=== PATIENT | female | born 1985 | race Caucasian/White ===

== ENCOUNTER 2017-02-12 13:08 | Emergency (ER) | payer MEDICAID ==
[2017-02-12 13:27] VITALS: BP 119/22
[2017-02-12] MEDS ORDERED: Ketorolac 30 MG/ML SDV IM ONE (14:05)
[2017-02-12] MEDS ORDERED: Cyclobenzaprine 10 MG Tab PO PRN (14:07)
[2017-02-12] MEDS ORDERED: Cyclobenzaprine 10 MG Tab PO ONE (14:09)
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
== END 2017-02-12 14:40 | disposition home or self-care (01) ==
LOC: KA.ED 13:08
DX: S60.221A Contusion of right hand, initial encounter (principal); M79.1 Myalgia; F41.9 Anxiety disorder, unspecified; F32.9 Major depressive disorder, single episode, unspecified; F17.210 Nicotine dependence, cigarettes, uncomplicated; Z88.5 Allergy status to narcotic agent; Z88.8 Allergy status to other drugs, medicaments and biological substances; Z79.899 Other long term (current) drug therapy; Z90.49 Acquired absence of other specified parts of digestive tract; Z90.710 Acquired absence of both cervix and uterus; Y04.0XXA Assault by unarmed brawl or fight, initial encounter
CPT/HCPCS: 73130; 96372; 99283; A9270; J1885

== ENCOUNTER 2017-05-29 12:14 | Emergency (ER) | payer MEDICAID ==
[2017-05-29] MEDS: Cephalexin 250 MG Cap PO SCH ×2 (13:00→13:34)
--- NOTE | 2017-05-29 13:16 | EDM.PDOC ---
ED HPI GENERAL MEDICAL PROBLEM - General Chief Complaint: Genitourinary Problem Stated Complaint: Dysuria Time Seen by Provider: 05/29/17 12:45 Source of Information: Reports: Patient History Limitations: Reports: No Limitations - History of Present Illness INITIAL COMMENTS - FREE TEXT/NARRATIVE: 31 YO WF presents to ER with 2 day history of dysuria with frequency and urgency. Pt reports she noticed cloudy urine this am prompting ER evaluation. Pt reports she had been taking OTC azo for her symptoms but they became worse. Pt denies any back pain, denies fever/chills and denies vomiting. Pt reports feeling generally weak and tired. Onset Date: 05/27/17 Duration: Day(s): (2) Quality: Reports: Burning Severity: Mild Associated Symptoms: Reports: No Other Symptoms, Malaise. Denies: Fever/Chills , Loss of Appetite, Nausea/Vomiting Treatments OXYACETYLENE BURNER: Reports: NSAIDS - Related Data Allergies Allergy/AdvReac Type Severity Reaction Status Date / Time celecoxib [From Celebrex] Allergy Unknown Hives Verified 05/29/17 12:46 tramadol Allergy Hives Verified 05/29/17 12:46 Home Meds: Home Meds ALPRAZolam [Xanax] 0.5 mg PO BID 03/23/15 [History] Ibuprofen 800 mg PO Q4HR PRN 04/30/16 [History] Gabapentin [Gabapentin] 1 cap PO TID 10/24/16 [History] tiZANidine HCl [Tizanidine HCl] 4 mg PO TID PRN 10/24/16 [History] Cephalexin [Keflex] 500 mg PO Q6HR #28 cap 05/29/17 [Rx] Fluconazole [Diflucan] 150 mg PO ONETIME #1 tablet 05/29/17 [Rx] Venlafaxine [Venlafaxine HCl ER] 150 mg PO DAILY 05/29/17 [History] Past Medical History - Past Health History Medical/Surgical History: Denies Medical/Surgical History HEENT History: Reports: None Gastrointestinal History: Reports: None 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 feels look like ringworm - Infectious Disease History Infectious Disease History: Reports: Hepatitis C, MRSA - Past Surgical History GI Surgical History: Reports: Appendectomy, Cholecystectomy Female Surgical History: Reports: Hysterectomy Neurological Surgical History: Reports: Lumbar Spine Social & Family History - Family History Family Medical History: Noncontributory - Tobacco Use Smoking Status *Q: Current Every Day Smoker Years of Tobacco use: 17 Packs/Tins Daily: 0.7 Used Tobacco, but Quit: No Second Hand Smoke Exposure: No - Caffeine Use Caffeine Use: Reports: Energy Drinks - Alcohol Use Days Per Week of Alcohol Use: 0 Number of Drinks Per Day: 1 Total Drinks Per Week: 0 - Recreational Drug Use Recreational Drug Use: No Drug Use in Last 12 Months: Yes Recreational Drug Type: Reports: Marijuana/Hashish Recreational Drug Use Frequency: Not Used In Over 6 Months - Living Situation & Occupation Living situation: Reports: Single ED ROS GENERAL - Review of Systems Review Of Systems: See Below Constitutional: Reports: No Symptoms HEENT: Reports: No Symptoms Respiratory: Reports: No Symptoms Cardiovascular: Reports: No Symptoms Endocrine: Reports: No Symptoms GI/Abdominal: Reports: No Symptoms : Reports: Dysuria, Frequency, Urgency Musculoskeletal: Reports: No Symptoms Skin: Reports: No Symptoms Neurological: Reports: No Symptoms Psychiatric: Reports: No Symptoms Hematologic/Lymphatic: Reports: No Symptoms Immunologic: Reports: No Symptoms ED EXAM, RENAL/ - Physical Exam Exam: See Below Exam Limited By: No Limitations General Appearance: Alert, WD/WN, No Apparent Distress Head: Atraumatic, Normocephalic Neck: Normal Inspection, Supple, Non-Tender, Full Range of Motion Respiratory/Chest: No Respiratory Distress, Lungs Clear, Normal Breath Sounds, No Accessory Muscle Use, Chest Non-Tender Cardiovascular: Normal Peripheral Pulses, Regular Rate, Rhythm, No Edema, No Gallop, No JVD, No Murmur, No Rub GI/Abdominal: Normal Bowel Sounds, Soft, Non-Tender, No Organomegaly, No Distention, No Abnormal Bruit, No Mass Back Exam: Normal Inspection, Full Range of Motion, NT Extremities: Normal Inspection, Normal Range of Motion, Non-Tender, Normal Capillary Refill, No Pedal Edema Neurological: Alert, Oriented, CN II-XII Intact, Normal Cognition, Normal Gait, Normal Reflexes, No Motor/Sensory Deficits Psychiatric: Normal Affect, Normal Mood Skin Exam: Warm, Dry, Intact, Normal Color, No Rash Lymphatic: No Adenopathy Course - Vital Signs Last Recorded V/S: Last Vital Signs Temp 37.0 C 05/29/17 12:43 Pulse 98 05/29/17 12:43 Resp 18 05/29/17 12:43 BP 126/74 05/29/17 12:43 Pulse Ox 97 05/29/17 12:43 - Orders/Labs/Meds Orders: Active Orders 24 hr Category Date Time Status CULTURE URINE [RM] Stat Lab 05/29/17 13:17 Uncollected Cephalexin [Keflex] Med 05/29/17 13:30 Active 500 mg PO Q6HR Medication Orders Cephalexin (Keflex) 500 mg PO Q6HR [facility] Stop: 05/30/17 05:01 Labs: Laboratory Tests 05/29/17 Range/Units 12:30 Specimen Type Urincc Urine Color Yellow (YELLOW) Urine Appearance Cloudy H (CLEAR) Urine pH 6.0 (5.0-9.0) Ur Specific [place] 1.025 (1.005-1.030) Urine Protein 100 H (NEGATIVE) mg/dL Urine Glucose (UA) Negative (NEGATIVE) mg/dL Urine Ketones Negative (NEGATIVE) mg/dL Urine Occult Blood Moderate H (NEGATIVE) Urine Nitrite Positive H (NEGATIVE) Urine Bilirubin Negative (NEGATIVE) Urine Urobilinogen 0.2 (0.2-1.0) E.U./dL Ur Leukocyte Esterase Large H (NEGATIVE) Urine RBC 20-30 H /HPF Urine WBC 50-75 H /HPF Ur Epithelial Cells Few /LPF Urine Bacteria Moderate H (NONE TO FEW) /HPF Urine Mucus Rare H (NEGATIVE) /LPF Meds: Medications Generic Name Dose Route Start Last Admin Trade Name Freq PRN Reason Stop Dose Admin Cephalexin 500 mg 05/29/17 13:30 Keflex PO 05/30/17 05:01 Q6HR [facility] Departure - Departure Time of Disposition: 13:15 Disposition: Home, Self-Care 01 Condition: Good Clinical Impression: UTI, Urinary tract infectious disease - Discharge Information Prescriptions: Cephalexin [Keflex] 500 mg PO Q6HR #28 cap Fluconazole [Diflucan] 150 mg PO ONETIME #1 tablet Instructions: Urinary Tract Infection, Adult, [id number] Referrals: Nola Bardales MD [Primary Care Provider] - Forms: ED Department Discharge - My Orders Last 24 Hours: My Active Orders 05/29/17 13:17 CULTURE URINE [RM] Stat 05/29/17 13:30 Cephalexin [Keflex] 500 mg PO Q6HR - Assessment/Plan Last 24 Hours: My Active Orders 05/29/17 13:17 CULTURE URINE [RM] Stat 05/29/17 13:30 Cephalexin [Keflex] 500 mg PO Q6HR Assessment:: 1. urinary tract infection Plan: 1. discharge home 2. keflex 500mg PO Q6 x 7 days 3. continue Azo PRN 4. follow up with clinic in 2 days if symptoms continue and culture results 5. return to ER for worsening symptoms
[2017-05-29 13:28] VITALS: BP 126/74
== END 2017-05-29 13:40 | disposition home or self-care (01) ==
LOC: KA.ED 12:14
DX: N39.0 Urinary tract infection, site not specified (principal); F17.210 Nicotine dependence, cigarettes, uncomplicated; F41.9 Anxiety disorder, unspecified; F32.9 Major depressive disorder, single episode, unspecified; Z90.49 Acquired absence of other specified parts of digestive tract; Z90.89 Acquired absence of other organs; Z88.8 Allergy status to other drugs, medicaments and biological substances; Z90.710 Acquired absence of both cervix and uterus; Z79.899 Other long term (current) drug therapy
CPT/HCPCS: 81001; 87086; 87088; 99283; A9270; 87186

== ENCOUNTER 2017-06-12 20:20 | Emergency (ER) | payer MEDICAID ==
[2017-06-12] MEDS ORDERED: Cephalexin 250 MG Cap PO ONE (21:18)
[2017-06-12] MEDS ORDERED: diphenhydrAMINE 25 MG Cap PO ONE (21:22)
[2017-06-12] MEDS ORDERED: diphenhydrAMINE 25 MG Cap ONE (21:22)
--- NOTE | 2017-06-12 21:28 | EDM.PDOC ---
ED HPI GENERAL MEDICAL PROBLEM - General Stated Complaint: ARM REDNESS Time Seen by Provider: 06/12/17 21:09 Source of Information: Reports: Patient History Limitations: Reports: No Limitations - History of Present Illness INITIAL COMMENTS - FREE TEXT/NARRATIVE: Patient presents with painful red patch on right deltoid that started yesterday and has worsened today. She says two days ago she was given two vaccinations at this site: one flu shot and the other she doesn't know what it was. This morning she had a fever up to 103 temp. She is taking Ibuprofen and Tylenol for pain and fever control now. She says it hurts to raise her right arm and the red area is very tender. - Related Data Allergies Allergy/AdvReac Type Severity Reaction Status Date / Time celecoxib [From Celebrex] Allergy Unknown Hives Verified 05/29/17 12:46 tramadol Allergy Hives Verified 05/29/17 12:46 Home Meds: Home Meds ALPRAZolam [Xanax] 0.5 mg PO BID 03/23/15 [History] Ibuprofen 800 mg PO Q4HR PRN 04/30/16 [History] Gabapentin [Gabapentin] 1 cap PO TID 10/24/16 [History] tiZANidine HCl [Tizanidine HCl] 4 mg PO TID PRN 10/24/16 [History] Cephalexin [Keflex] 500 mg PO Q6HR #28 cap 05/29/17 [Rx] Fluconazole [Diflucan] 150 mg PO ONETIME #1 tablet 05/29/17 [Rx] Venlafaxine [Venlafaxine HCl ER] 150 mg PO DAILY 05/29/17 [History] Past Medical History - Past Health History Medical/Surgical History: Denies Medical/Surgical History HEENT History: Reports: None Gastrointestinal History: Reports: None 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 feels look like ringworm - Infectious Disease History Infectious Disease History: Reports: Hepatitis C, MRSA - Past Surgical History GI Surgical History: Reports: Appendectomy, Cholecystectomy Female Surgical History: Reports: Hysterectomy Neurological Surgical History: Reports: Lumbar Spine Social & Family History - Family History Family Medical History: Noncontributory - Tobacco Use Smoking Status *Q: Current Every Day Smoker Years of Tobacco use: 17 Packs/Tins Daily: 0.7 Used Tobacco, but Quit: No Second Hand Smoke Exposure: No - Caffeine Use Caffeine Use: Reports: Energy Drinks - Alcohol Use Days Per Week of Alcohol Use: 0 Number of Drinks Per Day: 1 Total Drinks Per Week: 0 - Recreational Drug Use Recreational Drug Use: No Drug Use in Last 12 Months: Yes Recreational Drug Type: Reports: Marijuana/Hashish Recreational Drug Use Frequency: Not Used In Over 6 Months - Living Situation & Occupation Living situation: Reports: Single ED ROS GENERAL - Review of Systems Review Of Systems: See Below Constitutional: Reports: Fever HEENT: Reports: No Symptoms Respiratory: Denies: Shortness of Breath Cardiovascular: Denies: Chest Pain, Syncope GI/Abdominal: Denies: Abdominal Pain, Vomiting : Denies: Dysuria (she just recently finished a 3-week course of treatment for a UTI) Musculoskeletal: Reports: No Symptoms Skin: Denies: Cyanosis, Jaundice, Mottled, Pallor, Diaphoresis Neurological: Denies: Confusion, Dizziness, Syncope Psychiatric: Denies: Agitation, Anxiety, Confusion ED EXAM, SKIN/RASH Exam: See Below Exam Limited By: No Limitations General Appearance: Alert, WD/WN, No Apparent Distress Eye Exam: Bilateral Eye: EOMI, Normal Inspection, PERRL Ears: Normal External Exam, Hearing Grossly Normal Nose: Normal Inspection, No Blood Throat/Mouth: Normal Inspection, Normal Lips, Normal Voice, No Airway Compromise Head: Atraumatic, Normocephalic Neck: Normal Inspection, Full Range of Motion Respiratory/Chest: No Respiratory Distress Neurological: Alert, Oriented, Normal Cognition, No Motor/Sensory Deficits Psychiatric: Normal Affect, Normal Mood Skin: Warm, Dry, Intact, Other (There is an irregular, indurated area of erythema on right deltoid measuring approximately 8x10 cm in size and tender to palpation.) Characteristics: Patchy Associated features: Warmth, Tenderness, Induration, Inflammation. No: Swelling , Scaling, Crusting, Weeping, Rough Course - Orders/Labs/Meds Meds: Medications Discontinued Medications Generic Name Dose Route Start Last Admin Trade Name Freq PRN Reason Stop Dose Admin Cephalexin 500 mg 06/12/17 21:18 Keflex PO 06/12/17 21:19 ONETIME ONE Diphenhydramine HCl 25 mg 06/12/17 21:22 Benadryl PO 06/12/17 21:23 ONETIME ONE Doxycycline Hyclate 100 mg 06/12/17 21:18 Vibramycin PO 06/12/17 21:19 ONETIME ONE - Re-Assessments/Exams Free Text/Narrative Re-Assessment/Exam: 06/12/17 21:25 Discussed findings, expectations and treatment plan with patient. She does have a history of MRSA. So will treat accordingly. She is discharged in stable condition. Departure - Departure Time of Disposition: 21:23 Disposition: Home, Self-Care 01 Condition: Good Clinical Impression: Cellulitis of right upper arm - Discharge Information Referrals: Nola Bardales MD [Primary Care Provider] - Additional Instructions: 1. Drink 8 cups of water daily. 2. Take the two antibiotics as directed. 3. Take Benadryl 25 mg every 8 hours until the redness is improving then as needed. No driving for 8 hours after a dose of Benadryl. 4. Follow up with your PCP in a couple days if not improving or sooner if worsening.
[2017-06-13 10:43] VITALS: BP 127/73
== END 2017-06-12 21:35 | disposition home or self-care (01) ==
LOC: KA.ED 20:20
DX: L03.113 Cellulitis of right upper limb (principal); F17.210 Nicotine dependence, cigarettes, uncomplicated; Z90.49 Acquired absence of other specified parts of digestive tract; Z90.710 Acquired absence of both cervix and uterus; Z79.899 Other long term (current) drug therapy; Z88.1 Allergy status to other antibiotic agents; Z88.5 Allergy status to narcotic agent
CPT/HCPCS: 99283; A9270

== ENCOUNTER 2017-06-13 11:15 | Inpatient (IN) | payer MEDICAID, SELFPAY ==
[2017-06-13] MEDS ORDERED: Piperacillin/Tazobactam/Dext 50 ML IV SCH (12:30)
[2017-06-13] MEDS ORDERED: cefTRIAXone 1 GM in Sodium Chloride 0.9% 50 ML IV SCH (13:00)
[2017-06-13] MEDS: Sodium Chloride 0.9% 1,000 ML IV SCH ×2 (13:34→23:11)
[2017-06-13] MEDS: cefTRIAXone 1 GM Vial IVPUSH SCH (13:38)
[2017-06-13] MEDS: Ondansetron 4 MG/2 ML SDV IV PRN ×2 (13:48→19:43)
[2017-06-13] MEDS: Nicotine 21 MG/24 Hr Patch TRDERM SCH (13:50)
[2017-06-13] MEDS: Morphine 2 MG/ML Syringe IVPUSH PRN ×2 (13:51→20:02)
[2017-06-13] MEDS: Ketorolac 30 MG/ML SDV IVPUSH PRN ×2 (16:05→21:57)
[2017-06-13] MEDS: Sodium Chloride 0.9% 5 ML Syringe FLUSH PRN (16:12)
[2017-06-13] MEDS ORDERED: ALPRAZolam 0.25 MG Tab PO PRN (19:15)
[2017-06-13] MEDS: Clobetasol 0.05% Crm 30 GM Tube TOP SCH ×2 (19:45→21:55)
[2017-06-13] MEDS ORDERED: tiZANidine 4 MG Tab PO PRN (19:45)
[2017-06-13] MEDS ORDERED: busPIRone 10 MG Tab PO SCH (21:00)
[2017-06-13] MEDS ORDERED: busPIRone 5 MG Tab ONE (21:51)
[2017-06-13] MEDS: Gabapentin 300 MG Cap PO SCH (21:54)
[2017-06-13] MEDS: Acetaminophen 500 MG Tab PO PRN (21:55)
[2017-06-14] MEDS: Ketorolac 30 MG/ML SDV IVPUSH PRN ×2 (05:15→15:00)
[2017-06-14] MEDS: Morphine 2 MG/ML Syringe IVPUSH PRN ×3 (07:21→20:39)
[2017-06-14] MEDS: Sodium Chloride 0.9% 5 ML Syringe FLUSH PRN (07:23)
--- NOTE | 2017-06-14 08:51 | PCM.PN ---
- General Info Date of Service: 06/14/17 Subjective Update: Ms. Etienne reports overall feeling better today with near resolution of generalized malaise, generalized weakness, and chills. Continues to have considerable pain in R arm; states she has been having improvement with ketorolac and morphine. Admits to moderate global "squeezing" headaches last evening and this morning. Denies fevers, chills, anorexia, shortness of breath, or other skin concerns. Nursing reports some increase in erythema yesterday with new line drawn around area affected. - Patient Data Vitals - Most Recent: Last Vital Signs Temp 36.7 C 06/14/17 06:53 Pulse 99 06/14/17 06:53 Resp 16 06/14/17 06:53 BP 133/101 H 06/14/17 06:53 Pulse Ox 99 06/14/17 06:53 Weight - Most Recent: 115.122 kg I&O - Last 24 Hours: Intake & Output 06/13/17 06/14/17 06/14/17 22:59 06:59 14:59 Intake Total 1845 1448 Output Total 400 600 Balance 1445 848 Lab Results Last 24 Hours: Laboratory Results - last 24 hr 06/13/17 06/13/17 06/14/17 Range/Units 13:10 13:10 07:15 WBC 15.6 H (5.0-10.0) 10^3/uL RBC 4.09 (3.80-5.50) 10^6/uL Hgb 12.0 (12.0-16.0) g/dL Hct 37.2 (37.0-47.0) % MCV 90.8 (82.0-92.0) fL MCH 29.2 (27.0-31.0) pg MCHC 32.2 (32.0-36.0) g/dL RDW 13.2 (11.5-14.5) % Plt Count 277 (150-300) 10^3/uL MPV 7.8 (7.4-10.4) fL Neut % (Auto) 81.2 H (50.0-70.0) % Lymph % (Auto) 11.0 L (20.0-40.0) % Humphreys % (Auto) 5.4 (2.0-8.0) % Eos % (Auto) 2.0 (1.0-3.0) % Baso % (Auto) 0.4 (0.0-1.0) % Neut # (Auto) 12.7 H (2.5-7.0) 10^3/uL Lymph # (Auto) 1.7 (1.0-4.0) 10^3/uL Humphreys # (Auto) 0.8 (0.1-0.8) 10^3/uL Eos # (Auto) 0.3 (0.1-0.3) 10^3/uL Baso # (Auto) 0.1 (0.0-0.1) 10^3/uL Lactic Acid 0.9 (0.4-2.0) mmol/L C-Reactive Protein 73.2 H (0.0-0.9) mg/dL 06/14/17 Range/Units 07:15 WBC (5.0-10.0) 10^3/uL RBC (3.80-5.50) 10^6/uL Hgb (12.0-16.0) g/dL Hct (37.0-47.0) % MCV (82.0-92.0) fL MCH (27.0-31.0) pg MCHC (32.0-36.0) g/dL RDW (11.5-14.5) % Plt Count (150-300) 10^3/uL MPV (7.4-10.4) fL Neut % (Auto) (50.0-70.0) % Lymph % (Auto) (20.0-40.0) % Humphreys % (Auto) (2.0-8.0) % Eos % (Auto) (1.0-3.0) % Baso % (Auto) (0.0-1.0) % Neut # (Auto) (2.5-7.0) 10^3/uL Lymph # (Auto) (1.0-4.0) 10^3/uL Humphreys # (Auto) (0.1-0.8) 10^3/uL Eos # (Auto) (0.1-0.3) 10^3/uL Baso # (Auto) (0.0-0.1) 10^3/uL Lactic Acid (0.4-2.0) mmol/L C-Reactive Protein 35.4 H (0.0-0.9) mg/dL Med Orders - Current: Current Medications Acetaminophen (Tylenol Extra Strength) 1,000 mg PO Q6HR PRN PRN Reason: Pain Last Admin: 06/13/17 21:55 Dose: 1,000 mg Alprazolam (Xanax) 0.5 mg PO BID PRN PRN Reason: Anxiety Buspirone HCl (Buspar) 10 mg PO BID [facility] Ceftriaxone Sodium (Rocephin) 1 gm IVPUSH Q24H [facility] Last Admin: 06/13/17 13:38 Dose: 1 gm Clobetasol Propionate (Clobetasol 0.05%) 0 gm TOP BID [facility] Last Admin: 06/13/17 21:55 Dose: 1 applic Gabapentin (Neurontin) 300 mg PO BEDTIME [facility] Last Admin: 06/13/17 21:54 Dose: 300 mg Vancomycin HCl 1.25 gm/ Sodium (Chloride) 275 mls @ 137 mls/hr IV Q12H [facility] Last Admin: 06/14/17 00:29 Dose: 137 mls/hr Sodium Chloride (Normal Saline) 1,000 mls @ 125 mls/hr IV ASDIRECTED [facility] Last Admin: 06/13/17 23:11 Dose: 125 mls/hr Ketorolac Tromethamine (Toradol) 30 mg IVPUSH Q6H PRN PRN Reason: Pain Stop: 06/18/17 12:46 Last Admin: 06/14/17 05:15 Dose: 30 mg Morphine Sulfate (Morphine) 2 mg IVPUSH Q4H PRN PRN Reason: Pain (severe 7-10) Last Admin: 06/14/17 07:21 Dose: 2 mg Nicotine (Habitrol) 21 mg TRDERM DAILY [facility] Last Admin: 06/13/17 13:50 Dose: 21 mg Ondansetron HCl (Zofran) 4 mg IV Q4H PRN PRN Reason: Nausea/Vomiting Last Admin: 06/13/17 19:43 Dose: 4 mg Sodium Chloride (Syrex Flush) 5 ml FLUSH Q8HR PRN PRN Reason: Keep Vein Open Last Admin: 06/14/17 07:23 Dose: 5 ml Tizanidine HCl (Zanaflex) 4 mg PO TID PRN PRN Reason: SPASMS Vancomycin HCl (Pharmacy To Dose - Vancomycin) 1 dose .XX ASDIRECTED [facility] Venlafaxine HCl (Effexor Xr) 150 mg PO DAILY [facility] Discontinued Medications Buspirone HCl (Buspar) 10 mg PO BID [facility] Last Admin: 06/13/17 21:54 Dose: 10 mg Buspirone HCl (Buspar) Confirm Administered Dose 10 mg .ROUTE .STK-MED ONE Stop: 06/13/17 21:52 Last Admin: 06/13/17 22:28 Dose: Not Given Piperacillin/Tazobactam/Dextrose (Zosyn In Dextrose Iso-Osmotic 3.375 Gm) 50 mls @ 100 mls/hr IV Q6H [facility] Last Admin: 06/13/17 14:01 Dose: Not Given Vancomycin HCl 1.25 gm/ Sodium (Chloride) 275 mls @ 137 mls/hr IV Q12H [facility] - Exam Physical Findings Comments:: GENERAL: Well-appearing adult female lying in hospital bed in no acute distress. HEENT: Normocephalic, atraumatic. Conjunctiva clear. Mucous membranes moist. CV: Regular rate and rhythm, no murmurs, rubs, or gallops. 2+ radial pulses. PULMONARY: Normal effort, clear to auscultation bilaterally, no wheezes, rales, or rhonchi. ABDOMEN: Positive bowel sounds, soft, nontender, nondistended. EXTREMITIES: No pedal edema. MUSCULOSKELETAL: R elbow and wrist with full active ROM. NEUROLOGICAL: No obvious deficits. Sensation to light touch intact in RUE dermatomes. DERMATOLOGIC: Erythema of right lateral arm marked with outline of area affected. Minimal warmth. No drainage or blistering. PSYCHIATRIC: Alert, interactive, appropriate affect. - Problem List Review Problem List Initiated/Reviewed/Updated: Yes - My Orders Last 24 Hours: My Active Orders 06/13/17 12:46 Ketorolac [Toradol] 30 mg IVPUSH Q6H PRN 06/13/17 13:00 Sodium Chloride 0.9% [Normal Saline] 1,000 ml IV ASDIRECTED cefTRIAXone [Rocephin] 1 gm IVPUSH Q24H 06/13/17 14:11 Admission Status [Patient Status] [ADT] Routine 06/13/17 19:15 ALPRAZolam [Xanax] 0.5 mg PO BID PRN Acetaminophen [Tylenol Extra Strength] 1,000 mg PO Q6HR PRN 06/13/17 19:45 tiZANidine [Zanaflex] 4 mg PO TID PRN 06/13/17 21:00 Gabapentin [Neurontin] 300 mg PO BEDTIME 06/14/17 09:00 Venlafaxine [Effexor XR] 150 mg PO DAILY busPIRone [Buspar] 10 mg PO BID 06/15/17 05:11 BASIC METABOLIC PANEL,BMP [CHEM] AM CBC WITH AUTO DIFF [HEME] AM CRP [C-REACTIVE PROTEIN] [CHEM] AM - Assessment Assessment:: 31yoF admitted on 06/13/17 for RUE cellulitis at site of influenza and pnuemonia vaccines given on 06/10/17. # Cellulitis: Clinical improvement in systemic symptoms and lack of local progression in the last 12 hours. Also improvement in WBC, neutrophilia, and CRP. Blood cultures with no growth thus far. Continue vancomycin and ceftriaxone , with hope to transition to oral antibiotics as early as tomorrow if ongoing clinical improvement. Continue acetaminophen, ketorolac and breakthrough use of morphine for pain; discussed importance of using morphine sparingly, especially as this is likely contributing to headache, and that NSAIDs would be more helpful in management of the erythema. Recheck CBC and CRP tomorrow. # Anxiety: Stable. Continue home regimen of venlafaxine, buspirone, and alprazolam. # Chronic low back pain: Stable. Continue gabapentin and tizanidine. # Tobacco dependence: Continue nicotine patch. Hospitalization details: # FEN: Stop IVF. Electrolytes normal. Regular diet. # PPX: Low risk for DVT=Ambulate and SCDs while in bed. # Code status: Full. # Disposition: Continue on inpatient. Anticipate discharge to home in 1-2 days pending culture results and transition to oral antibiotics.
[2017-06-14] MEDS: Venlafaxine 150 MG Cap.ER PO SCH (09:36)
[2017-06-14] MEDS: busPIRone 5 MG Tab PO SCH ×2 (09:36→20:39)
[2017-06-14] MEDS ORDERED: Sodium Chloride 0.9% 100 ML IV SCH (11:00)
[2017-06-14] MEDS: Nicotine 21 MG/24 Hr Patch TRDERM SCH (11:43)
[2017-06-14] MEDS: Clobetasol 0.05% Crm 30 GM Tube TOP SCH ×2 (11:44→20:39)
[2017-06-14] MEDS: cefTRIAXone 1 GM Vial IVPUSH SCH (14:10)
[2017-06-14] MEDS: Gabapentin 300 MG Cap PO SCH (20:39)
[2017-06-15] MEDS: Morphine 2 MG/ML Syringe IVPUSH PRN (04:17)
[2017-06-15] MEDS: Acetaminophen 500 MG Tab PO PRN (05:42)
[2017-06-15] MEDS: Ketorolac 30 MG/ML SDV IVPUSH PRN (05:56)
[2017-06-15 06:02] VITALS: BP 112/76
[2017-06-15 08:16] LABS: CHLORIDE,CL 104 mmol/L (98-115); SODIUM,NA 141 mmol/L (136-145)
[2017-06-15] MEDS: Nicotine 21 MG/24 Hr Patch TRDERM SCH (09:53)
[2017-06-15] MEDS: Venlafaxine 150 MG Cap.ER PO SCH (09:53)
[2017-06-15] MEDS: busPIRone 5 MG Tab PO SCH (09:53)
[2017-06-15] MEDS: Clobetasol 0.05% Crm 30 GM Tube TOP SCH (09:55)
--- NOTE | 2017-06-15 12:32 | PCM.DCSUM1 ---
Discharge Summary - Hospital Course Free Text/Narrative:: 31yoF admitted on 06/13/17 for RUE cellulitis at site of influenza and pnuemonia vaccines given on 06/10/17. # RUE cellulitis: Initially started on IVF, vancomycin, and ceftriaxone in addition to acetaminophen, ketorolac and breakthrough use of morphine for pain. Clinical improvement in systemic symptoms and excellent clinical improvement in RUE erythema during stay. Also improvement in WBC, neutrophilia, and CRP. Blood cultures with no growth x2 days. Will transition to doxycycline 100mg BID x 7 days for coverage to include MRSA. Discussed pain managment to include cool compresses and antiinflammatories with ketorolac. She is concerned about sleep given the discomfort and requested narcotic pain medication for breakthrough use at night; agreed to prescribe 5 tablets of [place] 5/325mg to be used at nighttime for breakthrough pain. Follow-up next week in clinic. Chronic medical conditions: # Anxiety: Stable. Continued home venlafaxine, buspirone, and alprazolam. # Chronic low back pain: Stable. Continued home gabapentin and tizanidine. # Tobacco dependence: Provided nicotine patch. Precontemplative stage of change. Encouraged consideration of cutting back and cessation. - Discharge Data Discharge Date: 06/15/17 Discharge Disposition: Home, Self-Care 01 Condition: Good - Patient Instructions Diet: Regular Diet as Tolerated Activity: Apply Ice, As Tolerated Showering/Bathing: May Shower Wound/Incision Care: Keep Operative Site/Wound Site Clean and Dry Notify Provider of: Fever, Increased Pain, Swelling and Redness, Drainage, Nausea and/or Vomiting - Discharge Plan Prescriptions/Med Rec: Doxycycline [Vibramycin] 100 mg PO BID 7 Days #14 tablet Hydrocodone/Acetaminophen [[place] 5-325] 1 tab PO Q6H PRN 5 Days #5 tablet PRN Reason: Pain (Severe 7-10) Ketorolac [Toradol] 10 mg PO Q6H PRN #30 tablet PRN Reason: Pain Home Medications: Home Meds ALPRAZolam [Xanax] 0.5 mg PO BID PRN 03/23/15 [History] Ibuprofen 800 mg PO Q6H PRN 04/30/16 [History] Gabapentin 300 mg PO BEDTIME 10/24/16 [History] tiZANidine HCl [Tizanidine HCl] 4 mg PO TID PRN 10/24/16 [History] Venlafaxine [Venlafaxine HCl ER] 150 mg PO DAILY 05/29/17 [History] Acetaminophen [Tylenol Extra Strength] 1,000 mg PO Q6HR PRN 06/13/17 [History] Clobetasol Propionate [Temovate] 1 gm TP BID 06/13/17 [History] Fluconazole [Diflucan] 150 mg PO DAILY 06/13/17 [History] Meclizine [Antivert] 12.5 mg PO Q6H PRN 06/13/17 [History] busPIRone [Buspar] 10 mg PO BID 06/13/17 [History] Doxycycline [Vibramycin] 100 mg PO BID 7 Days #14 tablet 06/15/17 [Rx] Hydrocodone/Acetaminophen [[place] 5-325] 1 tab PO Q6H PRN 5 Days #5 tablet [Rx] Ketorolac [Toradol] 10 mg PO Q6H PRN #30 tablet 06/15/17 [Rx] - Discharge Summary/Plan Comment DC Time >30 min.: Yes - General Info Subjective Update: Ms. Etienne reports feeling well today with much improvement in her arm pain, redness, warmth, and swelling. She has had complete resolution of generalized malaise, generalized weakness, and chills. Denies fevers, chills, anorexia, shortness of breath, or other skin concerns. No nursing concerns. - Patient Data Vitals - Most Recent: Last Vital Signs Temp 36.9 C 06/15/17 05:59 Pulse 82 06/15/17 05:59 Resp 20 06/15/17 05:59 BP 112/76 06/15/17 05:59 Pulse Ox 98 06/15/17 05:59 Weight - Most Recent: 115.122 kg I&O - Last 24 hours: Intake & Output 06/14/17 06/15/17 06/15/17 22:59 06:59 14:59 Intake Total 570 730 Output Total 100 Balance 470 730 Lab Results - Last 24 hrs: Laboratory Results - last 24 hr 06/15/17 06/15/17 Range/Units 07:30 07:30 WBC 10.4 H (5.0-10.0) 10^3/uL RBC 4.02 (3.80-5.50) 10^6/uL Hgb 11.7 L (12.0-16.0) g/dL Hct 36.3 L (37.0-47.0) % MCV 90.5 (82.0-92.0) fL MCH 29.1 (27.0-31.0) pg MCHC 32.1 (32.0-36.0) g/dL RDW 13.1 (11.5-14.5) % Plt Count 290 (150-300) 10^3/uL MPV 7.7 (7.4-10.4) fL Neut % (Auto) 74.0 H (50.0-70.0) % Lymph % (Auto) 16.9 L (20.0-40.0) % [place] % (Auto) 5.9 (2.0-8.0) % Eos % (Auto) 2.4 (1.0-3.0) % Baso % (Auto) 0.8 (0.0-1.0) % Neut # (Auto) 7.7 H (2.5-7.0) 10^3/uL Lymph # (Auto) 1.8 (1.0-4.0) 10^3/uL [place] # (Auto) 0.6 (0.1-0.8) 10^3/uL Eos # (Auto) 0.2 (0.1-0.3) 10^3/uL Baso # (Auto) 0.1 (0.0-0.1) 10^3/uL Sodium 141 (136-145) mmol/L Potassium 4.3 (3.3-5.3) mmol/L Chloride 104 (98-115) mmol/L Carbon Dioxide 26.0 (21.0-32.0) mmol/L BUN 8 (6-25) mg/dL Creatinine 0.64 (0.51-1.17) mg/dL Est Cr Clr Drug Dosing 115.66 mL/min Estimated GFR (MDRD) > 60 mL/min Glucose 112 H (70-110) mg/dL Calcium 9.5 (8.7-10.3) mg/dL C-Reactive Protein 19.2 H (0.0-0.9) mg/dL JACKLYN Results - Last 24 hrs: Microbiology 06/13/17 13:30 Aerobic Blood Culture - Preliminary Blood - Venous - Lab Draw NO GROWTH AFTER 1 DAY Anaerobic Blood Culture - Preliminary NO GROWTH AFTER 1 DAY 06/13/17 13:10 Aerobic Blood Culture - Preliminary Blood - Venous NO GROWTH AFTER 1 DAY Anaerobic Blood Culture - Preliminary NO GROWTH AFTER 1 DAY Med Orders - Current: Current Medications Discontinued Medications Acetaminophen (Tylenol Extra Strength) 1,000 mg PO Q6HR PRN PRN Reason: Pain Last Admin: 06/15/17 05:42 Dose: 1,000 mg Alprazolam (Xanax) 0.5 mg PO BID PRN PRN Reason: Anxiety Last Admin: 06/14/17 20:42 Dose: 0.5 mg Buspirone HCl (Buspar) 10 mg PO BID [facility] Last Admin: 06/13/17 21:54 Dose: 10 mg Buspirone HCl (Buspar) Confirm Administered Dose 10 mg .ROUTE .STK-MED ONE Stop: 06/13/17 21:52 Last Admin: 06/13/17 22:28 Dose: Not Given Buspirone HCl (Buspar) 10 mg PO BID [facility] Last Admin: 06/15/17 09:53 Dose: 10 mg Ceftriaxone Sodium (Rocephin) 1 gm IVPUSH Q24H [facility] Last Admin: 06/14/17 14:10 Dose: 1 gm Clobetasol Propionate (Clobetasol 0.05%) 0 gm TOP BID [facility] Last Admin: 06/15/17 09:55 Dose: 1 applic Gabapentin (Neurontin) 300 mg PO BEDTIME [facility] Last Admin: 06/14/17 20:39 Dose: 300 mg Piperacillin/Tazobactam/Dextrose (Zosyn In Dextrose Iso-Osmotic 3.375 Gm) 50 mls @ 100 mls/hr IV Q6H [facility] Last Admin: 06/13/17 14:01 Dose: Not Given Vancomycin HCl 1.25 gm/ Sodium (Chloride) 275 mls @ 137 mls/hr IV Q12H [facility] Vancomycin HCl 1.25 gm/ Sodium (Chloride) 275 mls @ 137 mls/hr IV Q12H [facility] Last Admin: 06/14/17 00:29 Dose: 137 mls/hr Sodium Chloride (Normal Saline) 1,000 mls @ 125 mls/hr IV ASDIRECTED [facility] Last Admin: 06/13/17 23:11 Dose: 125 mls/hr Sodium Chloride (Normal Saline) 100 mls @ 20 mls/hr IV DAILY@1100 [facility] Last Admin: 06/14/17 11:45 Dose: 20 mls/hr Vancomycin HCl 1.25 gm/ Sodium (Chloride) 275 mls @ 137 mls/hr IV Q12H [facility] Last Admin: 06/14/17 22:38 Dose: 137 mls/hr Ketorolac Tromethamine (Toradol) 30 mg IVPUSH Q6H PRN PRN Reason: Pain Stop: 06/18/17 12:46 Last Admin: 06/15/17 05:56 Dose: 30 mg Morphine Sulfate (Morphine) 2 mg IVPUSH Q4H PRN PRN Reason: Pain (severe 7-10) Last Admin: 06/15/17 04:17 Dose: 2 mg Nicotine (Habitrol) 21 mg TRDERM DAILY [facility] Last Admin: 06/15/17 09:53 Dose: 21 mg Ondansetron HCl (Zofran) 4 mg IV Q4H PRN PRN Reason: Nausea/Vomiting Last Admin: 06/13/17 19:43 Dose: 4 mg Sodium Chloride (Syrex Flush) 5 ml FLUSH Q8HR PRN PRN Reason: Keep Vein Open Last Admin: 06/14/17 07:23 Dose: 5 ml Tizanidine HCl (Zanaflex) 4 mg PO TID PRN PRN Reason: SPASMS Vancomycin HCl (Pharmacy To Dose - Vancomycin) 1 dose .XX ASDIRECTED [facility] Venlafaxine HCl (Effexor Xr) 150 mg PO DAILY [facility] Last Admin: 06/15/17 09:53 Dose: 150 mg - Exam Physical Findings Comments:: GENERAL: Well-appearing adult female sitting on edge of hospital bed in no acute distress. HEENT: Normocephalic, atraumatic. Conjunctiva clear. Mucous membranes moist. CV: Regular rate and rhythm, no murmurs, rubs, or gallops. 2+ radial pulses. PULMONARY: Normal effort, clear to auscultation bilaterally, no wheezes, rales, or rhonchi. ABDOMEN: Positive bowel sounds, soft, nontender, nondistended. EXTREMITIES: No pedal edema. MUSCULOSKELETAL: R shoulder, elbow and wrist with full active ROM. NEUROLOGICAL: No obvious deficits. Sensation to light touch intact in RUE dermatomes. DERMATOLOGIC: Interval improvement in erythema of right lateral arm with area of redness well within prior zaragoza. No warmth, drainage or blistering. PSYCHIATRIC: Alert, interactive, appropriate affect. *Q Meaningful Use (DIS) - VTE *Q VTE Criteria *Q: - Stroke *Q Stroke Criteria *Q: - AMI *Q AMI Criteria *Q:
== END 2017-06-15 10:55 | disposition home or self-care (01) | DRG 603 ==
LOC: KA.MS 11:55 → OBSVTOIN 14:11
PROVIDERS: ADMIT Physician Assistant; ATTEND Family Medicine
DX: L03.113 Cellulitis of right upper limb (principal); T88.0XXA Infection following immunization, initial encounter; T78.49XA Other allergy, initial encounter; L30.9 Dermatitis, unspecified; X58.XXXA Exposure to other specified factors, initial encounter; R51 Headache; F41.8 Other specified anxiety disorders; M54.5 Low back pain; Z88.8 Allergy status to other drugs, medicaments and biological substances; G89.29 Other chronic pain; F17.200 Nicotine dependence, unspecified, uncomplicated; Z79.899 Other long term (current) drug therapy
CPT/HCPCS: 36415; 83605; 86140; 87040 ×2; A9270; J0696; J2270; J2405; J3370; J7030; J7050; 80048; 85025; J1885

== ENCOUNTER 2017-08-13 15:52 | Emergency (ER) | payer MEDICAID ==
--- NOTE | 2017-08-13 16:56 | EDM.PDOC ---
ED HPI GENERAL MEDICAL PROBLEM - General Chief Complaint: Abdominal Pain Stated Complaint: ABDOMINAL PAIN Time Seen by Provider: 08/13/17 16:10 Source of Information: Reports: Patient History Limitations: Reports: No Limitations - History of Present Illness INITIAL COMMENTS - FREE TEXT/NARRATIVE: 32-year-old female presents to emergency room with complaints of increasing epigastric pain over the last 48 hours. Patient states she's had some nausea. She denies vomiting. She had mild bouts of diarrhea 2 over the last 48 hours. Her symptoms have been tolerable. She was concerned because her history of heme positive for hepatitis C and also having a bout of pancreatitis 2 years ago but this could be causation. She is status post cholecystectomy and appendectomy in the past. She has not been running any fever or chills. States she takes a lot of Tylenol ibuprofen for treatment of her chronic back pain. She denies any blood in her stools she has no dysuria or hematuria. She's not had any vaginal bleeding. She states currently her pain is very minimal but wanted to come in to "Get her lab work checked out to make sure something isn't going wrong." Onset: Gradual Duration: Day(s):, Intermittent Location: Reports: Abdomen Quality: Reports: Dull Severity: Moderate Improves with: Reports: None Worsens with: Reports: None Associated Symptoms: Reports: Nausea/Vomiting (nausea). Denies: Confusion, Chest Pain, Cough, Diaphoresis, Fever/Chills, Loss of Appetite, Shortness of Breath, Weakness Treatments TELEPHONE CLEANER: Reports: Acetaminophen, NSAIDS Upper Abdominal Pain Score (Numeric/FACES): 8 - Related Data Allergies Allergy/AdvReac Type Severity Reaction Status Date / Time celecoxib [From Celebrex] Allergy Unknown Hives Verified 08/13/17 16:01 tramadol Allergy Hives Verified 08/13/17 16:01 Home Meds: Home Meds ALPRAZolam [Xanax] 0.5 mg PO BID PRN 03/23/15 [History] Ibuprofen 800 mg PO Q6H PRN 04/30/16 [History] Gabapentin 300 mg PO BEDTIME 10/24/16 [History] Venlafaxine [Venlafaxine HCl ER] 150 mg PO DAILY 05/29/17 [History] Acetaminophen [Tylenol Extra Strength] 1,000 mg PO Q6HR PRN 06/13/17 [History] Clobetasol Propionate [Temovate] 1 gm TP BID 06/13/17 [History] Meclizine [Antivert] 12.5 mg PO Q6H PRN 06/13/17 [History] busPIRone [Buspar] 10 mg PO BID 06/13/17 [History] Ketorolac [Toradol] 10 mg PO Q6H PRN #30 tablet 06/15/17 [Rx] Baclofen 10 mg PO TID 08/13/17 [History] Sulfamethoxazole/Trimethoprim [Bactrim 400-80 MG] 1 tab PO BID 08/13/17 [History ] Past Medical History - Past Health History Medical/Surgical History: Denies Medical/Surgical History HEENT History: Reports: None Gastrointestinal History: Reports: None Genitourinary History: Reports: UTI, Recurrent 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 feels look like ringworm; pt states she has appt with dermatology in August. - Infectious Disease History Infectious Disease History: Reports: Hepatitis C, MRSA - Past Surgical History GI Surgical History: Reports: Appendectomy, Cholecystectomy Female Surgical History: Reports: Hysterectomy Neurological Surgical History: Reports: Lumbar Spine Musculoskeletal Surgical History: Reports: Other (See Below) Other Musculoskeletal Surgeries/Procedures:: Back surgery 06/20 Social & Family History - Family History Family Medical History: Noncontributory - Tobacco Use Smoking Status *Q: Current Every Day Smoker Years of Tobacco use: 44 Packs/Tins Daily: 1 Used Tobacco, but Quit: No Second Hand Smoke Exposure: Yes - Caffeine Use Caffeine Use: Reports: Coffee - Alcohol Use Days Per Week of Alcohol Use: 7 Number of Drinks Per Day: 2 Total Drinks Per Week: 14 - Recreational Drug Use Recreational Drug Use: No Drug Use in Last 12 Months: Yes Recreational Drug Type: Reports: Marijuana/Hashish Recreational Drug Use Frequency: Not Used In Over 6 Months - Living Situation & Occupation Living situation: Reports: Single ED ROS GENERAL - Review of Systems Review Of Systems: See Below Constitutional: Reports: No Symptoms HEENT: Reports: No Symptoms Respiratory: Reports: No Symptoms Cardiovascular: Reports: Other (heart racing) Endocrine: Reports: No Symptoms GI/Abdominal: Reports: Abdominal Pain, Diarrhea, Nausea. Denies: Stool Incontinence, Vomiting : Reports: No Symptoms Musculoskeletal: Reports: Back Pain (chronic) Skin: Reports: Other (Hep C postitive). Denies: Jaundice, Pruritis, Rash, Change in Hair/Nails Neurological: Denies: Headache, Numbness, Seizure, Tingling, Trouble Speaking Psychiatric: Reports: Anxiety, Depression Immunologic: Reports: No Symptoms ED EXAM, GI/ABD - Physical Exam Exam: See Below Exam Limited By: No Limitations General Appearance: Alert, No Apparent Distress, Obese Eyes: Bilateral: Normal Appearance, EOMI Ears: Normal External Exam, Normal Canal, Hearing Grossly Normal, Normal TMs Nose: Normal Inspection, Normal Mucosa, No Blood Throat/Mouth: Normal Inspection, Normal Lips, Normal Oropharynx, Normal Voice, No Airway Compromise Head: Atraumatic, Normocephalic Neck: Normal Inspection, Supple, Non-Tender, Full Range of Motion. No: Carotid Bruit, Lymphadenopathy (L), Lymphadenopathy (R) Respiratory/Chest: No Respiratory Distress, Lungs Clear, Normal Breath Sounds, No Accessory Muscle Use, Chest Non-Tender Cardiovascular: Normal Peripheral Pulses, Regular Rate, Rhythm, No Edema, No Murmur GI/Abdominal Exam: Normal Bowel Sounds, Soft, No Organomegaly, No Distention, No Abnormal Bruit, No Mass, Tender Back Exam: Normal Inspection Extremities: Normal Inspection, Normal Range of Motion, No Pedal Edema Neurological: Alert, Oriented, Normal Cognition, No Motor/Sensory Deficits Psychiatric: Normal Affect, Normal Mood Skin Exam: Warm, Dry, Intact, Normal Color, No Rash Lymphatic: No Adenopathy Course - Vital Signs Last Recorded V/S: Last Vital Signs Temp 96.9 F 08/13/17 16:08 Pulse 100 08/13/17 17:39 Resp 18 08/13/17 17:39 BP 129/82 08/13/17 17:39 Pulse Ox 97 08/13/17 17:39 - Orders/Labs/Meds Orders: Active Orders 24 hr Category Date Time Status EKG Documentation Completion [RC] ASDIRECTED Care 08/13/17 16:49 Active AMYLASE [CHEM] Stat Lab 08/13/17 17:45 Received COMPREHENSIVE METABOLIC PN,CMP [CHEM] Stat Lab 08/13/17 17:45 Received LIPASE [CHEM] Stat Lab 08/13/17 17:45 Received EKG 12 Lead [EK] Routine Ther 08/13/17 16:49 Ordered Labs: Laboratory Tests 08/13/17 Range/Units 17:45 WBC 11.8 H (5.0-10.0) 10^3/uL RBC 5.18 (3.80-5.50) 10^6/uL Hgb 15.0 (12.0-16.0) g/dL Hct 45.9 (37.0-47.0) % MCV 88.7 (82.0-92.0) fL MCH 29.0 (27.0-31.0) pg MCHC 32.7 (32.0-36.0) g/dL RDW 12.9 (11.5-14.5) % Plt Count 381 H (150-300) 10^3/uL MPV 8.3 (7.4-10.4) fL Neut % (Auto) 74.5 H (50.0-70.0) % Lymph % (Auto) 21.1 (20.0-40.0) % [place] % (Auto) 3.0 (2.0-8.0) % Eos % (Auto) 1.2 (1.0-3.0) % Baso % (Auto) 0.2 (0.0-1.0) % Neut # (Auto) 8.8 H (2.5-7.0) 10^3/uL Lymph # (Auto) 2.5 (1.0-4.0) 10^3/uL [place] # (Auto) 0.4 (0.1-0.8) 10^3/uL Eos # (Auto) 0.1 (0.1-0.3) 10^3/uL Baso # (Auto) 0.0 (0.0-0.1) 10^3/uL - Re-Assessments/Exams Free Text/Narrative Re-Assessment/Exam: 08/13/17 18:40 Feeling well, would like to go home. Departure - Departure Time of Disposition: 18:40 Disposition: Home, Self-Care 01 Clinical Impression: Abdominal pain Qualifiers: Abdominal location: epigastric Qualified Code(s): R10.13 - Epigastric pain - Discharge Information Instructions: Heartburn, [id number] Referrals: Stuart Barillas PA-C [Primary Care Provider] - Forms: ED Department Discharge Additional Instructions: 1. Zantac 75 mg daily. 2. Tums or chewable tabs every 8 hours when necessary. 3. Avoid spicy, fatty, red sauce foods. 4. Follow your primary care symptoms persist. - My Orders Last 24 Hours: My Active Orders 08/13/17 16:49 EKG Documentation Completion [RC] ASDIRECTED EKG 12 Lead [EK] Routine 08/13/17 17:45 AMYLASE [CHEM] Stat COMPREHENSIVE METABOLIC PN,CMP [CHEM] Stat LIPASE [CHEM] Stat - Assessment/Plan Last 24 Hours: My Active Orders 08/13/17 16:49 EKG Documentation Completion [RC] ASDIRECTED EKG 12 Lead [EK] Routine 08/13/17 17:45 AMYLASE [CHEM] Stat COMPREHENSIVE METABOLIC PN,CMP [CHEM] Stat LIPASE [CHEM] Stat Assessment:: Epigastric abdominal pain Plan: 1. Zantac 75 mg daily. 2. Tums or chewable tabs every 8 hours when necessary. 3. Avoid spicy, fatty, red sauce foods. 4. Follow your primary care symptoms persist.
[2017-08-13 17:40] VITALS: BP 129/82
[2017-08-13 18:26] LABS: CHLORIDE,CL 102 mmol/L (98-115); SODIUM,NA 139 mmol/L (136-145)
== END 2017-08-13 18:50 | disposition home or self-care (01) ==
LOC: KA.ED 15:52
DX: R10.13 Epigastric pain (principal); Z79.899 Other long term (current) drug therapy; F17.210 Nicotine dependence, cigarettes, uncomplicated
CPT/HCPCS: 36415; 80053; 82150; 83690; 85025; 93005; 99283

== ENCOUNTER 2017-08-28 23:15 | Emergency (ER) | payer MEDICAID ==
[2017-08-28 23:34] VITALS: BP 136/89
--- NOTE | 2017-08-28 23:53 | EDM.PDOC ---
ED HPI GENERAL MEDICAL PROBLEM - General Chief Complaint: General Stated Complaint: pain Time Seen by Provider: 08/28/17 23:30 Source of Information: Reports: Patient History Limitations: Reports: No Limitations - History of Present Illness INITIAL COMMENTS - FREE TEXT/NARRATIVE: 32 YO WF presents to ER with complaints of left sided low back and buttock pain with radiation down left leg x 1 month. Pt with history of chronic back pain. Pt currently taking toradol, motrin, tylenol and baclofen for pain relief without improvement. Pt states she sees pain management for the first time in 2 weeks. Pt denies any difficulty walking or standing, denies any weakness but states tonight her pain became worse prompting ER visit. Duration: Chronic Location: Reports: Back, Lower Extremity, Left Quality: Reports: Ache Severity: Moderate Improves with: Reports: None Worsens with: Reports: None Associated Symptoms: Reports: No Other Symptoms Treatments WELDING OPERATOR: Reports: Acetaminophen, NSAIDS - Related Data Allergies Allergy/AdvReac Type Severity Reaction Status Date / Time celecoxib [From Celebrex] Allergy Unknown Hives Verified 08/28/17 23:21 tramadol Allergy Hives Verified 08/28/17 23:21 Home Meds: Home Meds ALPRAZolam [Xanax] 0.5 mg PO BID PRN 03/23/15 [History] Ibuprofen 800 mg PO Q6H PRN 04/30/16 [History] Gabapentin 300 mg PO BEDTIME 10/24/16 [History] Venlafaxine [Venlafaxine HCl ER] 150 mg PO DAILY 05/29/17 [History] Acetaminophen [Tylenol Extra Strength] 1,000 mg PO Q6HR PRN 06/13/17 [History] Clobetasol Propionate [Temovate] 1 gm TP BID 06/13/17 [History] Meclizine [Antivert] 12.5 mg PO Q6H PRN 06/13/17 [History] busPIRone [Buspar] 10 mg PO BID 06/13/17 [History] Ketorolac [Toradol] 10 mg PO Q6H PRN #30 tablet 06/15/17 [Rx] Baclofen 10 mg PO TID 08/13/17 [History] Sulfamethoxazole/Trimethoprim [Bactrim 400-80 MG] 1 tab PO BID 08/13/17 [History ] predniSONE [Prednisone] 20 mg PO DAILY #15 tablet 08/28/17 [Rx] Past Medical History - Past Health History Medical/Surgical History: Denies Medical/Surgical History HEENT History: Reports: None Gastrointestinal History: Reports: None Genitourinary History: Reports: UTI, Recurrent 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 feels look like ringworm; pt states she has appt with dermatology in August. - Infectious Disease History Infectious Disease History: Reports: Hepatitis C, MRSA - Past Surgical History GI Surgical History: Reports: Appendectomy, Cholecystectomy Female Surgical History: Reports: Hysterectomy Neurological Surgical History: Reports: Lumbar Spine Musculoskeletal Surgical History: Reports: Other (See Below) Other Musculoskeletal Surgeries/Procedures:: Back surgery 06/20 Social & Family History - Family History Family Medical History: Noncontributory - Tobacco Use Smoking Status *Q: Current Every Day Smoker Years of Tobacco use: 44 Packs/Tins Daily: 1 Used Tobacco, but Quit: No Second Hand Smoke Exposure: Yes - Caffeine Use Caffeine Use: Reports: Coffee - Alcohol Use Days Per Week of Alcohol Use: 7 Number of Drinks Per Day: 2 Total Drinks Per Week: 14 - Recreational Drug Use Recreational Drug Use: No Drug Use in Last 12 Months: Yes Recreational Drug Type: Reports: Marijuana/Hashish Recreational Drug Use Frequency: Not Used In Over 6 Months - Living Situation & Occupation Living situation: Reports: Single ED ROS GENERAL - Review of Systems Review Of Systems: See Below Constitutional: Reports: No Symptoms HEENT: Reports: No Symptoms Respiratory: Reports: No Symptoms Cardiovascular: Reports: No Symptoms Endocrine: Reports: No Symptoms GI/Abdominal: Reports: No Symptoms : Reports: No Symptoms Musculoskeletal: Reports: Back Pain, Leg Pain Skin: Reports: No Symptoms Neurological: Reports: No Symptoms Psychiatric: Reports: No Symptoms Hematologic/Lymphatic: Reports: No Symptoms Immunologic: Reports: No Symptoms ED EXAM, GENERAL - Physical Exam Exam: See Below Exam Limited By: No Limitations General Appearance: Alert, WD/WN, No Apparent Distress Head: Atraumatic, Normocephalic Neck: Normal Inspection, Supple, Non-Tender, Full Range of Motion Respiratory/Chest: No Respiratory Distress, Lungs Clear, Normal Breath Sounds, No Accessory Muscle Use, Chest Non-Tender Cardiovascular: Normal Peripheral Pulses, Regular Rate, Rhythm, No Edema, No Gallop, No JVD, No Murmur, No Rub GI/Abdominal: Normal Bowel Sounds, Soft, Non-Tender, No Organomegaly, No Distention, No Abnormal Bruit, No Mass Back Exam: Muscle Spasm, Paraspinal Tenderness Extremities: Normal Inspection, Normal Range of Motion, Non-Tender, Normal Capillary Refill, No Pedal Edema Neurological: Alert, Oriented, CN II-XII Intact, Normal Cognition, Normal Gait, Normal Reflexes, No Motor/Sensory Deficits Psychiatric: Normal Affect, Normal Mood Skin Exam: Warm, Dry, Intact, Normal Color, No Rash Lymphatic: No Adenopathy Course - Vital Signs Last Recorded V/S: Last Vital Signs Temp 37.0 C 08/28/17 23:33 Pulse 84 08/28/17 23:33 Resp 20 08/28/17 23:33 BP 136/89 08/28/17 23:33 Pulse Ox Departure - Departure Time of Disposition: 23:59 Disposition: Home, Self-Care 01 Condition: Good Clinical Impression: Chronic back pain Qualifiers: Back pain location: low back pain Back pain laterality: unspecified Sciatica Qualifiers: Laterality: left Qualified Code(s): M54.32 - Sciatica, left side - Discharge Information Prescriptions: predniSONE [Prednisone] 20 mg PO DAILY #15 tablet Instructions: Sciatica Referrals: Stuart Barillas PA-C [Physician Steeping Press Operator] - - Assessment/Plan Assessment:: 1. acute sciatica 2. chronic low back pain Plan: 1. discharge home 2. prednisone 60mg PO QD x 5 days 3. hydrocodone 10/325 #5 si PO Q6 PRN pain 4. follow up in clinic on tuesday08/30/2017 for recheck 5. return to ER for worsening symptoms
[2017-08-29] MEDS ORDERED: methylPREDNISolone Sodium Succinate 125 MG/2 ML SDV IM ONE (00:02)
[2017-08-29] MEDS ORDERED: Acetaminophen/HYDROcodone 325-10 MG Tab PO PRN (00:02)
[2017-08-29] MEDS ORDERED: predniSONE 20 MG Tab ONE (00:12)
[2017-08-29] MEDS ORDERED: predniSONE 20 MG Tab PO SCH (08:00)
== END 2017-08-29 00:25 | disposition home or self-care (01) ==
LOC: KA.ED 23:15
DX: M54.42 Lumbago with sciatica, left side (principal); G89.29 Other chronic pain; F17.210 Nicotine dependence, cigarettes, uncomplicated; Z88.5 Allergy status to narcotic agent; Z79.899 Other long term (current) drug therapy
CPT/HCPCS: 96372; 99283; A9270; J2930

== ENCOUNTER 2017-08-30 22:25 | Emergency (ER) | payer MEDICAID ==
[2017-08-30 22:40] VITALS: BP 143/87
[2017-08-30] MEDS ORDERED: Ketorolac 30 MG/ML SDV IVPUSH ONE (22:52)
--- NOTE | 2017-08-30 22:59 | EDM.PDOC ---
ED HPI GENERAL MEDICAL PROBLEM - General Chief Complaint: Back Pain or Injury Stated Complaint: SCIATICA Time Seen by Provider: 08/30/17 22:35 Source of Information: Reports: Patient History Limitations: Reports: No Limitations - History of Present Illness INITIAL COMMENTS - FREE TEXT/NARRATIVE: 32 YO WF presents to ER with exacerbation of her chronic back pain. Pt was seen 2 days ago in ER for same and was given pain medication, steroids and muscle relaxers. Pt was seen by PCP today and had MRI scheduled. Pt has an appointment with pain management in 2 weeks. Pt reports she was doing fine until she attempted to push in the foot of a recliner and developed worsening of her back and left leg pain. Pt denies any weakness in the left leg but states she has parathesias regularly. Pt denies any numbness between her legs or "saddle sign" . Pt was able to transfer to bed from wheelchair. Duration: Chronic Location: Reports: Back Quality: Reports: Ache Severity: Severe Improves with: Reports: Rest Worsens with: Reports: Movement Associated Symptoms: Reports: No Other Symptoms - Related Data Allergies Allergy/AdvReac Type Severity Reaction Status Date / Time celecoxib [From Celebrex] Allergy Unknown Hives Verified 08/30/17 22:36 tramadol Allergy Hives Verified 08/30/17 22:36 Home Meds: Home Meds ALPRAZolam [Xanax] 0.5 mg PO BID PRN 03/23/15 [History] Ibuprofen 600 mg PO Q6H PRN 04/30/16 [History] Venlafaxine [Venlafaxine HCl ER] 150 mg PO DAILY 05/29/17 [History] Acetaminophen [Tylenol Extra Strength] 1,000 mg PO Q6HR PRN 06/13/17 [History] Clobetasol Propionate [Temovate] 1 gm TP BID 06/13/17 [History] Meclizine [Antivert] 12.5 mg PO Q6H PRN 06/13/17 [History] busPIRone [Buspar] 15 mg PO BID 06/13/17 [History] Ketorolac [Toradol] 10 mg PO Q6H PRN #30 tablet 06/15/17 [Rx] Baclofen 10 mg PO TID 08/13/17 [History] Gabapentin [Neurontin] 600 mg PO TID 08/28/17 [History] hydrOXYzine HCl [Atarax] 25 mg PO BID 08/28/17 [History] Hydrocodone/Acetaminophen [Hydrocodon-Acetaminophn 10-325] 0.5 tab PO Q6H PRN [History] predniSONE [Prednisone] 60 mg PO DAILY 08/30/17 [History] tiZANidine [Zanaflex] 4 mg PO TID PRN 08/30/17 [History] Past Medical History - Past Health History Medical/Surgical History: Denies Medical/Surgical History HEENT History: Reports: None Gastrointestinal History: Reports: None Genitourinary History: Reports: UTI, Recurrent 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 feels look like ringworm; pt states she has appt with dermatology in August. - Infectious Disease History Infectious Disease History: Reports: Hepatitis C, MRSA - Past Surgical History GI Surgical History: Reports: Appendectomy, Cholecystectomy Female Surgical History: Reports: Hysterectomy Neurological Surgical History: Reports: Lumbar Spine Musculoskeletal Surgical History: Reports: Other (See Below) Other Musculoskeletal Surgeries/Procedures:: Back surgery 06/20 Social & Family History - Family History Family Medical History: Noncontributory - Tobacco Use Smoking Status *Q: Current Every Day Smoker Years of Tobacco use: 44 Packs/Tins Daily: 1 Used Tobacco, but Quit: No Second Hand Smoke Exposure: Yes - Caffeine Use Caffeine Use: Reports: Coffee - Alcohol Use Days Per Week of Alcohol Use: 7 Number of Drinks Per Day: 2 Total Drinks Per Week: 14 - Recreational Drug Use Recreational Drug Use: No Drug Use in Last 12 Months: Yes Recreational Drug Type: Reports: Marijuana/Hashish Recreational Drug Use Frequency: Not Used In Over 6 Months - Living Situation & Occupation Living situation: Reports: Single ED ROS GENERAL - Review of Systems Review Of Systems: See Below Constitutional: Reports: No Symptoms HEENT: Reports: No Symptoms Respiratory: Reports: No Symptoms Cardiovascular: Reports: No Symptoms Endocrine: Reports: No Symptoms GI/Abdominal: Reports: No Symptoms : Reports: No Symptoms Musculoskeletal: Reports: Back Pain Skin: Reports: No Symptoms Neurological: Reports: Paresthesia Psychiatric: Reports: No Symptoms Hematologic/Lymphatic: Reports: No Symptoms Immunologic: Reports: No Symptoms ED EXAM,LOWER BACK PAIN/INJURY - Physical Exam Exam: See Below Exam Limited By: No Limitations General Appearance: Alert, WD/WN, No Apparent Distress Neck: Normal Inspection, Supple, Non-Tender, Full Range of Motion Respiratory/Chest: No Respiratory Distress, Lungs Clear, Normal Breath Sounds, No Accessory Muscle Use, Chest Non-Tender Cardiovascular: Normal Peripheral Pulses, Regular Rate, Rhythm, No Edema, No Gallop, No JVD, No Murmur, No Rub GI/Abdominal: Normal Bowel Sounds, Soft, Non-Tender, No Organomegaly, No Distention, No Abnormal Bruit, No Mass Back Exam: Muscle Spasm, Paraspinal Tenderness Extremities: Normal Inspection, Normal Range of Motion, Non-Tender, No Pedal Edema, Normal Capillary Refill Neurological: Alert, Normal Mood/Affect, Normal Dorsiflexion, CN II-XII Intact, Normal Plantar Flexion, Normal Gait, Normal Reflexes, No Motor/Sensory Deficits , Oriented x 3 Psychiatric: Normal Affect, Normal Mood Skin Exam: Warm, Dry, Intact, Normal Color, No Rash Lymphatic: No Adenopathy Course - Vital Signs Last Recorded V/S: Last Vital Signs Temp 37.7 C 08/30/17 22:39 Pulse 99 08/30/17 22:39 Resp 24 H 08/30/17 22:39 BP 143/87 H 08/30/17 22:39 Pulse Ox 97 08/30/17 22:39 - Orders/Labs/Meds Orders: Active Orders 24 hr Category Date Time Status Sodium Chloride 0.9% [Syrex Flush] Med 08/30/17 23:08 Active 5 ml FLUSH Q8HR PRN Saline Lock Insert [OM.PC] Routine Oth 08/30/17 23:08 Ordered Medication Orders Sodium Chloride (Syrex Flush) 5 ml FLUSH Q8HR PRN PRN Reason: Keep Vein Open Last Admin: 08/30/17 23:22 Dose: 5 ml Meds: Medications Generic Name Dose Route Start Last Admin Trade Name Freq PRN Reason Stop Dose Admin Sodium Chloride 5 ml 08/30/17 23:08 08/30/17 23:22 Syrex Flush FLUSH 5 ml Q8HR PRN Administration Keep Vein Open Discontinued Medications Generic Name Dose Route Start Last Admin Trade Name Narcisoq PRN Reason Stop Dose Admin Diazepam 5 mg 08/30/17 22:52 08/30/17 23:07 Valium IVPUSH 08/30/17 22:53 5 mg ONETIME ONE Administration Hydromorphone HCl 1 mg 08/30/17 23:14 08/30/17 23:20 Dilaudid IVPUSH 08/30/17 23:15 1 mg ONETIME ONE Administration Hydromorphone HCl Confirm 08/30/17 23:16 08/30/17 23:22 Dilaudid Administered 08/30/17 23:17 Not Given Dose 1 mg .ROUTE .STK-MED ONE Ketorolac Tromethamine 30 mg 08/30/17 22:52 08/30/17 23:03 Toradol IVPUSH 08/30/17 22:53 30 mg ONETIME ONE Administration Departure - Departure Time of Disposition: 23:42 Disposition: Home, Self-Care 01 Condition: Fair Clinical Impression: Chronic back pain Qualifiers: Back pain location: low back pain Back pain laterality: unspecified Sciatica Qualifiers: Laterality: left Qualified Code(s): M54.32 - Sciatica, left side - Discharge Information Instructions: Chronic Back Pain, Sciatica Referrals: Stuart Barillas PA-C [Primary Care Provider] - Forms: ED Department Discharge - My Orders Last 24 Hours: My Active Orders 08/30/17 23:08 Sodium Chloride 0.9% [Syrex Flush] 5 ml FLUSH Q8HR PRN Saline Lock Insert [OM.PC] Routine - Assessment/Plan Last 24 Hours: My Active Orders 08/30/17 23:08 Sodium Chloride 0.9% [Syrex Flush] 5 ml FLUSH Q8HR PRN Saline Lock Insert [OM.PC] Routine Assessment:: 1. acute sciatica 2. chronic back pain Plan: 1. MRI, CT lumbar spine 09/01/17 as scheduled 2. continue current pain medication 3. return to ER for worsening symptoms
[2017-08-30] MEDS: Sodium Chloride 0.9% 5 ML Syringe FLUSH PRN ×2 (23:10→23:22)
[2017-08-30] MEDS ORDERED: HYDROmorphone 1 MG/ML Syringe IVPUSH ONE (23:14)
[2017-08-30] MEDS ORDERED: HYDROmorphone 1 MG/ML Syringe ONE (23:16)
== END 2017-08-31 00:02 | disposition home or self-care (01) ==
LOC: KA.ED 22:25
DX: M54.42 Lumbago with sciatica, left side (principal); G89.29 Other chronic pain; Z88.8 Allergy status to other drugs, medicaments and biological substances; F17.210 Nicotine dependence, cigarettes, uncomplicated
CPT/HCPCS: 96374; 96375; 99283; J1170; J1885; J3360

== ENCOUNTER 2017-09-01 21:26 | Emergency (ER) | payer MEDICAID ==
[2017-09-01 21:33] VITALS: BP 133/88
--- NOTE | 2017-09-01 22:01 | EDM.PDOC ---
ED HPI GENERAL MEDICAL PROBLEM - General Chief Complaint: Back Pain or Injury Stated Complaint: L lower back Time Seen by Provider: 09/01/17 21:53 Source of Information: Reports: Patient History Limitations: Reports: No Limitations - History of Present Illness INITIAL COMMENTS - FREE TEXT/NARRATIVE: Patient is a 32-year-old female who presents to the emergency department this evening with a complaint of low back pain and radiation to the left lower extremity. Patient has a chronic history of low back pain and was seen this morning for an MRI and CT of lumbar spine. Unfortunately results are not available at this time. Patient denies chest pain, shortness of breath, abdominal pain, saddle anesthesia, bowel or urinary incontinence. Patient states that she was advised by Stuart the PA for [facility] to present to the emergency department for admission to the hospital. I discussed case with Aroldo Sheikh, nurse practitioner, who was on-call for [facility]. He declined admission for pain control and suggested toradol and morphine and have patient follow-up in clinic as scheduled in a.m. Onset: Gradual Duration: Chronic Location: Reports: Back Quality: Reports: Ache Severity: Moderate Improves with: Reports: None Worsens with: Reports: Movement Associated Symptoms: Reports: No Other Symptoms. 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) - Related Data Allergies Allergy/AdvReac Type Severity Reaction Status Date / Time celecoxib [From Celebrex] Allergy Unknown Hives Verified 09/01/17 21:28 tramadol Allergy Hives Verified 09/01/17 21:28 Home Meds: Home Meds ALPRAZolam [Xanax] 0.5 mg PO BID PRN 03/23/15 [History] Ibuprofen 600 mg PO Q6H PRN 04/30/16 [History] Venlafaxine [Venlafaxine HCl ER] 150 mg PO DAILY 05/29/17 [History] Acetaminophen [Tylenol Extra Strength] 1,000 mg PO Q6HR PRN 06/13/17 [History] Clobetasol Propionate [Temovate] 1 gm TP BID 06/13/17 [History] Meclizine [Antivert] 12.5 mg PO Q6H PRN 06/13/17 [History] busPIRone [Buspar] 15 mg PO BID 06/13/17 [History] Ketorolac [Toradol] 10 mg PO Q6H PRN #30 tablet 06/15/17 [Rx] Baclofen 10 mg PO TID 08/13/17 [History] Gabapentin [Neurontin] 600 mg PO TID 08/28/17 [History] hydrOXYzine HCl [Atarax] 25 mg PO BID 08/28/17 [History] Hydrocodone/Acetaminophen [Hydrocodon-Acetaminophn 10-325] 0.5 tab PO Q6H PRN [History] predniSONE [Prednisone] 60 mg PO DAILY 08/30/17 [History] tiZANidine [Zanaflex] 4 mg PO TID PRN 08/30/17 [History] Past Medical History - Past Health History Medical/Surgical History: Denies Medical/Surgical History HEENT History: Reports: None Other HEENT History: glasses Gastrointestinal History: Reports: None Genitourinary History: Reports: UTI, Recurrent 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 feels look like ringworm; pt states she has appt with dermatology in August. - Infectious Disease History Infectious Disease History: Reports: Hepatitis C, MRSA - Past Surgical History GI Surgical History: Reports: Appendectomy, Cholecystectomy Female Surgical History: Reports: Hysterectomy Neurological Surgical History: Reports: Lumbar Spine Musculoskeletal Surgical History: Reports: Other (See Below) Other Musculoskeletal Surgeries/Procedures:: Back surgery 06/20 Social & Family History - Family History Family Medical History: Noncontributory - Tobacco Use Smoking Status *Q: Current Every Day Smoker Years of Tobacco use: 44 Packs/Tins Daily: 1 Used Tobacco, but Quit: No Second Hand Smoke Exposure: Yes - Caffeine Use Caffeine Use: Reports: Coffee - Alcohol Use Days Per Week of Alcohol Use: 7 Number of Drinks Per Day: 2 Total Drinks Per Week: 14 - Recreational Drug Use Recreational Drug Use: Yes Drug Use in Last 12 Months: Yes Recreational Drug Type: Reports: Marijuana/Hashish Recreational Drug Use Frequency: Not Used In Over 6 Months - Living Situation & Occupation Living situation: Reports: Single ED ROS GENERAL - Review of Systems Review Of Systems: ROS reveals no pertinent complaints other than HPI. Constitutional: Reports: No Symptoms HEENT: Reports: No Symptoms Respiratory: Reports: No Symptoms Cardiovascular: Reports: No Symptoms Endocrine: Reports: No Symptoms GI/Abdominal: Reports: No Symptoms : Reports: No Symptoms Musculoskeletal: Reports: Back Pain Skin: Reports: No Symptoms Neurological: Reports: No Symptoms Psychiatric: Reports: No Symptoms Hematologic/Lymphatic: Reports: No Symptoms Immunologic: Reports: No Symptoms ED EXAM,LOWER BACK PAIN/INJURY - Physical Exam Exam: See Below Exam Limited By: No Limitations General Appearance: Alert, WD/WN, Mild Distress Throat/Mouth: Normal Inspection, Normal Oropharynx, No Airway Compromise Head: Atraumatic, Normocephalic Neck: Normal Inspection Respiratory/Chest: No Respiratory Distress, Lungs Clear Cardiovascular: Regular Rate, Rhythm, No Murmur GI/Abdominal: Normal Bowel Sounds, Soft, Non-Tender Back Exam: Paraspinal Tenderness (left with radicular pain extending down back of left leg to midcalf). No: CVA Tenderness (L), CVA Tenderness (R) Extremities: No Pedal Edema Neurological: Alert, Normal Mood/Affect, Normal Dorsiflexion, Normal Plantar Flexion Psychiatric: Anxious Skin Exam: Warm, Dry, Intact, Normal Color, No Rash Course - Vital Signs Last Recorded V/S: Last Vital Signs Temp 98.6 F 09/01/17 21:31 Pulse 98 09/01/17 21:31 Resp 20 09/01/17 21:31 BP 133/88 09/01/17 21:31 Pulse Ox 98 09/01/17 21:31 - Re-Assessments/Exams Free Text/Narrative Re-Assessment/Exam: 09/01/17 22:16 Patient afebrile, nontoxic appearing, vital signs stable. Patient denies abdominal pain, saddle anesthesia, bowel or urinary incontinence. Toradol and morphine given in ER. Aroldo Durhamriel refused admission for pain control. Patient will follow-up at [facility] as scheduled tomorrow. Departure - Departure Time of Disposition: 22:17 Disposition: Home, Self-Care 01 Condition: Fair Clinical Impression: Drug-seeking behavior Sciatica Qualifiers: Laterality: left Qualified Code(s): M54.32 - Sciatica, left side Chronic back pain Qualifiers: Back pain location: low back pain Back pain laterality: left Sciatica presence : with sciatica Sciatica laterality: sciatica of left side Qualified Code(s): M54.42 - Lumbago with sciatica, left side; G89.29 - Other chronic pain; G89.29 - Other chronic pain - Discharge Information Instructions: Chronic Back Pain, Back Pain, Adult, [id number], Sciatica, Easy -to-Read Referrals: Stuart Barillas PA-C [Primary Care Provider] - Additional Instructions: Follow-up at [facility] as scheduled in a.m. - Assessment/Plan Assessment:: Chronic back pain Plan: Follow-up at [facility] tomorrow as scheduled
[2017-09-01] MEDS ORDERED: Morphine 4 MG/ML Syringe IM ONE (22:05)
[2017-09-01] MEDS ORDERED: Ketorolac 60 MG/2 ML SDV IM ONE (22:05)
== END 2017-09-01 22:25 | disposition home or self-care (01) ==
LOC: KA.ED 21:26
DX: M54.42 Lumbago with sciatica, left side (principal); G89.29 Other chronic pain; Z76.5 Malingerer [conscious simulation]; F17.210 Nicotine dependence, cigarettes, uncomplicated; F41.0 Panic disorder [episodic paroxysmal anxiety]; Z79.899 Other long term (current) drug therapy; Z88.5 Allergy status to narcotic agent; Z88.8 Allergy status to other drugs, medicaments and biological substances
CPT/HCPCS: 96372; 99283; J1885; J2270

== ENCOUNTER 2017-09-04 18:38 | Emergency (ER) | payer MEDICAID ==
[2017-09-04 18:58] VITALS: BP 117/82
--- NOTE | 2017-09-04 19:02 | EDM.PDOC ---
ED HPI GENERAL MEDICAL PROBLEM - General Chief Complaint: Back Pain or Injury Stated Complaint: PAIN Time Seen by Provider: 09/04/17 18:40 Source of Information: Reports: Patient History Limitations: Reports: No Limitations - History of Present Illness INITIAL COMMENTS - FREE TEXT/NARRATIVE: PATIENT IS A 32-YEAR-OLD FEMALE WHO PRESENTS TO THE EMERGENCY DEPARTMENT THIS EVENING WITH A COMPLAINT OF LOW BACK PAIN. THIS IS A CHRONIC CONDITION AND PATIENT HAS BEEN IN THIS EMERGENCY DEPARTMENT 4 TIMES IN THE LAST 2 WEEKS. PATIENT UNDERWENT MRI AND CAT SCAN EVALUATION 4 DAYS AGO AND IT WAS FOUND TO BE NO ACUTE PROCESS. PATIENT STATES SHE IS HERE FOR EXPLANATION OF WHY SHE STILL HAS BACK PAIN, ALTHOUGH GRAPHICS STUDIES WERE CONSIDERED NEGATIVE. PATIENT DENIES RECENT TRAUMA, INSULT, FEVER, SADDLE ANESTHESIA, BOWEL OR URINARY INCONTINENCE, ABDOMINAL PAIN, OR DYSURIA. Onset: Gradual Duration: Chronic Location: Reports: Back Severity: Moderate Improves with: Reports: None Worsens with: Reports: Movement Context: Denies: Trauma Associated Symptoms: Reports: No Other Symptoms - Related Data Allergies Allergy/AdvReac Type Severity Reaction Status Date / Time celecoxib [From Celebrex] Allergy Unknown Hives Verified 09/01/17 21:28 tramadol Allergy Hives Verified 09/01/17 21:28 Home Meds: Home Meds ALPRAZolam [Xanax] 0.5 mg PO BID PRN 03/23/15 [History] Ibuprofen 600 mg PO Q6H PRN 04/30/16 [History] Venlafaxine [Venlafaxine HCl ER] 150 mg PO DAILY 05/29/17 [History] Acetaminophen [Tylenol Extra Strength] 1,000 mg PO Q6HR PRN 06/13/17 [History] Clobetasol Propionate [Temovate] 1 gm TP BID 06/13/17 [History] Meclizine [Antivert] 12.5 mg PO Q6H PRN 06/13/17 [History] busPIRone [Buspar] 15 mg PO BID 06/13/17 [History] Ketorolac [Toradol] 10 mg PO Q6H PRN #30 tablet 06/15/17 [Rx] Baclofen 10 mg PO TID 08/13/17 [History] Gabapentin [Neurontin] 600 mg PO TID 08/28/17 [History] hydrOXYzine HCl [Atarax] 25 mg PO BID 08/28/17 [History] Hydrocodone/Acetaminophen [Hydrocodon-Acetaminophn 10-325] 0.5 tab PO Q6H PRN [History] predniSONE [Prednisone] 60 mg PO DAILY 08/30/17 [History] tiZANidine [Zanaflex] 4 mg PO TID PRN 08/30/17 [History] Past Medical History - Past Health History Medical/Surgical History: Denies Medical/Surgical History HEENT History: Reports: None Other HEENT History: glasses Gastrointestinal History: Reports: None Genitourinary History: Reports: UTI, Recurrent 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 feels look like ringworm; pt states she has appt with dermatology in August. - Infectious Disease History Infectious Disease History: Reports: Hepatitis C, MRSA - Past Surgical History GI Surgical History: Reports: Appendectomy, Cholecystectomy Female Surgical History: Reports: Hysterectomy Neurological Surgical History: Reports: Lumbar Spine Musculoskeletal Surgical History: Reports: Other (See Below) Other Musculoskeletal Surgeries/Procedures:: Back surgery 06/20 Social & Family History - Family History Family Medical History: Noncontributory - Tobacco Use Smoking Status *Q: Current Every Day Smoker Years of Tobacco use: 44 Packs/Tins Daily: 1 Used Tobacco, but Quit: No Second Hand Smoke Exposure: Yes - Caffeine Use Caffeine Use: Reports: Coffee - Alcohol Use Days Per Week of Alcohol Use: 7 Number of Drinks Per Day: 2 Total Drinks Per Week: 14 - Recreational Drug Use Recreational Drug Use: Yes Drug Use in Last 12 Months: Yes Recreational Drug Type: Reports: Marijuana/Hashish Recreational Drug Use Frequency: Not Used In Over 6 Months - Living Situation & Occupation Living situation: Reports: Single ED ROS GENERAL - Review of Systems Review Of Systems: ROS reveals no pertinent complaints other than HPI. Constitutional: Reports: No Symptoms HEENT: Reports: No Symptoms Respiratory: Reports: No Symptoms Cardiovascular: Reports: No Symptoms Endocrine: Reports: No Symptoms GI/Abdominal: Reports: No Symptoms : Reports: No Symptoms Musculoskeletal: Reports: Back Pain Skin: Reports: No Symptoms Neurological: Reports: No Symptoms Psychiatric: Reports: No Symptoms Hematologic/Lymphatic: Reports: No Symptoms Immunologic: Reports: No Symptoms ED EXAM,LOWER BACK PAIN/INJURY - Physical Exam Exam: See Below Exam Limited By: No Limitations General Appearance: Alert, WD/WN, No Apparent Distress Throat/Mouth: Normal Inspection, Normal Oropharynx, No Airway Compromise Head: Atraumatic, Normocephalic Neck: Normal Inspection Respiratory/Chest: No Respiratory Distress, Lungs Clear Cardiovascular: Regular Rate, Rhythm GI/Abdominal: Normal Bowel Sounds, Soft, Non-Tender Back Exam: Decreased Range of Motion, Paraspinal Tenderness. No: Full Range of Motion, CVA Tenderness (L), CVA Tenderness (R), Vertebral Tenderness Extremities: Normal Inspection, No Pedal Edema Neurological: Alert, Normal Mood/Affect, Normal Dorsiflexion, Normal Plantar Flexion, Oriented x 3 Psychiatric: Normal Affect, Normal Mood Skin Exam: Warm, Dry, Intact, Normal Color, No Rash Course - Re-Assessments/Exams Free Text/Narrative Re-Assessment/Exam: 09/04/17 19:08 PATIENT AFEBRILE, NONTOXIC APPEARING. VITAL SIGNS STABLE. EXPLAINED IN DETAIL TO THE PATIENT THAT HER CONDITION COULD BE BETTER EVALUATED AND OUTCOME MAY BE IMPROVED IF SHE SEEN BY AN ORTHOPEDIC SURGEON, INSTEAD OF PRESENTING TO THE EMERGENCY DEPARTMENT. PATIENT SEEMS TO UNDERSTAND AND WILL FOLLOW-UP AT [facility] ON TUESDAY. Departure - Departure Time of Disposition: 19:10 Disposition: Home, Self-Care 01 Condition: Fair Clinical Impression: Drug-seeking behavior Chronic back pain Qualifiers: Back pain location: low back pain Back pain laterality: left Sciatica presence : with sciatica Sciatica laterality: sciatica of left side Qualified Code(s): M54.42 - Lumbago with sciatica, left side - Discharge Information Instructions: Chronic Back Pain, Back Pain, Adult, [id number], Back Injury Prevention, [id number] Referrals: Stuart Barillas PA-C [Primary Care Provider] - - Assessment/Plan Assessment:: CHRONIC LOW BACK PAIN Plan: FOLLOW-UP WITH PCP SCHEDULED
== END 2017-09-04 19:00 | disposition home or self-care (01) ==
LOC: KA.ED 18:38
DX: M54.42 Lumbago with sciatica, left side (principal); Z76.5 Malingerer [conscious simulation]; F41.0 Panic disorder [episodic paroxysmal anxiety]; F32.9 Major depressive disorder, single episode, unspecified; F17.210 Nicotine dependence, cigarettes, uncomplicated; Z79.899 Other long term (current) drug therapy; Z88.5 Allergy status to narcotic agent; Z88.8 Allergy status to other drugs, medicaments and biological substances
CPT/HCPCS: 99283

== ENCOUNTER 2017-10-24 07:05 | Day surgery (SDC) | payer MEDICAID ==
[~2017-10-24 07:05] MED LIST: Sodium Chloride 0.9% 5 ML Syringe FLUSH PRN
[2017-10-24] MEDS ORDERED: Glycopyrrolate 0.2 MG/ML 5 ML MDV IV ONE (07:06)
[2017-10-24] MEDS ORDERED: Propofol 200 MG/20 ML SDV IV ONE (07:06)
[2017-10-24] MEDS ORDERED: Propofol 200 MG/20 ML SDV ONE (07:20)
[2017-10-24] MEDS: Lactated Ringers 1,000 ML IV SCH (07:35)
--- NOTE | 2017-10-24 09:13 | PCM.PRNOTE ---
- Free Text/Narrative Note: PROCEDURE PERFORMED: Esophagogastroduodenoscopy with biopsy PRE-PROCEDURE DIAGNOSIS/INDICATION FOR PROCEDURE: Persistent epigastric pain and dyspepsia despite PPI use. CONSENT: Informed consent was obtained prior to the procedure after discussion of the risks (including pain, bleeding, infection, perforation, adverse reaction to anesthesia, cardiovascular event), benefits and alternatives and expected outcomes were discussed with the patient. Verbal consent given and consent form signed. PROCEDURAL PAUSE: Completed SEDATION: Per anesthesia DESCRIPTION OF PROCEDURE: Patient was brought back to the operating room and placed in a left lateral decubitus position. Bite block placed. After adequate sedation and anesthetic was administered, endoscope was inserted into the patient's mouth and was passed easily through the esophagus and stomach into the duodenum without difficulty. Examined duodenum normal appearing. Pylorus and lower portion of stomach with mild gastritis of which biopsies obtained, including those for H. pylori testing. Remainder of stomach, including viewing in retroflexion, normal appearing. No hiatal hernia was present. The gastroesophageal junction at 40 cm from the incisors. Esophagus normal appearing. The scope was removed without difficulty. Patient tolerated the procedure well. No complications. IMPRESSION: Esophagogastroduodenoscopy performed revealing mild distal stomach gastritis, pathology now pending. PLAN: Will contact the patient when pathology results received. Discussed appropriate administration of PPI at least 30 minutes prior to morning meal and other conservative measures for reflux control.
[2017-10-24 09:17] VITALS: BP 130/83
== END 2017-10-24 09:05 | disposition home or self-care (01) ==
LOC: KA.SDS 07:05
PROVIDERS: ATTEND Family Medicine
DX: K29.70 Gastritis, unspecified, without bleeding (principal); K21.9 Gastro-esophageal reflux disease without esophagitis; E66.01 Morbid (severe) obesity due to excess calories; F41.9 Anxiety disorder, unspecified; F33.0 Major depressive disorder, recurrent, mild; Z79.899 Other long term (current) drug therapy; Z88.1 Allergy status to other antibiotic agents; Z88.8 Allergy status to other drugs, medicaments and biological substances; Z68.41 Body mass index [BMI] 40.0-44.9, adult
CPT/HCPCS: J2704; J3490; J7120

== ENCOUNTER 2017-11-01 19:25 | Emergency (ER) | payer MEDICAID ==
[2017-11-01] MEDS ORDERED: Sodium Chloride 0.9% 5 ML Syringe FLUSH PRN (19:37)
--- NOTE | 2017-11-01 19:46 | EDM.PDOC ---
ED HPI GENERAL MEDICAL PROBLEM - General Chief Complaint: Fever Stated Complaint: BLADDER INFECTION Time Seen by Provider: 11/01/17 19:36 Source of Information: Reports: Patient History Limitations: Reports: No Limitations - History of Present Illness INITIAL COMMENTS - FREE TEXT/NARRATIVE: Patient is a 32-year-old female who presents to the emergency department this evening with a complaint of abdominal pain and dysuria. Patient states that she was seen by [facility] provider today and given antibiotics for UTI. Patient was unable to fill antibiotic prescription today. Patient states now that she has some suprapubic discomfort, dysuria, fever, and dark urine. Patient denies nausea, vomiting, diarrhea, flank pain, or vaginal discharge. Onset: Gradual Duration: Day(s): Location: Reports: Abdomen Quality: Reports: Ache Severity: Mild Improves with: Reports: None Worsens with: Reports: Other (Urination) Associated Symptoms: Reports: Fever/Chills Treatments ADDICTION THERAPIST: Reports: Acetaminophen - Related Data Allergies Allergy/AdvReac Type Severity Reaction Status Date / Time celecoxib [From Celebrex] Allergy Unknown Hives Verified 11/01/17 19:35 tramadol Allergy Hives Verified 11/01/17 19:35 Home Meds: Home Meds ALPRAZolam [Xanax] 0.5 mg PO BID PRN 03/23/15 [History] Ibuprofen 800 mg PO Q6H PRN 04/30/16 [History] Venlafaxine [Venlafaxine HCl ER] 150 mg PO DAILY 05/29/17 [History] Acetaminophen [Tylenol Extra Strength] 1,000 mg PO Q6HR PRN 06/13/17 [History] Clobetasol Propionate [Temovate] 1 gm TP BID 06/13/17 [History] Meclizine [Antivert] 12.5 mg PO Q6H PRN 06/13/17 [History] busPIRone [Buspar] 15 mg PO BID 06/13/17 [History] Ketorolac [Toradol] 10 mg PO Q6H PRN #30 tablet 06/15/17 [Rx] Baclofen 10 mg PO TID 08/13/17 [History] Gabapentin [Neurontin] 600 mg PO TID 08/28/17 [History] hydrOXYzine HCl [Atarax] 25 mg PO BID 08/28/17 [History] tiZANidine [Zanaflex] 4 mg PO TID PRN 08/30/17 [History] Past Medical History - Past Health History Medical/Surgical History: Denies Medical/Surgical History HEENT History: Reports: None Other HEENT History: glasses Gastrointestinal History: Reports: None Genitourinary History: Reports: UTI, Recurrent 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 feels look like ringworm; pt states she has appt with dermatology in August. - Infectious Disease History Infectious Disease History: Reports: Hepatitis C - Past Surgical History GI Surgical History: Reports: Appendectomy, Cholecystectomy, Colonoscopy Female Surgical History: Reports: Hysterectomy Neurological Surgical History: Reports: Lumbar Spine Musculoskeletal Surgical History: Reports: Other (See Below) Other Musculoskeletal Surgeries/Procedures:: Back surgery 06/20; knee surgery Social & Family History - Family History Family Medical History: Noncontributory - Tobacco Use Smoking Status *Q: Current Every Day Smoker Years of Tobacco use: 17 Packs/Tins Daily: 0.5 Used Tobacco, but Quit: No Second Hand Smoke Exposure: Yes - Caffeine Use Caffeine Use: Reports: Coffee, Energy Drinks, Soda, Tea - Alcohol Use Days Per Week of Alcohol Use: 7 Number of Drinks Per Day: 2 Total Drinks Per Week: 14 - Recreational Drug Use Recreational Drug Use: No Drug Use in Last 12 Months: Yes Recreational Drug Type: Reports: Marijuana/Hashish Recreational Drug Use Frequency: Not Used In Over 6 Months - Living Situation & Occupation Living situation: Reports: Single ED ROS GENERAL - Review of Systems Review Of Systems: ROS reveals no pertinent complaints other than HPI. Constitutional: Reports: Fever, Chills HEENT: Reports: No Symptoms Respiratory: Reports: No Symptoms Cardiovascular: Reports: No Symptoms Endocrine: Reports: No Symptoms GI/Abdominal: Reports: Abdominal Pain : Reports: Dysuria, Frequency Musculoskeletal: Reports: No Symptoms Skin: Reports: No Symptoms Neurological: Reports: No Symptoms Psychiatric: Reports: No Symptoms Hematologic/Lymphatic: Reports: No Symptoms Immunologic: Reports: No Symptoms ED EXAM, RENAL/ - Physical Exam Exam: See Below Exam Limited By: No Limitations General Appearance: Alert, WD/WN, Mild Distress Throat/Mouth: Normal Inspection, Normal Oropharynx, No Airway Compromise Head: Atraumatic, Normocephalic Neck: Normal Inspection Respiratory/Chest: No Respiratory Distress, Lungs Clear, Normal Breath Sounds, No Accessory Muscle Use, Chest Non-Tender Cardiovascular: Regular Rate, Rhythm, No Murmur GI/Abdominal: Normal Bowel Sounds, Soft, Tender (Minimally tender suprapubic.) Back Exam: Normal Inspection. No: CVA Tenderness (L), CVA Tenderness (R) Extremities: Normal Inspection Neurological: Alert, Oriented, Normal Cognition Psychiatric: Normal Affect, Normal Mood Skin Exam: Warm, Dry, Intact, Normal Color, No Rash Course - Vital Signs Last Recorded V/S: Last Vital Signs Temp 101.0 F H 11/01/17 19:30 Pulse 95 11/01/17 19:30 Resp 20 11/01/17 19:30 BP 126/61 11/01/17 19:30 Pulse Ox 97 11/01/17 19:30 - Orders/Labs/Meds Orders: Active Orders 24 hr Category Date Time Status Peripheral IV Care [RC] . DIRECTED Care 11/01/17 19:37 Ordered Sodium Chloride 0.9% @ 999 MLS/HR (1000ml) Med 11/01/17 19:37 Ordered Sodium Chloride 0.9% [Normal Saline] 1,000 ml IV .BOLUS Sodium Chloride 0.9% [Syrex Flush] Med 11/01/17 19:37 Ordered 5 ml FLUSH Q8HR PRN Peripheral IV Insertion Adult [OM.PC] Routine Oth 11/01/17 19:37 Ordered Medication Orders Sodium Chloride (Normal Saline) 1,000 mls @ 999 mls/hr IV .BOLUS ONE Stop: 11/01/17 20:37 Last Admin: 11/01/17 20:10 Dose: 999 mls/hr Sodium Chloride (Syrex Flush) 5 ml FLUSH Q8HR PRN PRN Reason: Keep Vein Open Labs: Laboratory Tests 11/01/17 11/01/17 11/01/17 Range/Units 19:35 19:45 19:45 WBC 14.5 H (5.0-10.0) 10^3/uL RBC 4.42 (3.80-5.50) 10^6/uL Hgb 13.3 D (12.0-16.0) g/dL Hct 39.3 (37.0-47.0) % MCV 88.9 (82.0-92.0) fL MCH 30.0 (27.0-31.0) pg MCHC 33.8 (32.0-36.0) g/dL RDW 12.4 (11.5-14.5) % Plt Count 311 H (150-300) 10^3/uL MPV 7.3 L (7.4-10.4) fL Neut % (Auto) 83.0 H (50.0-70.0) % Lymph % (Auto) 10.8 L (20.0-40.0) % [place] % (Auto) 4.2 (2.0-8.0) % Eos % (Auto) 1.1 (1.0-3.0) % Baso % (Auto) 0.9 (0.0-1.0) % Neut # (Auto) 12.0 H (2.5-7.0) 10^3/uL Lymph # (Auto) 1.6 (1.0-4.0) 10^3/uL [place] # (Auto) 0.6 (0.1-0.8) 10^3/uL Eos # (Auto) 0.2 (0.1-0.3) 10^3/uL Baso # (Auto) 0.1 (0.0-0.1) 10^3/uL Sodium 139 (136-145) mmol/L Potassium 3.8 (3.3-5.3) mmol/L Chloride 101 (98-115) mmol/L Carbon Dioxide 26.0 (21.0-32.0) mmol/L BUN 11 (6-25) mg/dL Creatinine 0.71 (0.51-1.17) mg/dL Est Cr Clr Drug Dosing 99.14 mL/min Estimated GFR (MDRD) > 60 mL/min Glucose 108 (70-110) mg/dL Calcium 9.4 (8.7-10.3) mg/dL Total Bilirubin 0.8 (0.2-1.0) mg/dL AST 18 (15-37) U/L ALT 34 (12-78) U/L Alkaline Phosphatase 68 (46-116) IU/L Total Protein 7.9 (6.4-8.2) g/dL Albumin 3.91 (3.00-4.80) g/dL Specimen Type Urincc Urine Color Yellow (YELLOW) Urine Appearance Slightly cloudy H (CLEAR) Urine pH 8.0 (5.0-9.0) Ur Specific Reading 1.020 (1.005-1.030) Urine Protein 30 H (NEGATIVE) mg/dL Urine Glucose (UA) Negative (NEGATIVE) mg/dL Urine Ketones Negative (NEGATIVE) mg/dL Urine Occult Blood Moderate H (NEGATIVE) Urine Nitrite Negative (NEGATIVE) Urine Bilirubin Negative (NEGATIVE) Urine Urobilinogen 0.2 (0.2-1.0) E.U./dL Ur Leukocyte Esterase Moderate H (NEGATIVE) Urine RBC 40-50 H /HPF Urine WBC >100 H /HPF Ur Epithelial Cells Few /LPF Urine Bacteria Moderate H (NONE TO FEW) /HPF Meds: Medications Generic Name Dose Route Start Last Admin Trade Name Freq PRN Reason Stop Dose Admin Sodium Chloride 1,000 mls @ 999 mls/hr 11/01/17 19:37 11/01/17 20:10 Normal Saline IV 11/01/17 20:37 999 mls/hr .BOLUS ONE Administration Sodium Chloride 5 ml 11/01/17 19:37 Syrex Flush FLUSH Q8HR PRN Keep Vein Open Discontinued Medications Generic Name Dose Route Start Last Admin Trade Name Freq PRN Reason Stop Dose Admin Ceftriaxone Sodium 1 gm 11/01/17 20:03 11/01/17 20:27 Rocephin IVPUSH 11/01/17 20:04 1 gm ONETIME ONE Administration Ketorolac Tromethamine 30 mg 11/01/17 19:37 11/01/17 20:10 Toradol IVPUSH 11/01/17 19:38 30 mg ONETIME ONE Administration - Re-Assessments/Exams Free Text/Narrative Re-Assessment/Exam: 11/01/17 20:33 Patient nontoxic appearing, vital signs stable, discomfort relieved. Patient given 1 g Rocephin IV, and 1 L normal saline. Patient will fill prescription tomorrow and follow-up at [facility] in 2-3 days. Departure - Departure Time of Disposition: 20:35 Disposition: Home, Self-Care 01 Condition: Good Clinical Impression: UTI, Urinary tract infectious disease - Discharge Information Instructions: Urinary Tract Infection, Adult, [id number], Fever, Adult, Easy- to-Read Referrals: Stuart Barillas PA-C [Primary Care Provider] - Forms: ED Department Discharge Additional Instructions: Follow-up at [facility] in 2-3 days, return to the emergency department sooner if symptoms continue or worsen. - My Orders Last 24 Hours: My Active Orders 11/01/17 19:37 Peripheral IV Care [RC] . DIRECTED Sodium Chloride 0.9% @ 999 MLS/HR (1000ml) Sodium Chloride 0.9% [Normal Saline] 1,000 ml IV .BOLUS Sodium Chloride 0.9% [Syrex Flush] 5 ml FLUSH Q8HR PRN Peripheral IV Insertion Adult [OM.PC] Routine - Assessment/Plan Last 24 Hours: My Active Orders 11/01/17 19:37 Peripheral IV Care [RC] . DIRECTED Sodium Chloride 0.9% @ 999 MLS/HR (1000ml) Sodium Chloride 0.9% [Normal Saline] 1,000 ml IV .BOLUS Sodium Chloride 0.9% [Syrex Flush] 5 ml FLUSH Q8HR PRN Peripheral IV Insertion Adult [OM.PC] Routine Assessment:: Urinary tract infection Plan: Follow-up at [facility] in 1-2 days
[2017-11-01 20:09] LABS: CHLORIDE,CL 101 mmol/L (98-115); SODIUM,NA 139 mmol/L (136-145)
[2017-11-01] MEDS: Ketorolac 30 MG/ML SDV IVPUSH ONE (20:10)
[2017-11-01] MEDS: Sodium Chloride 0.9% 1,000 ML IV ONE (20:10)
[2017-11-01] MEDS: cefTRIAXone 1 GM Vial IVPUSH ONE (20:27)
[2017-11-01] MEDS: Acetaminophen/HYDROcodone 325-5 MG Tab PO ONE (20:40)
[2017-11-01 23:13] VITALS: BP 116/60
== END 2017-11-01 21:00 | disposition home or self-care (01) ==
LOC: KA.ED 19:25
DX: N39.0 Urinary tract infection, site not specified (principal); F17.210 Nicotine dependence, cigarettes, uncomplicated; Z88.5 Allergy status to narcotic agent; Z88.8 Allergy status to other drugs, medicaments and biological substances; Z79.899 Other long term (current) drug therapy; Z79.01 Long term (current) use of anticoagulants
CPT/HCPCS: 36415; 80053; 81001; 85025; 96361; 96374; 96375; 99283; A9270-GY; J0696; J1885; J7030

== ENCOUNTER 2017-11-03 15:55 | Inpatient (IN) | payer MEDICAID ==
[2017-11-03] MEDS ORDERED: Ondansetron 4 MG/2 ML SDV IVPUSH PRN (16:23)
[2017-11-03] MEDS ORDERED: cefTRIAXone 1 GM in Sodium Chloride 0.9% 50 ML IV SCH (16:30)
[2017-11-03] MEDS: Ketorolac 30 MG/ML SDV IVPUSH PRN ×2 (16:42→23:04)
[2017-11-03] MEDS: Acetaminophen 500 MG Tab PO SCH ×2 (16:43→22:01)
[2017-11-03] MEDS: cefTRIAXone 1 GM Vial IV SCH (16:44)
[2017-11-03] MEDS: Famotidine 20 MG Tab PO SCH (16:44)
[2017-11-03] MEDS ORDERED: Sodium Chloride 0.9% 50 ML IV SCH (16:45)
[2017-11-03] MEDS ORDERED: Sodium Chloride 0.9% 5 ML Syringe FLUSH PRN (16:55)
[2017-11-03] MEDS: Dextrose 5%-0.45% NaCl 1,000 ML IV SCH (17:20)
[2017-11-03] MEDS ORDERED: Acetaminophen 500 MG Tab PO PRN (17:48)
[2017-11-03] MEDS: Iopamidol 612 MG/ML 75 ML Bottle IV ONE ×2 (18:05→19:21)
[2017-11-03] MEDS ORDERED: Diclofenac Sodium 75 MG Tab.EC PO PRN (19:40)
[2017-11-03] MEDS ORDERED: Polyethylene Glycol 3350 Powder 17 GM Packet PO PRN (19:40)
[2017-11-03] MEDS ORDERED: Lidocaine 5% 700 MG Patch TOP PRN (19:40)
[2017-11-03] MEDS ORDERED: metroNIDAZOLE/Normal Saline 500 MG in Premix Bag 1 BAG IV SCH (20:00)
[2017-11-03] MEDS: hydrOXYzine HCl 25 MG Tab PO SCH (20:41)
[2017-11-03] MEDS: Baclofen 10 MG Tab PO SCH (20:41)
[2017-11-03] MEDS: busPIRone 5 MG Tab PO SCH (20:41)
[2017-11-03] MEDS: Gabapentin 300 MG Cap PO SCH (20:42)
[2017-11-03] MEDS: ALPRAZolam 0.25 MG Tab PO PRN (20:42)
[2017-11-03] MEDS ORDERED: Ondansetron 4 MG Tab.DIS PO PRN (21:00)
[2017-11-03] MEDS: metroNIDAZOLE/Normal Saline 500 MG in Premix Bag 1 BAG IV SCH (22:02)
[2017-11-04] MEDS: metroNIDAZOLE/Normal Saline 500 MG in Premix Bag 1 BAG IV SCH ×3 (05:20→21:58)
[2017-11-04] MEDS: Dextrose 5%-0.45% NaCl 1,000 ML IV SCH ×2 (05:20→18:50)
[2017-11-04] MEDS: Acetaminophen 500 MG Tab PO SCH ×4 (05:24→22:03)
[2017-11-04 08:05] LABS: CHLORIDE,CL 104 mmol/L (98-115); SODIUM,NA 140 mmol/L (136-145)
[2017-11-04] MEDS ORDERED: Phenazopyridine 100 MG Tab PO PRN (09:00)
[2017-11-04] MEDS: Gabapentin 300 MG Cap PO SCH ×3 (09:36→21:09)
[2017-11-04] MEDS: Simethicone 80 MG Tab.Chew PO SCH ×2 (09:36→17:20)
[2017-11-04] MEDS: hydrOXYzine HCl 25 MG Tab PO SCH ×2 (09:36→21:08)
[2017-11-04] MEDS: busPIRone 10 MG Tab PO SCH ×2 (09:36→21:08)
[2017-11-04] MEDS: Famotidine 20 MG Tab PO SCH ×2 (09:36→17:21)
[2017-11-04] MEDS: Venlafaxine 150 MG Cap.ER PO SCH (09:36)
[2017-11-04] MEDS: Pantoprazole 40 MG Tab.CR PO SCH (09:36)
[2017-11-04] MEDS: Baclofen 10 MG Tab PO SCH ×3 (09:37→21:09)
[2017-11-04] MEDS: busPIRone 5 MG Tab PO SCH (09:39)
[2017-11-04] MEDS: Ketorolac 30 MG/ML SDV IVPUSH PRN ×2 (10:40→18:54)
--- NOTE | 2017-11-04 11:16 | PN ---
11/04/2017 PATIENT NAME: DEN AMBROSE CHIEF COMPLAINT: Overall does feel better. Does have some breakthrough abdominal and pelvic pain along with some mild right CVA tenderness. HISTORY: 32-year-old, obese female, failed outpatient clinical treatment for suspected acute pyelonephritis/UTI. She has been having continued low back pain, abdominal pain with diagnosis of pyelonephritis. However, abdominal CT upon admission does not show any evidence of any acute process. She had been running fevers up to 103. She had been seen in the clinic approximately three times Tuesday, Tuesday, and prior to admission and again in the emergency department due to elevated temperatures, chills, right CVA tenderness with acute lower abdominal pain. UA was obtained. Positive UTI. She had been on Cipro 500 mg b.i.d., however, she had not filled this in timely manner and she was also given some Pyridium, taking ibuprofen and some limited hydrocodone. However, due to failing outpatient treatment, ongoing fevers and worsening pain, she was admitted to the hospital for ongoing treatment. The patient does complain of painful intercourse. She is unsure if she has any STIs. Hospital course so far, doing fairly well. She still has some abdominal pain, mild right CVA tenderness. Her fevers now are below threshold. She did have some hypotension early on admission, however asymptomatic. Blood pressure is 107/76, temperature 98.9, heart rate 70, O2 sats are normal on room air. Physical Exam: Lungs are clear to auscultation. CVA tenderness on her right side. CV: S1, S2. Normal rate and rhythm. ABD: hypoactive bowel tones. No abdominal distention. She does have some pain upon palpation of her suprapubic area and her left side. Vaginal exam: the patient has significant adnexal tenderness, left side. Mild adnexal tenderness on her right, side. No cervix noted. Standby with Dinah was provided. LABS: White count 10.5, neutrophilia 75%. Sodium, potassium, BUN, creatinine, glucose, AST, ALT, total bilirubin, calcium, all normal. Urine culture pending. Intake 2242, output 1230. IMPRESSION/PLAN: 1. Suspect acute pyelonephritis, seems to be improving on ceftriaxone. Wait for definitive urine culture. White count responding. No longer febrile. 2. Pelvic inflammatory disease, highly suspected based off physical examination and history. Continue with ceftriaxone. We will add dicloxacillin. Discontinue metronidazole. 3. R/O STI; GC/Trich collected. OVERALL PLAN: The patient will continue inpatient stay, IV antibiotics, IV fluids for pain. We will add oxycodone for limited basis for breakthrough pain. She is also on nonsteroidals of ketorolac. We will monitor her inflammatory markers. Cultures pending for definitive therapy. However, the patient appears to be responding to clinical treatment. /[id number]/MODL MTDD
[2017-11-04] MEDS ORDERED: Diclofenac Sodium 50 MG Tab.EC PO PRN (12:30)
[2017-11-04] MEDS: oxyCODONE 5 MG Tab PO PRN ×2 (14:47→22:03)
[2017-11-04] MEDS: cefTRIAXone 1 GM Vial IV SCH (17:20)
[2017-11-04] MEDS: ALPRAZolam 0.25 MG Tab PO PRN (21:10)
[2017-11-05] MEDS: Ketorolac 30 MG/ML SDV IVPUSH PRN (03:53)
[2017-11-05] MEDS: metroNIDAZOLE/Normal Saline 500 MG in Premix Bag 1 BAG IV SCH (06:20)
[2017-11-05] MEDS: Acetaminophen 500 MG Tab PO SCH (06:22)
[2017-11-05] MEDS: Dextrose 5%-0.45% NaCl 1,000 ML IV SCH (06:27)
[2017-11-05 06:35] VITALS: BP 91/59
[2017-11-05] MEDS: Famotidine 20 MG Tab PO SCH (07:46)
[2017-11-05] MEDS: Simethicone 80 MG Tab.Chew PO SCH (07:46)
[2017-11-05] MEDS: Gabapentin 300 MG Cap PO SCH (08:47)
[2017-11-05] MEDS: Baclofen 10 MG Tab PO SCH (08:47)
[2017-11-05] MEDS: Venlafaxine 150 MG Cap.ER PO SCH (08:47)
[2017-11-05] MEDS: hydrOXYzine HCl 25 MG Tab PO SCH (08:48)
[2017-11-05] MEDS: busPIRone 10 MG Tab PO SCH (08:48)
[2017-11-05] MEDS: Pantoprazole 40 MG Tab.CR PO SCH (08:49)
--- NOTE | 2017-11-07 08:37 | DISCH ---
SUBJECTIVE: The patient states that she is still having some pelvic pain. She does not have any low back pain. She denies any fever or chills. The patient was admitted few days ago with pyelonephritis. She is also having some pelvic pain. The patient really wants to go home today. She states that she would rather be at home with her family and her kids instead being in the hospital. She says she will take some pain pills and antibiotics at home, and she will be fine. She says that she will try to drink plenty of liquids at home. She denies any burning with urination or nausea. LABORATORY DATA: VITAL SIGNS: The patient's vital signs today, temperature is 97.3, pulse is 63, blood pressure is 117/85, respiratory rate is 18, and oxygen saturation on room air is 98%. GENERAL: This is a young white female in no acute distress. ABDOMEN: Soft, nontender, and nondistended. The patient is very tender with palpation to lower pelvic area with deep palpation. LUNGS: Lung sounds are clear throughout lung [place]. HEART: Heart tones are regular rate and rhythm. No murmurs identified. LABORATORY DATA: The patient's lab work that was obtained this morning. CBC shows white count within normal range at 9.5, hemoglobin slightly low 11.9. Chemistry panel from yesterday was unremarkable. IMPRESSION AND PLAN: 1. Acute pyelonephritis. Plan: I am going to send the patient home on Cipro 500 mg twice a day for seven days for pain management. I am going to send the patient home with hydrocodone 5/325, when sent home with six tablets, she can take one tablet every 6 hours as needed for pain. Drink plenty of fluids. 2. Possible pelvic inflammatory disease. This is highly suspected by pelvic exam that the patient had earlier. I am going to send the patient on Flagyl 500 mg twice a day along with doxycycline 100 mg twice a day. Overall plan; we will let the patient go home. I am going to give her six hydrocodone as needed for pain. She will drink plenty of fluids. I am going to keep her on triple antibiotic therapy for possible pelvic inflammatory disease along with pyelonephritis. She will be taking doxycycline 100 mg twice a day along with Flagyl 500 mg twice a day along with Cipro 500 mg twice a day. I am going to send her home with some Toradol so that she can alternate with the hydrocodone as needed for pain. She can take 10 mg of Toradol every 6 hours as needed for pain. The patient will follow up in clinic on Tuesday with . /[id number]/MODL
== END 2017-11-05 09:50 | disposition home or self-care (01) | DRG 690 ==
LOC: KA.MS 15:55
PROVIDERS: ADMIT Physician Assistant Medical; ATTEND Family Medicine
DX: N10 Acute pyelonephritis (principal); N73.9 Female pelvic inflammatory disease, unspecified; Z79.899 Other long term (current) drug therapy; Z88.8 Allergy status to other drugs, medicaments and biological substances
CPT/HCPCS: 36415; 74177; 80053; 85025; 85651; 87040; A9270-GY; J0696; J1885; J2405; J7042; J7050; Q9967

== ENCOUNTER 2018-01-02 17:10 | Emergency (ER) | payer MEDICAID ==
[2018-01-02 17:32] VITALS: BP 121/80
[2018-01-02] MEDS ORDERED: Ketorolac 60 MG/2 ML SDV IM ONE (18:02)
[2018-01-02] MEDS ORDERED: methylPREDNISolone Sodium Succinate 125 MG/2 ML SDV IM ONE (18:02)
--- NOTE | 2018-01-02 18:02 | EDM.PDOC ---
ED HPI GENERAL MEDICAL PROBLEM - General Chief Complaint: General Stated Complaint: Chronic back pain Time Seen by Provider: 01/02/18 17:55 Source of Information: Reports: Patient History Limitations: Reports: No Limitations - History of Present Illness INITIAL COMMENTS - FREE TEXT/NARRATIVE: 32 YO WF with chronic low back pain who presents to ER with exacerbation of low back pain after intercourse 3 days ago. Pt attempted to go to [facility] but it was closed prompting her to come to ER for evaluation. Pt has had recent MRI lumbar spine and CT lumbar spine (08/2017) which showed no acute process. Pt has been encouraged to follow up with pain management/ortho spine and/or neurosurgery in [place] for further evaluation and treatment. Pt states she is too busy to follow up with specialists. Pt has an appointment in clinic tomorrow. Pt denies any bowel or bladder incontinence, no saddle parathesias, no lower extremity weakness or any recent trauma. 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: Acetaminophen, Cold Therapy, NSAIDS, Other Medication(s ), Other (see below) Other Treatments THERMAL SPRAY OPERATOR: tens unit Back Pain Score (Numeric/FACES): 8 - Related Data Allergies Allergy/AdvReac Type Severity Reaction Status Date / Time celecoxib [From Celebrex] Allergy Unknown Hives Verified 01/02/18 17:20 tramadol Allergy Hives Verified 01/02/18 17:20 Home Meds: Home Meds ALPRAZolam [Xanax] 0.5 mg PO BID PRN 03/23/15 [History] Ibuprofen 1,600 mg PO Q6H PRN 04/30/16 [History] Venlafaxine [Venlafaxine HCl ER] 150 mg PO DAILY 05/29/17 [History] Acetaminophen [Tylenol Extra Strength] 1,000 mg PO Q6HR PRN 06/13/17 [History] Meclizine [Antivert] 12.5 mg PO Q6H PRN 06/13/17 [History] busPIRone [Buspar] 20 mg PO BID 06/13/17 [History] Baclofen 10 mg PO TID 08/13/17 [History] Gabapentin [Neurontin] 1,200 mg PO BID 08/28/17 [History] tiZANidine [Zanaflex] 4 mg PO TID PRN 08/30/17 [History] Lidocaine 5% [Lidoderm 5%] 1 patch TOP DAILY PRN 11/03/17 [History] Ondansetron 4 mg PO TID PRN 11/03/17 [History] Pantoprazole Sodium [Protonix] 40 mg PO DAILY 11/03/17 [History] Polyethylene Glycol 3350 [MiraLAX] 17 gm PO DAILY PRN 11/03/17 [History] Prazosin [Minpress] 1 mg PO BEDTIME 11/03/17 [History] Simethicone 125 mg PO BIDAC 11/03/17 [History] Clobetasol Propionate [Temovate Cream] 1 applic TOP BID PRN 11/04/17 [History] Ketorolac [Toradol] 10 mg PO Q6H PRN #10 vial 11/05/17 [Rx] Prednisone [IJD: predniSONE] 20 mg PO WITHBREAKFAST #15 tab 01/02/18 [Rx] Past Medical History - Past Health History Medical/Surgical History: Denies Medical/Surgical History HEENT History: Reports: None, Other (See Below) Other HEENT History: glasses Gastrointestinal History: Reports: None Genitourinary History: Reports: UTI, Recurrent 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 feels look like ringworm; have been biopsied by Dr. Pantoja. - Infectious Disease History Infectious Disease History: Reports: Hepatitis C - Past Surgical History GI Surgical History: Reports: Appendectomy, Cholecystectomy, Colonoscopy, EGD Female Surgical History: Reports: Hysterectomy Neurological Surgical History: Reports: Lumbar Spine Musculoskeletal Surgical History: Reports: Other (See Below) Other Musculoskeletal Surgeries/Procedures:: Back surgery 06/20; knee surgery Social & Family History - Family History Family Medical History: Noncontributory - Tobacco Use Smoking Status *Q: Current Every Day Smoker Years of Tobacco use: 18 Packs/Tins Daily: 0.5 Used Tobacco, but Quit: No Second Hand Smoke Exposure: Yes - Caffeine Use Caffeine Use: Reports: Coffee, Energy Drinks, Soda - Alcohol Use Days Per Week of Alcohol Use: 7 Number of Drinks Per Day: 2 Total Drinks Per Week: 14 - Recreational Drug Use Recreational Drug Use: No Drug Use in Last 12 Months: Yes Recreational Drug Type: Reports: Marijuana/Hashish Recreational Drug Use Frequency: Not Used In Over 6 Months - Living Situation & Occupation Living situation: Reports: Single ED ROS GENERAL - Review of Systems Review Of Systems: See Below Constitutional: Reports: No Symptoms HEENT: Reports: No Symptoms Respiratory: Reports: No Symptoms Cardiovascular: Reports: No Symptoms Endocrine: Reports: No Symptoms GI/Abdominal: Reports: No Symptoms : Reports: No Symptoms Musculoskeletal: Reports: Back Pain Skin: Reports: No Symptoms Neurological: Reports: No Symptoms Psychiatric: Reports: No Symptoms Hematologic/Lymphatic: Reports: No Symptoms Immunologic: Reports: No Symptoms ED EXAM, GENERAL - Physical Exam Exam: See Below Exam Limited By: No Limitations General Appearance: Alert, WD/WN, No Apparent Distress Neck: Normal Inspection, Supple, Non-Tender, Full Range of Motion Respiratory/Chest: No Respiratory Distress, Lungs Clear, Normal Breath Sounds, No Accessory Muscle Use, Chest Non-Tender Cardiovascular: Normal Peripheral Pulses, Regular Rate, Rhythm, No Edema, No Gallop, No JVD, No Murmur, No Rub GI/Abdominal: Normal Bowel Sounds, Soft, Non-Tender, No Organomegaly, No Distention, No Abnormal Bruit, No Mass Back Exam: Full Range of Motion, Muscle Spasm, Paraspinal Tenderness Extremities: Normal Inspection, Normal Range of Motion, Non-Tender, Normal Capillary Refill, No Pedal Edema Neurological: Alert, Oriented, CN II-XII Intact, Normal Cognition, Normal Gait, Normal Reflexes, No Motor/Sensory Deficits Psychiatric: Normal Affect, Normal Mood Skin Exam: Warm, Dry, Intact, Normal Color, No Rash Lymphatic: No Adenopathy Course - Vital Signs Last Recorded V/S: Last Vital Signs Temp 36.8 C 01/02/18 17:28 Pulse 94 01/02/18 17:28 Resp 20 01/02/18 17:28 BP 121/80 01/02/18 17:28 Pulse Ox 98 01/02/18 17:28 - Orders/Labs/Meds Orders: Active Orders 24 hr Category Date Time Status Ketorolac [Toradol] Med 01/02/18 18:02 Once 60 mg IM ONETIME ONE methylPREDNISolone Sod Succ [Solu-MEDROL] Med 01/02/18 18:02 Once 125 mg IM ONETIME ONE Departure - Departure Time of Disposition: 18:13 Disposition: Home, Self-Care 01 Condition: Good Clinical Impression: Chronic back pain Qualifiers: Back pain location: low back pain Back pain laterality: left Sciatica presence : with sciatica Sciatica laterality: sciatica of left side Qualified Code(s): M54.42 - Lumbago with sciatica, left side - Discharge Information Prescriptions: Prednisone [IJD: predniSONE] 20 mg PO WITHBREAKFAST #15 tab Instructions: Chronic Back Pain, What You Need to Know About Chronic Back Pain Referrals: Stuart Barillas PA-C [Primary Care Provider] - Forms: ED Department Discharge - My Orders Last 24 Hours: My Active Orders 01/02/18 18:02 Ketorolac [Toradol] 60 mg IM ONETIME ONE methylPREDNISolone Sod Succ [Solu-MEDROL] 125 mg IM ONETIME ONE - Assessment/Plan Last 24 Hours: My Active Orders 01/02/18 18:02 Ketorolac [Toradol] 60 mg IM ONETIME ONE methylPREDNISolone Sod Succ [Solu-MEDROL] 125 mg IM ONETIME ONE Assessment:: 1. Chronic low back pain Plan: 1. discharge home 2. follow up at clinic tomorrow as scheduled 3. prednisone 60mg PO QD x 5 days 4. return to ER for worsening symptoms
== END 2018-01-02 18:25 | disposition home or self-care (01) ==
LOC: KA.ED 17:10
DX: M54.42 Lumbago with sciatica, left side (principal); F32.9 Major depressive disorder, single episode, unspecified; F41.9 Anxiety disorder, unspecified; F17.210 Nicotine dependence, cigarettes, uncomplicated; Z88.5 Allergy status to narcotic agent; Z88.8 Allergy status to other drugs, medicaments and biological substances; Z79.899 Other long term (current) drug therapy; Z87.440 Personal history of urinary (tract) infections; Z90.49 Acquired absence of other specified parts of digestive tract
CPT/HCPCS: 96372; 99283; J1885; J2930

== ENCOUNTER 2019-04-15 10:40 | Emergency (ER) | payer MEDICAID ==
[2019-04-15 11:26] VITALS: BP 129/81; PULSE 102
[2019-04-15] MEDS ORDERED: Venlafaxine 150 MG Cap.ER PO SCH (11:45)
--- NOTE | 2019-04-15 11:47 | EDM.PDOC ---
ED HPI GENERAL MEDICAL PROBLEM - General Chief Complaint: General Stated Complaint: NEEDS MEDICINE REFILLS Time Seen by Provider: 04/15/19 11:15 Source of Information: Reports: Patient History Limitations: Reports: No Limitations - History of Present Illness INITIAL COMMENTS - FREE TEXT/NARRATIVE: 33 YO WF presents to ER for medication refill. Pt reports she ran out of her Effexor XR about 1 week ago and is requesting a refill until she is able to follow up with her psychiatrist. Pt reports mild dizziness and mood swings but denies suicidal or homicidal ideation. Pt denies auditory/visual hallucinations. Pt is alert and oriented x 4 and in NAD. Pt denies chest pain, shortness of breath, fever/chills, nausea/vomiting. Onset: Today Duration: Chronic Location: Reports: Generalized Severity: Mild Improves with: Reports: None Worsens with: Reports: None Associated Symptoms: Reports: No Other Symptoms - Related Data Allergies Allergy/AdvReac Type Severity Reaction Status Date / Time celecoxib [From Celebrex] Allergy Unknown Hives Verified 04/15/19 11:16 tramadol Allergy Hives Verified 04/15/19 11:16 Home Meds: Home Meds Venlafaxine [Venlafaxine HCl ER] 150 mg PO DAILY 05/29/17 [History] busPIRone [Buspar] 20 mg PO BID 06/13/17 [History] Baclofen 10 mg PO TID PRN 08/13/17 [History] tiZANidine [Zanaflex] 4 mg PO BEDTIME 08/30/17 [History] ARIPiprazole [Abilify] 10 mg PO BID 04/15/19 [History] Buprenorphine HCl/Naloxone HCl [Buprenorphin-Naloxon 8-2 mg Sl] 0.5 tab PO BID 04/15/19 [History] Gabapentin [Neurontin] 800 mg PO TID 04/15/19 [History] Topiramate 50 mg PO BEDTIME 04/15/19 [History] Venlafaxine [Effexor XR] 150 mg PO DAILY #30 cap.er 04/15/19 [Rx] Past Medical History - Past Health History Medical/Surgical History: Denies Medical/Surgical History HEENT History: Reports: None, Other (See Below) Other HEENT History: glasses Gastrointestinal History: Reports: None Genitourinary History: Reports: UTI, Recurrent 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 feels look like ringworm; have been biopsied by Dr. Patnoja. - Infectious Disease History Infectious Disease History: Reports: MRSA - Past Surgical History GI Surgical History: Reports: Appendectomy, Cholecystectomy, Colonoscopy, EGD Female Surgical History: Reports: Hysterectomy Neurological Surgical History: Reports: Lumbar Spine Musculoskeletal Surgical History: Reports: Other (See Below) Other Musculoskeletal Surgeries/Procedures:: Back surgery 06/20; knee surgery Social & Family History - Family History Family Medical History: Noncontributory - Tobacco Use Smoking Status *Q: Current Every Day Smoker Years of Tobacco use: 18 Packs/Tins Daily: 1 - Caffeine Use Caffeine Use: Reports: Coffee, Energy Drinks Other Caffeine Use: monsters - 2 per day - Alcohol Use Days Per Week of Alcohol Use: 7 Number of Drinks Per Day: 12 Total Drinks Per Week: 84 Date of Last Drink: 10/18/18 - Recreational Drug Use Recreational Drug Use: Yes Recreational Drug Type: Reports: Marijuana/Hashish, Oxycodone, Xanax - Living Situation & Occupation Living situation: Reports: Single ED ROS GENERAL - Review of Systems Review Of Systems: See Below Constitutional: Reports: No Symptoms HEENT: Reports: No Symptoms Respiratory: Reports: No Symptoms Cardiovascular: Reports: No Symptoms Endocrine: Reports: No Symptoms GI/Abdominal: Reports: No Symptoms : Reports: No Symptoms Musculoskeletal: Reports: No Symptoms Skin: Reports: No Symptoms Neurological: Reports: No Symptoms Psychiatric: Reports: Depression, Mood Lability. Denies: Agitation, Anxiety, Confusion, Cravings, Hallucinations, Homicidal Ideation, Suicidal Ideation Hematologic/Lymphatic: Reports: No Symptoms Immunologic: Reports: No Symptoms ED EXAM, GENERAL - Physical Exam Exam: See Below Exam Limited By: No Limitations General Appearance: Alert, WD/WN, No Apparent Distress Eye Exam: Bilateral Eye: EOMI, PERRL Ears: Normal External Exam, Normal Canal, Hearing Grossly Normal, Normal TMs Nose: Normal Inspection, Normal Mucosa, No Blood Throat/Mouth: Normal Inspection, Normal Lips, Normal Teeth, Normal Gums, Normal Oropharynx, Normal Voice, No Airway Compromise Head: Atraumatic, Normocephalic Neck: Normal Inspection, Supple, Non-Tender, Full Range of Motion Respiratory/Chest: No Respiratory Distress, Lungs Clear, Normal Breath Sounds, No Accessory Muscle Use, Chest Non-Tender Cardiovascular: Normal Peripheral Pulses, Regular Rate, Rhythm, No Edema, No Gallop, No JVD, No Murmur, No Rub GI/Abdominal: Normal Bowel Sounds, Soft, Non-Tender, No Organomegaly, No Distention, No Abnormal Bruit, No Mass Back Exam: Normal Inspection, Full Range of Motion, NT Extremities: Normal Inspection, Normal Range of Motion, Non-Tender, Normal Capillary Refill, No Pedal Edema Neurological: Alert, Oriented, CN II-XII Intact, Normal Cognition, Normal Gait, Normal Reflexes, No Motor/Sensory Deficits Psychiatric: Normal Affect, Normal Mood Skin Exam: Warm, Dry, Intact, Normal Color, No Rash Lymphatic: No Adenopathy Course - Vital Signs Last Recorded V/S: Last Vital Signs Temp 36.9 C 04/15/19 11:22 Pulse 102 H 04/15/19 11:22 Resp 20 04/15/19 11:22 BP 129/81 04/15/19 11:22 Pulse Ox 97 04/15/19 11:22 - Orders/Labs/Meds Orders: Active Orders 24 hr Category Date Time Status Venlafaxine [Effexor XR] Med 04/15/19 11:45 Active 150 mg PO DAILY Medication Orders Venlafaxine HCl (Effexor Xr) 150 mg PO DAILY [facility] Last Admin: 04/15/19 12:01 Dose: 150 mg Meds: Medications Generic Name Dose Route Start Last Admin Trade Name Freq PRN Reason Stop Dose Admin Venlafaxine HCl 150 mg 04/15/19 11:45 04/15/19 12:01 Effexor Xr PO 150 mg DAILY [facility] Administration Departure - Departure Time of Disposition: 12:25 Disposition: Home, Self-Care 01 Condition: Good Clinical Impression: Medication refill - Discharge Information Prescriptions: Venlafaxine [Effexor XR] 150 mg PO DAILY #30 cap.er Instructions: Medicine Refill at the Emergency Department Referrals: Nola Bardales MD [Primary Care Provider] - Forms: ED Department Discharge Additional Instructions: 1. discharge home 2. Effexor XR 150mg PO QD #30 3. follow up with psychiatry for further management 4. return to ER for worsening symptoms - My Orders Last 24 Hours: My Active Orders 04/15/19 11:45 Venlafaxine [Effexor XR] 150 mg PO DAILY - Assessment/Plan Last 24 Hours: My Active Orders 04/15/19 11:45 Venlafaxine [Effexor XR] 150 mg PO DAILY Assessment:: 1. medication refill Plan: 1. discharge home 2. Effexor XR 150mg PO QD #30 3. follow up with psychiatry for further management 4. return to ER for worsening symptoms
== END 2019-04-15 12:30 | disposition home or self-care (01) ==
LOC: KA.ED 10:40
DX: Z76.0 Encounter for issue of repeat prescription (principal); F41.9 Anxiety disorder, unspecified; F32.9 Major depressive disorder, single episode, unspecified; F17.210 Nicotine dependence, cigarettes, uncomplicated; Z88.5 Allergy status to narcotic agent; Z88.6 Allergy status to analgesic agent; Z79.899 Other long term (current) drug therapy; Z86.14 Personal history of Methicillin resistant Staphylococcus aureus infection
CPT/HCPCS: 99281; A9270; 99284

== ENCOUNTER 2019-09-01 11:45 | Emergency (ER) | payer MEDICAID ==
[2019-09-01] MEDS: Morphine 2 MG/ML Syringe IVPUSH ONE ×2 (12:07→13:11)
[2019-09-01] MEDS ORDERED: Ondansetron 4 MG/2 ML SDV IVPUSH ONE (12:19)
[2019-09-01] MEDS ORDERED: Morphine 10 MG/ML Syringe IVPUSH ONE (12:19)
--- NOTE | 2019-09-01 12:33 | EDM.PDOC ---
ED HPI GENERAL MEDICAL PROBLEM - General Chief Complaint: Upper Extremity Injury/Pain Stated Complaint: RIGHT UPPER ARM PAIN Time Seen by Provider: 09/01/19 12:18 Source of Information: Reports: Patient History Limitations: Reports: No Limitations - History of Present Illness INITIAL COMMENTS - FREE TEXT/NARRATIVE: Patient is a 34-year-old female who presents to the emergency department via EMS secondary to fall and trauma to right upper extremity. Patient states that she slipped on wet surface while at home just prior to arrival. Patient landed on right elbow. Patient denies head injury, LOC, neck pain, back pain, or any other injuries and fall. Onset: Today, Sudden Duration: Minutes: Location: Reports: Upper Extremity, Right Quality: Reports: Sharp Severity: Moderate Improves with: Reports: None Worsens with: Reports: Movement Associated Symptoms: Reports: No Other Symptoms - Related Data Allergies Allergy/AdvReac Type Severity Reaction Status Date / Time celecoxib [From Celebrex] Allergy Unknown Hives Verified 09/01/19 12:35 tramadol Allergy Hives Verified 09/01/19 12:35 Home Meds: Home Meds busPIRone [Buspar] 20 mg PO BID 06/13/17 [History] tiZANidine [Zanaflex] 4 mg PO BEDTIME 08/30/17 [History] ARIPiprazole [Abilify] 10 mg PO BID 04/15/19 [History] Buprenorphine HCl/Naloxone HCl [Buprenorphin-Naloxon 8-2 mg Sl] 0.5 tab PO BID 04/15/19 [History] Gabapentin [Neurontin] 800 mg PO TID 04/15/19 [History] Topiramate 50 mg PO BEDTIME 04/15/19 [History] Venlafaxine [Effexor XR] 150 mg PO DAILY #30 cap.er 04/15/19 [Rx] Dextroamphetamine/Amphetamine [Adderall 10 mg Tablet] 15 mg PO BID 09/01/19 [ History] Past Medical History - Past Health History Medical/Surgical History: Denies Medical/Surgical History HEENT History: Reports: None, Other (See Below) Other HEENT History: glasses Gastrointestinal History: Reports: None Genitourinary History: Reports: UTI, Recurrent 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 feels look like ringworm; have been biopsied by Dr. Pantoja. - Infectious Disease History Infectious Disease History: Reports: MRSA - Past Surgical History GI Surgical History: Reports: Appendectomy, Cholecystectomy, Colonoscopy, EGD Female Surgical History: Reports: Hysterectomy Neurological Surgical History: Reports: Lumbar Spine Musculoskeletal Surgical History: Reports: Other (See Below) Other Musculoskeletal Surgeries/Procedures:: Back surgery 06/20; knee surgery Social & Family History - Family History Family Medical History: Noncontributory - Caffeine Use Caffeine Use: Reports: Coffee, Energy Drinks Other Caffeine Use: monsters - 2 per day - Living Situation & Occupation Living situation: Reports: Single Review of Systems - Review of Systems Review Of Systems: Comprehensive ROS is negative, except as noted in HPI. Constitutional: Reports: No Symptoms Eyes: Reports: No Symptoms Ears: Reports: No Symptoms Nose: Reports: No Symptoms Mouth/Throat: Reports: No Symptoms Respiratory: Reports: No Symptoms Cardiovascular: Reports: No Symptoms GI/Abdominal: Reports: No Symptoms Genitourinary: Reports: No Symptoms Musculoskeletal: Reports: Arm Pain (Right upper) Skin: Reports: No Symptoms Neurological: Reports: No Symptoms Psychiatric: Reports: No Symptoms ED EXAM, GENERAL - Physical Exam Exam: See Below Exam Limited By: No Limitations General Appearance: Alert, WD/WN, Moderate Distress Nose: Normal Inspection, No Blood Throat/Mouth: Normal Inspection, Normal Oropharynx, No Airway Compromise Head: Atraumatic, Normocephalic Neck: Normal Inspection, Supple, Non-Tender, Full Range of Motion Respiratory/Chest: No Respiratory Distress, Lungs Clear Cardiovascular: Regular Rate, Rhythm, No Murmur Peripheral Pulses: 2+: Brachial (L), Brachial (R), Radial (L), Radial (R) GI/Abdominal: Normal Bowel Sounds, Soft, Non-Tender Back Exam: Normal Inspection Extremities: Arm Pain (Right upper extremity with moderate edema. No forearm, wrist or shoulder tenderness on palpation), Other (2+ palpable radial pulse, no hand numbness or tingling, no radial nerve involvement currently) Neurological: Alert, Oriented, Normal Cognition, No Motor/Sensory Deficits Psychiatric: Normal Affect, Normal Mood Skin Exam: Warm, Dry, Intact, Normal Color, No Rash Course - Orders/Labs/Meds Orders: Active Orders 24 hr Category Date Time Status Humerus Rt [CR] Stat Exams 09/01/19 12:20 Ordered Morphine Med 09/01/19 12:19 Once 8 mg IVPUSH ONETIME ONE Ondansetron [Zofran] Med 09/01/19 12:19 Once 4 mg IVPUSH ONETIME ONE - Radiology Interpretation Free Text/Narrative:: Right humeral x-ray shows angulated mid diaphyseal fracture - Re-Assessments/Exams Free Text/Narrative Re-Assessment/Exam: 09/01/19 13:[address] Beckham, orthopedic surgery at [facility]. After reviewing the plain films, Dr. Beckham felt that although patient is a surgical candidate she would be stable to be sent home and contact [facility] orthopedic clinic on Tuesday for surgery scheduling. Explained to patient in detail concern for compartment syndrome and symptoms that may present. Patient is well aware and will return to emergency department if any no symptoms present. 09/01/19 13:21 Patient afebrile, vital signs stable, pain controlled. Arm sling applied with good position. Patient will be sent home with pain medicine, to be taken as directed. 09/01/19 13:23 Departure - Departure Time of Disposition: 13:26 Disposition: Home, Self-Care 01 Condition: Good Clinical Impression: Fracture of humerus Qualifiers: Encounter type: initial encounter Fracture type: closed Fracture morphology: comminuted Fracture alignment: displaced Laterality: right - Discharge Information Instructions: Humerus Fracture Treated With Immobilization, [id number], Pain Medicine Instructions, [id number], How to Use a Sling, [id number] Additional Instructions: Contact the [facility] orthopedic clinic at [phone] on Tuesday at 8 a.m. Scheduling for surgery will be done then. If numbness, tingling or hand pain, develops return to the emergency department immediately. Take pain medication as directed. - My Orders Last 24 Hours: My Active Orders 09/01/19 12:19 Morphine 8 mg IVPUSH ONETIME ONE Ondansetron [Zofran] 4 mg IVPUSH ONETIME ONE 09/01/19 12:20 Humerus Rt [CR] Stat - Assessment/Plan Last 24 Hours: My Active Orders 09/01/19 12:19 Morphine 8 mg IVPUSH ONETIME ONE Ondansetron [Zofran] 4 mg IVPUSH ONETIME ONE 09/01/19 12:20 Humerus Rt [CR] Stat Assessment:: Humeral fracture Plan: Follow-up at [facility] orthopedic [facility]
[2019-09-01 12:35] VITALS: BP 121/79; PULSE 92
[2019-09-01] MEDS ORDERED: Acetaminophen/oxyCODONE 325-5 MG Tab PO ONE (13:21)
== END 2019-09-01 13:45 | disposition home or self-care (01) ==
LOC: KA.ED 11:45
DX: S42.351A Displaced comminuted fracture of shaft of humerus, right arm, initial encounter for closed fracture (principal); F41.0 Panic disorder [episodic paroxysmal anxiety]; F32.9 Major depressive disorder, single episode, unspecified; Z79.899 Other long term (current) drug therapy; Z88.5 Allergy status to narcotic agent; Z88.8 Allergy status to other drugs, medicaments and biological substances; W01.0XXA Fall on same level from slipping, tripping and stumbling without subsequent striking against object, initial encounter; Y92.009 Unspecified place in unspecified non-institutional (private) residence as the place of occurrence of the external cause
CPT/HCPCS: 73060; 96374; 96375; 99284; J2270; J2405

== ENCOUNTER 2019-09-08 13:01 | Emergency (ER) | payer MEDICAID ==
--- NOTE | 2019-09-08 13:13 | EDM.PDOC ---
ED HPI GENERAL MEDICAL PROBLEM - General Stated Complaint: right arm pain Time Seen by Provider: 09/08/19 13:06 Source of Information: Reports: Patient History Limitations: Reports: No Limitations - History of Present Illness INITIAL COMMENTS - FREE TEXT/NARRATIVE: Presents with continuing pain secondary of right midshaft humeral fracture. Was originally scheduled to see Dr. Shelby in [place] on the 07 September 2019 for recheck. Due to travel conditions was offered an appointment here in AT the [facility] on Tuesday, 10 September 2019. Due to this change in appointment scheduling she has exhausted her prescription for oxycodone 5 mg tablet, immediate release was provided the time of her discharge from [facility]. She presents here today for continued pain Onset: Gradual Duration: Day(s): right arm Pain Score (Numeric/FACES): 6 - Related Data Allergies Allergy/AdvReac Type Severity Reaction Status Date / Time celecoxib [From Celebrex] Allergy Unknown Hives Verified 09/08/19 13:11 tramadol Allergy Hives Verified 09/08/19 13:11 Home Meds: Home Meds busPIRone [Buspar] 20 mg PO BID 06/13/17 [History] tiZANidine [Zanaflex] 4 mg PO BEDTIME 08/30/17 [History] ARIPiprazole [Abilify] 10 mg PO BID 04/15/19 [History] Buprenorphine HCl/Naloxone HCl [Buprenorphin-Naloxon 8-2 mg Sl] 0.5 tab PO BID 04/15/19 [History] Gabapentin [Neurontin] 800 mg PO TID 04/15/19 [History] Topiramate 50 mg PO BEDTIME 04/15/19 [History] Venlafaxine [Effexor XR] 150 mg PO DAILY #30 cap.er 04/15/19 [Rx] Dextroamphetamine/Amphetamine [Adderall 10 mg Tablet] 15 mg PO BID 09/01/19 [ History] oxyCODONE 5 mg PO Q6H 09/08/19 [History] Past Medical History - Past Health History Medical/Surgical History: Denies Medical/Surgical History HEENT History: Reports: None, Other (See Below) Other HEENT History: glasses Cardiovascular History: Reports: None Respiratory History: Reports: None Gastrointestinal History: Reports: None Genitourinary History: Reports: UTI, Recurrent 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 feels look like ringworm; have been biopsied by Dr. Pantoja. - Infectious Disease History Infectious Disease History: Reports: MRSA - Past Surgical History GI Surgical History: Reports: Appendectomy, Cholecystectomy, Colonoscopy, EGD Female Surgical History: Reports: Hysterectomy Neurological Surgical History: Reports: Lumbar Spine Musculoskeletal Surgical History: Reports: Other (See Below) Other Musculoskeletal Surgeries/Procedures:: Back surgery 06/20; knee surgery Social & Family History - Family History Family Medical History: Noncontributory - Caffeine Use Caffeine Use: Reports: Coffee, Energy Drinks Other Caffeine Use: monsters - 2 per day - Living Situation & Occupation Living situation: Reports: Single Review of Systems - Review of Systems Review Of Systems: Comprehensive ROS is negative, except as noted in HPI. ED EXAM, GENERAL - Physical Exam Exam: See Below Free Text/Narrative:: Vane, 34-year-old female, presents with continued pain to the right upper extremity, secondary of midshaft humerus fracture. She was scheduled to be evaluated on the with appointment changed to the sixth as Dr. Shelby, will be in [place] that day. She has an appropriately fitting full cast with no evidence of irritation in the upper margins. She shows bruising at the wrist with ecchymosis, there is a good radial pulse correlating with apical heart rate. No respiratory distress. She brings up chronic back issues showing a well-healed scar upon scar in the lumbar region. He is able to move her digits with no complaint. Pain has increased secondary of exhaustion of her prescription as her appointment was changed. Course - Vital Signs Last Recorded V/S: Last Vital Signs Temp 37.1 C 09/08/19 13:01 Pulse 99 09/08/19 13:01 Resp 14 09/08/19 13:01 BP 114/86 09/08/19 13:01 Pulse Ox 96 09/08/19 13:01 - Orders/Labs/Meds Meds: Medications Discontinued Medications Generic Name Dose Route Start Last Admin Trade Name Ana Luisa PRN Reason Stop Dose Admin Oxycodone HCl 40 mg 09/08/19 13:19 09/08/19 13:30 Oxycodone PO 40 mg Q6H PRN Administration Pain (moderate 4-6) Departure - Departure Time of Disposition: 13:33 Disposition: Home, Self-Care 01 Condition: Fair Clinical Impression: Medication refill Fracture of humerus Qualifiers: Encounter type: initial encounter Fracture type: closed Fracture morphology: comminuted Fracture alignment: displaced Laterality: right - Discharge Information *PRESCRIPTION DRUG MONITORING PROGRAM REVIEWED*: Yes *COPY OF PRESCRIPTION DRUG MONITORING REPORT IN PATIENT JAMES: Yes Instructions: Humerus Fracture Treated With Immobilization, [id number], Medicine Refill at the Emergency Department Forms: ED Department Discharge Additional Instructions: Take your medication, oxycodone 5 mg, every 6 hours as needed for pain. You may continue with her ibuprofen and Tylenol, as previous. As pharmacies are closed at this time, you will be provided with 8 pills, 5 mg oxycodone, total last you until your appointment with Dr. Shelby Tuesday, 10 September 2019. Continue all directions that she were given at the time of casting and evaluation at [place]. Continue your Other medications as directed Sepsis Event Note - Focused Exam Vital Signs: Vital Signs Temp Pulse Resp BP Pulse Ox 09/08/19 13:01 37.1 C 99 14 114/86 96 Date Exam was Performed: 09/08/19 Time Exam was Performed: 22:29 - Problem List & Annotations (1) Medication management SNOMED Code(s): 379849961, 113825530 Code(s): Z79.899 - OTHER RETIREMENT (CURRENT) DRUG THERAPY Status: Acute (2) Fracture of humerus SNOMED Code(s): 85816617 Code(s): S42.309A - UNSP FRACTURE OF SHAFT OF HUMERUS, UNSP ARM, INIT Status: Acute Qualifiers: Encounter type: initial encounter Fracture type: closed Fracture morphology: comminuted Fracture alignment: displaced Laterality: right - Problem List Review Problem List Initiated/Reviewed/Updated: Yes - Assessment/Plan Plan: Take your medication, oxycodone 5 mg, every 6 hours as needed for pain. You may continue with her ibuprofen and Tylenol, as previous. As pharmacies are closed at this time, you will be provided with 8 pills, 5 mg oxycodone, total last few until your appointment with Dr. Shelby Tuesday, 10 September 2019. Continue all directions that you were given at the time of casting and evaluation at [facility]. Continue all Other medications as directed
[2019-09-08 13:18] VITALS: BP 114/86; PULSE 99
[2019-09-08] MEDS ORDERED: oxyCODONE 5 MG Tab PO PRN (13:19)
== END 2019-09-08 13:41 | disposition home or self-care (01) ==
LOC: KA.ED 13:01
DX: Z76.0 Encounter for issue of repeat prescription (principal); F41.9 Anxiety disorder, unspecified; F32.9 Major depressive disorder, single episode, unspecified; Z88.5 Allergy status to narcotic agent; Z88.6 Allergy status to analgesic agent; Z79.899 Other long term (current) drug therapy
CPT/HCPCS: 99283; A9270

== ENCOUNTER 2019-09-18 07:25 | Emergency (ER) | payer MEDICAID ==
[2019-09-18] MEDS ORDERED: Ondansetron 4 MG/2 ML SDV IVPUSH ONE (07:40)
[2019-09-18] MEDS ORDERED: Sodium Chloride 0.9% 1,000 ML ONE (07:42)
[2019-09-18] MEDS ORDERED: Ondansetron 4 MG/2 ML SDV ONE (07:42)
[2019-09-18 07:53] VITALS: BP 111/81; PULSE 86
[2019-09-18] MEDS ORDERED: Sodium Chloride 0.9% 1,000 ML IV ONE (07:54)
[2019-09-18] MEDS ORDERED: Sodium Chloride 0.9% 10 ML Syringe FLUSH PRN (07:55)
[2019-09-18] MEDS ORDERED: LORazepam 0.5 MG Tab PO ONE (08:06)
[2019-09-18] MEDS ORDERED: Ondansetron 4 MG Tab.DIS PO ONE (08:06)
--- NOTE | 2019-09-18 08:13 | EDM.PDOC ---
ED HPI GENERAL MEDICAL PROBLEM - General Chief Complaint: General Stated Complaint: NAUSEA/PAIN Time Seen by Provider: 09/18/19 08:00 Source of Information: Reports: Patient, Other (friend) History Limitations: Reports: No Limitations - History of Present Illness INITIAL COMMENTS - FREE TEXT/NARRATIVE: Patient presents with nausea, vomiting and right arm pain (post-op). She has vomited about 4 times since it started 6 hours ago. Yesterday she had what sounds like a humeral daniel and screws placed following a humeral fracture. She has pain meds at home and anxiety meds. Abdomen Pain Score (Numeric/FACES): 8 Right Arm Pain Score (Numeric/FACES): 8 - Related Data Allergies Allergy/AdvReac Type Severity Reaction Status Date / Time celecoxib [From Celebrex] Allergy Unknown Hives Verified 09/18/19 07:49 tramadol Allergy Hives Verified 09/18/19 07:49 Home Meds: Home Meds busPIRone [Buspar] 20 mg PO BID 06/13/17 [History] tiZANidine [Zanaflex] 4 mg PO BEDTIME 08/30/17 [History] ARIPiprazole [Abilify] 10 mg PO BID 04/15/19 [History] Buprenorphine HCl/Naloxone HCl [Buprenorphin-Naloxon 8-2 mg Sl] 0.5 tab PO BID 04/15/19 [History] Gabapentin [Neurontin] 800 mg PO TID 04/15/19 [History] Topiramate 50 mg PO BEDTIME 04/15/19 [History] Venlafaxine [Effexor XR] 150 mg PO DAILY #30 cap.er 04/15/19 [Rx] Dextroamphetamine/Amphetamine [Adderall 10 mg Tablet] 15 mg PO BID 09/01/19 [ History] oxyCODONE 5 mg PO Q6H 09/08/19 [History] Past Medical History - Past Health History Medical/Surgical History: Denies Medical/Surgical History HEENT History: Reports: None, Other (See Below) Other HEENT History: glasses Cardiovascular History: Reports: None Respiratory History: Reports: None Gastrointestinal History: Reports: None Genitourinary History: Reports: UTI, Recurrent 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 feels look like ringworm; have been biopsied by Dr. Pantoja. - Infectious Disease History Infectious Disease History: Reports: MRSA - Past Surgical History GI Surgical History: Reports: Appendectomy, Cholecystectomy, Colonoscopy, EGD Female Surgical History: Reports: Hysterectomy Neurological Surgical History: Reports: Lumbar Spine Musculoskeletal Surgical History: Reports: Other (See Below) Other Musculoskeletal Surgeries/Procedures:: Back surgery 06/20; knee surgery Social & Family History - Family History Family Medical History: Noncontributory - Caffeine Use Caffeine Use: Reports: Coffee, Energy Drinks Other Caffeine Use: monsters - 2 per day - Living Situation & Occupation Living situation: Reports: Single ED ROS GENERAL - Review of Systems Review Of Systems: See Below (very limited because she didn't want to stay to answer questions, she just wanted to go home.) Constitutional: Denies: Fever Respiratory: Denies: Shortness of Breath Cardiovascular: Denies: Chest Pain GI/Abdominal: Reports: Nausea, Vomiting. Denies: Diarrhea Skin: Denies: Cyanosis, Jaundice, Mottled, Pallor, Diaphoresis Neurological: Denies: Confusion, Seizure, Syncope, Trouble Speaking, Difficulty Walking Psychiatric: Reports: Agitation, Anxiety ED EXAM, GENERAL - Physical Exam Exam: See Below Exam Limited By: Other (patient was agitated and impatient with nurse and myself ) General Appearance: Alert, WD/WN, No Apparent Distress Ears: Normal External Exam, Hearing Grossly Normal Nose: Normal Inspection, No Blood Throat/Mouth: Normal Inspection, Normal Lips, Normal Voice, No Airway Compromise Head: Atraumatic, Normocephalic Neck: Normal Inspection, Full Range of Motion Respiratory/Chest: No Respiratory Distress, Lungs Clear, Normal Breath Sounds, No Accessory Muscle Use Cardiovascular: Regular Rate, Rhythm, No Murmur Extremities: Other (right arm in sling) Neurological: Alert, Oriented, Normal Cognition, No Motor/Sensory Deficits Psychiatric: Anxious (and theatrical) Skin Exam: Warm, Dry, Intact Course - Vital Signs Last Recorded V/S: Last Vital Signs Temp 97.6 F 09/18/19 07:49 Pulse 86 09/18/19 07:49 Resp 20 09/18/19 07:49 BP 111/81 09/18/19 07:49 Pulse Ox 98 09/18/19 07:49 - Orders/Labs/Meds Orders: Active Orders 24 hr Category Date Time Status Peripheral IV Care [RC] . DIRECTED Care 09/18/19 07:55 Active LORazepam [Ativan] Med 09/18/19 08:06 Once 0.5 mg PO ONETIME ONE Ondansetron [Zofran ODT] Med 09/18/19 08:06 Once 4 mg PO ONETIME ONE Sodium Chloride 0.9% [Normal Saline] 1,000 ml Med 09/18/19 07:54 Active IV .BOLUS Sodium Chloride 0.9% [Saline Flush] Med 09/18/19 07:55 Active 10 ml FLUSH Q8HR PRN Peripheral IV Insertion Adult [OM.PC] Routine Oth 09/18/19 07:55 Ordered Medication Orders Sodium Chloride (Normal Saline) 1,000 mls @ 999 mls/hr IV .BOLUS ONE Stop: 09/18/19 08:54 Last Admin: 09/18/19 07:45 Dose: 999 mls/hr Sodium Chloride (Saline Flush) 10 ml FLUSH Q8HR PRN PRN Reason: keep vein open Meds: Medications Generic Name Dose Route Start Last Admin Trade Name Freq PRN Reason Stop Dose Admin Sodium Chloride 1,000 mls @ 999 mls/hr 09/18/19 07:54 09/18/19 07:45 Normal Saline IV 09/18/19 08:54 999 mls/hr .BOLUS ONE Administration Sodium Chloride 10 ml 09/18/19 07:55 Saline Flush FLUSH Q8HR PRN keep vein open Discontinued Medications Generic Name Dose Route Start Last Admin Trade Name Freq PRN Reason Stop Dose Admin Sodium Chloride Confirm 09/18/19 07:42 09/18/19 07:56 Normal Saline Administered 09/18/19 07:43 Not Given Dose 1,000 mls @ as directed .ROUTE .STK-MED ONE Ondansetron HCl Confirm 09/18/19 07:42 09/18/19 07:57 Zofran Administered 09/18/19 07:43 Not Given Dose 4 mg .ROUTE .STK-MED ONE Ondansetron HCl 4 mg 09/18/19 07:40 09/18/19 07:45 Zofran IVPUSH 09/18/19 07:41 4 mg ONETIME ONE Administration - Re-Assessments/Exams Free Text/Narrative Re-Assessment/Exam: 09/18/19 09:24 Patient appeared stable. She vomited once on the floor. She kept saying she just wants to go home. She thrashed around and pulled her IV out but did get a dose of IV Zofran and limited fluids first. We gave another dose ODT and offered something for anxiety but she just wants to go home. She was discharged at her request after just a brief exam which didn't indicated anything serious. Departure - Departure Time of Disposition: 08:10 Disposition: Home, Self-Care 01 Condition: Good Clinical Impression: Post-operative pain Nausea and vomiting Qualifiers: Vomiting type: unspecified Vomiting Intractability: unspecified Qualified Code( s): R11.2 - Nausea with vomiting, unspecified - Discharge Information Instructions: Nausea and Vomiting, Adult, [id number] Referrals: Nola Bardales MD [Primary Care Provider] - Additional Instructions: 1. Drink plenty of water as soon as you are able to keep it down. 2. Follow your surgeon's post-op instructions and call them with questions or problems. 3. Take the Zofran as directed for nausea and vomiting. Sepsis Event Note - Evaluation Sepsis Screening Result: No Definite Risk - Focused Exam Vital Signs: Vital Signs Temp Pulse Resp BP Pulse Ox 09/18/19 07:49 97.6 F 86 20 111/81 98 Date Exam was Performed: 09/18/19 Time Exam was Performed: 08:07 - My Orders Last 24 Hours: My Active Orders 09/18/19 07:54 Sodium Chloride 0.9% [Normal Saline] 1,000 ml IV .BOLUS 09/18/19 07:55 Peripheral IV Care [RC] . DIRECTED Sodium Chloride 0.9% [Saline Flush] 10 ml FLUSH Q8HR PRN Peripheral IV Insertion Adult [OM.PC] Routine 09/18/19 08:06 LORazepam [Ativan] 0.5 mg PO ONETIME ONE Ondansetron [Zofran ODT] 4 mg PO ONETIME ONE - Assessment/Plan Last 24 Hours: My Active Orders 09/18/19 07:54 Sodium Chloride 0.9% [Normal Saline] 1,000 ml IV .BOLUS 09/18/19 07:55 Peripheral IV Care [RC] . DIRECTED Sodium Chloride 0.9% [Saline Flush] 10 ml FLUSH Q8HR PRN Peripheral IV Insertion Adult [OM.PC] Routine 09/18/19 08:06 LORazepam [Ativan] 0.5 mg PO ONETIME ONE Ondansetron [Zofran ODT] 4 mg PO ONETIME ONE
== END 2019-09-18 08:14 | disposition home or self-care (01) ==
LOC: KA.ED 07:25
DX: G89.18 Other acute postprocedural pain (principal); R11.2 Nausea with vomiting, unspecified; Z88.5 Allergy status to narcotic agent; Z88.8 Allergy status to other drugs, medicaments and biological substances; F41.9 Anxiety disorder, unspecified; F32.9 Major depressive disorder, single episode, unspecified; Z79.899 Other long term (current) drug therapy
CPT/HCPCS: 99283; A9270-GY; J2405; J7030

== ENCOUNTER 2020-02-27 07:11 | Emergency (ER) | payer MEDICAID ==
--- NOTE | 2020-02-27 07:43 | EDM.PDOC ---
ED HPI GENERAL MEDICAL PROBLEM - General Chief Complaint: Back Pain or Injury Stated Complaint: lower back/legs/feet pain Time Seen by Provider: 02/27/20 07:35 Source of Information: Reports: Patient History Limitations: Reports: No Limitations - History of Present Illness INITIAL COMMENTS - FREE TEXT/NARRATIVE: Patient is a 34-year-old female who presents to the emergency department via private vehicle this morning with a complaint of low back pain. Patient states pain began approximately 3 days ago after moving some furniture at her home. She states at the time of action she did not feel discomfort. However pain has been building since then and progressed to thighs of both lower extremities. Patient does have a long history of back pain. Patient underwent MRI on 01/15/2020, results showed stable postsurgical changes of lumbar fusion with no evidence of central canal stenosis or neural foraminal compromise. Patient denies chest pain, shortness of breath, fever, abdominal pain, nausea, vomiting, diarrhea, saddle anesthesia, urinary or bowel incontinence. Onset: Gradual Duration: Day(s): Location: Reports: Back Quality: Reports: Ache Severity: Moderate Improves with: Reports: None Worsens with: Reports: Movement Context: Reports: Activity Associated Symptoms: Reports: No Other Symptoms. Denies: Chest Pain, Diaphoresis, Fever/Chills, Nausea/Vomiting, Shortness of Breath - Related Data Allergies Allergy/AdvReac Type Severity Reaction Status Date / Time celecoxib [From Celebrex] Allergy Unknown Hives Verified 02/27/20 07:23 fentanyl Allergy Nausea and Verified 02/27/20 07:23 Vomiting tramadol Allergy Hives Verified 02/27/20 07:23 Home Meds: Home Meds busPIRone [Buspar] 20 mg PO BID 06/13/17 [History] tiZANidine [Zanaflex] 4 mg PO BEDTIME 08/30/17 [History] ARIPiprazole [Abilify] 10 mg PO BID 04/15/19 [History] Topiramate 50 mg PO BEDTIME 04/15/19 [History] Dextroamphetamine/Amphetamine [Adderall 10 mg Tablet] 15 mg PO BID 09/01/19 [History] ALPRAZolam [ALPRAZolam ODT] 0.25 mg PO ONETIME PRN 02/27/20 [History] Albuterol Sulfate [Proair Hfa] 1 - 2 puff IH Q4H PRN 02/27/20 [History] Albuterol/Ipratropium [DuoNeb 3.0-0.5 MG/3 ML] 3 ml INH TID PRN 02/27/20 [History] Cholecalciferol (Vitamin D3) [Vitamin D3] 1,000 unit PO DAILY 02/27/20 [History] Clobetasol [Clobetasol Propionate 0.05%] 1 applic TOP BID 02/27/20 [History] DULoxetine [Cymbalta] 60 mg PO DAILY 02/27/20 [History] Gabapentin [Neurontin] 300 mg PO TID 02/27/20 [History] Meclizine [Antivert] 12.5 mg PO Q4H PRN 02/27/20 [History] Meloxicam [Mobic] 15 mg PO DAILY #30 tab 02/27/20 [Rx] Ondansetron [Zofran ODT] 4 mg PO Q6H PRN 02/27/20 [History] Pantoprazole [ProTONIX] 40 mg PO DAILY 02/27/20 [History] Simethicone [Gas-X] 125 mg PO TID PRN 02/27/20 [History] hydrOXYzine HCL [Hydroxyzine HCl] 25 mg PO QID PRN 02/27/20 [History] methocarbamoL [Robaxin-750] 750 mg PO BID #28 tablet 02/27/20 [Rx] Past Medical History - Past Health History Medical/Surgical History: Denies Medical/Surgical History HEENT History: Reports: None, Other (See Below) Other HEENT History: glasses Cardiovascular History: Reports: None Respiratory History: Reports: None Gastrointestinal History: Reports: None Genitourinary History: Reports: UTI, Recurrent 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 feels look like ringworm; have been biopsied by Dr. Pantoja. - Infectious Disease History Infectious Disease History: Reports: MRSA - Past Surgical History GI Surgical History: Reports: Appendectomy, Cholecystectomy, Colonoscopy, EGD Female Surgical History: Reports: Hysterectomy Neurological Surgical History: Reports: Lumbar Spine Musculoskeletal Surgical History: Reports: Other (See Below) Other Musculoskeletal Surgeries/Procedures:: Back surgery 06/20; knee surgery Social & Family History - Family History Family Medical History: Noncontributory - Caffeine Use Caffeine Use: Reports: Coffee, Energy Drinks Other Caffeine Use: monsters - 2 per day - Living Situation & Occupation Living situation: Reports: Single ED ROS GENERAL - Review of Systems Review Of Systems: Comprehensive ROS is negative, except as noted in HPI. Constitutional: Reports: No Symptoms HEENT: Reports: No Symptoms Respiratory: Reports: No Symptoms Cardiovascular: Reports: No Symptoms Endocrine: Reports: No Symptoms GI/Abdominal: Reports: No Symptoms. Denies: Abdominal Pain : Reports: No Symptoms. Denies: Flank Pain Musculoskeletal: Reports: Back Pain (Lumbar sacral) Skin: Reports: No Symptoms Neurological: Reports: No Symptoms Psychiatric: Reports: No Symptoms Hematologic/Lymphatic: Reports: No Symptoms Immunologic: Reports: No Symptoms ED EXAM,LOWER BACK PAIN/INJURY - Physical Exam Exam: See Below Exam Limited By: No Limitations General Appearance: Alert, WD/WN, No Apparent Distress Throat/Mouth: Normal Inspection, Normal Oropharynx, No Airway Compromise Head: Atraumatic, Normocephalic Neck: Normal Inspection, Supple, Non-Tender, Full Range of Motion Respiratory/Chest: No Respiratory Distress, Lungs Clear, Normal Breath Sounds, No Accessory Muscle Use, Chest Non-Tender Cardiovascular: Regular Rate, Rhythm, No Murmur GI/Abdominal: Normal Bowel Sounds, Soft, Non-Tender, No Organomegaly, No Distention, No Abnormal Bruit, No Mass, Pelvis Stable Back Exam: Decreased Range of Motion, Paraspinal Tenderness (Bilateral lumbar). No: CVA Tenderness (L), CVA Tenderness (R) Extremities: Normal Inspection, Normal Range of Motion, No Pedal Edema, Normal Capillary Refill Neurological: Alert, Normal Mood/Affect, Normal Dorsiflexion, Normal Plantar Flexion, No Motor/Sensory Deficits, Oriented x 3 Psychiatric: Normal Affect, Normal Mood Skin Exam: Warm, Dry, Intact, Normal Color, No Rash Course - Orders/Labs/Meds Orders: Active Orders 24 hr Category Date Time Status Ketorolac [Toradol] Med 02/27/20 07:36 Once 60 mg IM ONETIME ONE dexAMETHasone [Dexamethasone] Med 02/27/20 07:36 Once 8 mg IM ONETIME ONE - Re-Assessments/Exams Free Text/Narrative Re-Assessment/Exam: 02/27/20 07:58 Patient afebrile, vital signs stable, nontoxic appearing, pain mostly relieved. Patient will follow-up with PCP Departure - Departure Time of Disposition: 07:59 Disposition: Home, Self-Care 01 Clinical Impression: Chronic back pain Qualifiers: Back pain location: low back pain Back pain laterality: left Sciatica presence: with sciatica Sciatica laterality: sciatica of left side Qualified Code(s): M54.42 - Lumbago with sciatica, left side - Discharge Information Instructions: Chronic Back Pain, [id number], What You Need to Know About Chronic Back Pain, Lumbosacral Radiculopathy Referrals: Nola Bardales MD [Primary Care Provider] - Forms: ED Department Discharge Additional Instructions: Follow-up at [facility] in 2 days. Return to emergency department sooner if symptoms continue or worsen. Take medication as directed. - My Orders Last 24 Hours: My Active Orders 02/27/20 07:36 Ketorolac [Toradol] 60 mg IM ONETIME ONE dexAMETHasone [Dexamethasone] 8 mg IM ONETIME ONE - Assessment/Plan Last 24 Hours: My Active Orders 02/27/20 07:36 Ketorolac [Toradol] 60 mg IM ONETIME ONE dexAMETHasone [Dexamethasone] 8 mg IM ONETIME ONE Assessment:: Chronic low back pain Plan: Follow-up with PCP
[2020-02-27] MEDS: Ketorolac 60 MG/2 ML SDV IM ONE (07:52)
[2020-02-27] MEDS: Dexamethasone 10 MG/ML SDV IM ONE (07:53)
[2020-02-27 07:59] VITALS: BP 123/78; PULSE 90
== END 2020-02-27 08:11 | disposition home or self-care (01) ==
LOC: KA.ED 07:11
DX: M54.42 Lumbago with sciatica, left side (principal); F41.9 Anxiety disorder, unspecified; F32.9 Major depressive disorder, single episode, unspecified; Z88.6 Allergy status to analgesic agent; Z88.5 Allergy status to narcotic agent; Z79.899 Other long term (current) drug therapy
CPT/HCPCS: 96372; 99283; J1100; J1885

== ENCOUNTER 2020-08-03 08:16 | Emergency (ER) | payer MEDICAID ==
[2020-08-03 08:32] VITALS: BP 114/80; PULSE 84
--- NOTE | 2020-08-03 09:33 | EDM.PDOC ---
ED HPI GENERAL MEDICAL PROBLEM - General Chief Complaint: Upper Extremity Injury/Pain Stated Complaint: RIGHT ARM PAIN Time Seen by Provider: 08/03/20 08:30 Source of Information: Reports: Patient, RN History Limitations: Reports: No Limitations - History of Present Illness INITIAL COMMENTS - FREE TEXT/NARRATIVE: 35 yo presents to the emergency room with complaints of right shoulder and arm pain. She reports increasing pain and discomfort over the last several days in her right shoulder. She reports that she is having numbness and tingling rating all the way down into her long and ring finger. She has an EMG scheduled on August 07. She is followed by Dr. Angelo orthopedic trauma surgeon for her right shoulder. She status post ORIF right humerus approximately 1 year ago for an injury. She notices some pain and discomfort with movement of the shoulder. She denies significant weakness. She denies any current neck pain or prior radiculopathy in her neck. She does have some underlying history of back problems. 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, Other Medication(s) Right Upper Arm Pain Score (Numeric/FACES): 7 - Related Data Allergies Allergy/AdvReac Type Severity Reaction Status Date / Time celecoxib [From Celebrex] Allergy Unknown Hives Verified 08/03/20 08:32 fentanyl Allergy Nausea and Verified 08/03/20 08:32 Vomiting tramadol Allergy Hives Verified 08/03/20 08:32 Home Meds: Home Meds busPIRone [Buspar] 20 mg PO BID 06/13/17 [History] tiZANidine [Zanaflex] 4 mg PO BEDTIME PRN 08/30/17 [History] ARIPiprazole [Abilify] 5 mg PO BID 04/15/19 [History] Topiramate 25 mg PO BEDTIME 04/15/19 [History] Dextroamphetamine/Amphetamine [Adderall 10 mg Tablet] 15 mg PO BID 09/01/19 [History] ALPRAZolam [ALPRAZolam ODT] 0.25 mg PO DAILY PRN 02/27/20 [History] Albuterol Sulfate [Proair Hfa] 1 - 2 puff IH Q4H PRN 02/27/20 [History] Albuterol/Ipratropium [DuoNeb 3.0-0.5 MG/3 ML] 3 ml INH TID PRN 02/27/20 [History] Cholecalciferol (Vitamin D3) [Vitamin D3] 1,000 unit PO DAILY 02/27/20 [History] Clobetasol [Clobetasol Propionate 0.05%] 1 applic TOP BID 02/27/20 [History] DULoxetine [Cymbalta] 60 mg PO DAILY 02/27/20 [History] Gabapentin [Neurontin] 300 mg PO TID 02/27/20 [History] Meclizine [Antivert] 12.5 mg PO Q4H PRN 02/27/20 [History] Ondansetron [Zofran ODT] 4 mg PO Q6H PRN 02/27/20 [History] Pantoprazole [ProTONIX] 40 mg PO DAILY 02/27/20 [History] Simethicone [Gas-X] 125 mg PO TID PRN 02/27/20 [History] hydrOXYzine HCL [Hydroxyzine HCl] 25 mg PO QID PRN 02/27/20 [History] Past Medical History - Past Health History Medical/Surgical History: Denies Medical/Surgical History HEENT History: Reports: None Other HEENT History: glasses Cardiovascular History: Reports: None Respiratory History: Reports: Other (See Below) Other Respiratory History: tobacco abuse Gastrointestinal History: Reports: None Genitourinary History: Reports: UTI, Recurrent 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 feels look like ringworm; have been biopsied by Dr. Pantoja. - Infectious Disease History Infectious Disease History: Reports: MRSA, Other (See Below) Other Infectious Disease History: Hepatitis C carrier - Past Surgical History Head Surgeries/Procedures: Reports: None Cardiovascular Surgical History: Reports: None Respiratory Surgical History: Reports: None GI Surgical History: Reports: Appendectomy, Cholecystectomy, Colonoscopy, EGD Female Surgical History: Reports: Hysterectomy Neurological Surgical History: Reports: Lumbar Spine Other Neurological Surgeries/Procedures: lumbar fusion x2, 3 other surgeries to back. Unable to recall what type at this time. First surgery at age 14. Musculoskeletal Surgical History: Reports: Other (See Below) Other Musculoskeletal Surgeries/Procedures:: Back surgery 06/20; knee surgery, daniel to right upper arm 08/2019 Dermatological Surgical History: Reports: None Social & Family History - Family History Family Medical History: No Pertinent Family History - Caffeine Use Caffeine Use: Reports: Coffee, Energy Drinks Other Caffeine Use: monsters - 2 per day - Living Situation & Occupation Living situation: Reports: Single Review of Systems - Review of Systems Review Of Systems: Comprehensive ROS is negative, except as noted in HPI. ED EXAM, GENERAL - Physical Exam Exam: See Below Free Text/Narrative:: Female is alert oriented, no acute distress, nontoxic-appearing Exam Limited By: No Limitations General Appearance: Alert, No Apparent Distress, Obese Eye Exam: Bilateral Eye: EOMI Ears: Hearing Grossly Normal Nose: Normal Inspection Throat/Mouth: Normal Voice, No Airway Compromise Head: Atraumatic, Normocephalic Neck: Normal Inspection, Supple, Non-Tender, Full Range of Motion Respiratory/Chest: No Respiratory Distress Extremities: Normal Inspection, Normal Range of Motion, Arm Pain, Other (Has a well-healed longitudinal incision approximately 10 cm in length consistent with prior ORIF of her right humerus. She has full finger wrist forearm elbow range of motion shoulder motion is about 170 degrees of flexion 160 of abduction passive external rotation is 80 internal rotation is 45. Rotator cuff strength is 5 out of 5 in all planes. Motor strength upper extremities are 5 out of 5 with finger abduction wrist extension biceps triceps and shoulder abduction. Deep tendon reflexes are physiologic symmetric 2+ biceps triceps and brachial radialis Amado's is negative. Intact sensation to light touch. Phalen's and Tinel's at the wrist and elbow are negative.) Neurological: Alert, Oriented, CN II-XII Intact, No Motor/Sensory Deficits Psychiatric: Normal Affect, Normal Mood Skin Exam: Warm, Dry, Intact, Normal Color, No Rash, Tattoo(s), Wound/Incision (Healed) Lymphatic: No Adenopathy Course - Vital Signs Last Recorded V/S: Last Vital Signs Temp 96.4 F L 08/03/20 08:27 Pulse 84 08/03/20 08:27 Resp 16 08/03/20 08:27 BP 114/80 08/03/20 08:27 Pulse Ox 96 08/03/20 08:27 - Orders/Labs/Meds Orders: Active Orders 24 hr Category Date Time Status Cervical Spine 2V or 3V [CR] Stat Exams 08/03/20 09:14 Ordered Humerus Rt [CR] Stat Exams 08/03/20 08:49 Ordered Meds: Medications Discontinued Medications Generic Name Dose Route Start Last Admin Trade Name Ana Luisa PRN Reason Stop Dose Admin Ketorolac Tromethamine 60 mg 08/03/20 09:40 Toradol IM 08/03/20 09:41 ONETIME ONE - Radiology Interpretation Free Text/Narrative:: X-rays right humerus Discussion/Impression: X-ray cervical spine Discussion/Impression: Departure - Departure Time of Disposition: 10:00 Disposition: Home, Self-Care 01 Condition: Good Clinical Impression: Pain in right upper arm, Numbness and tingling of right arm, History of open reduction and internal fixation (ORIF) procedure Humerus shaft fracture Qualifiers: Encounter type: sequela Fracture type: closed Fracture morphology: oblique Fracture alignment: nondisplaced Laterality: right Qualified Code(s): S42.334S - Nondisplaced oblique fracture of shaft of humerus, right arm, sequela - Discharge Information Instructions: Paresthesia, [id number], Humerus Fracture With Rehab-SportsMed Referrals: Nola Bardales MD [Primary Care Provider] - Forms: ED Department Discharge Additional Instructions: 1. Toradol 60 mg IM given today. You may begin NSAID protocol tomorrow, ibuprofen 800 mg 3 times daily with food as needed 2. You have an EMG scheduled August 07 with follow-up with your orthopedist Dr. Angelo. 3. Your x-rays of your right humerus are healed and x-rays of the cervical spine look unremarkable. Further studies and work-up dependent on your follow- up with Dr. Angelo. Sepsis Event Note (ED) - Evaluation Sepsis Screening Result: No Definite Risk - Focused Exam Vital Signs: Vital Signs Temp Pulse Resp BP Pulse Ox 08/03/20 08:27 96.4 F L 84 16 114/80 96 - My Orders Last 24 Hours: My Active Orders 08/03/20 08:49 Humerus Rt [CR] Stat 08/03/20 09:14 Cervical Spine 2V or 3V [CR] Stat - Assessment/Plan Last 24 Hours: My Active Orders 08/03/20 08:49 Humerus Rt [CR] Stat 08/03/20 09:14 Cervical Spine 2V or 3V [CR] Stat Assessment:: 1. Pain in the right upper extremity. 2. Numbness right upper extremity. 3. S/P ORIF right humerus fracture healed Plan: 1. Toradol 60 mg IM given today. You may begin NSAID protocol tomorrow, ibuprofen 800 mg 3 times daily with food as needed 2. You have an EMG scheduled August 07 with follow-up with your orthopedist Dr. Angelo. 3. Your x-rays of your right humerus are healed and x-rays of the cervical spine look unremarkable. Further studies and work-up dependent on your follow- up with Dr. Angelo.
[2020-08-03] MEDS: Ketorolac 60 MG/2 ML SDV IM ONE (09:49)
--- NOTE | 2020-08-03 10:18 | CR ---
[id number] RAD/RAD Humerus Right 2V Exam: RAD Humerus Right 2V Indication:ARM PAIN. Comparison: No prior imaging for comparison. Discussion/Impression: Postsurgical change from fracture ORIF with fixation plate and numerous fixation screws. Hardware is intact. No evidence of loosening or infection. Fracture demonstrates a chronic healed appearance. No acute fracture. Rui Salgado MD 08/03/20 1017 Thank you for allowing us to participate in the care of your patient.
--- NOTE | 2020-08-03 10:19 | CR ---
[id number] RAD/RAD Cervical Spine 2-3V Exam: RAD Cervical Spine 2-3V Indication:RIGHT ARM PAIN. Comparison: August 2018. Discussion/Impression: Vertebral bodies in normal alignment. No fracture, AVN, or erosive changes. Disc spaces are well-preserved. Bone mineralization is normal. Rui Salgado MD 08/03/20 1018 Thank you for allowing us to participate in the care of your patient.
== END 2020-08-03 10:00 | disposition home or self-care (01) ==
LOC: KA.ED 08:16
DX: S42.334 Nondisplaced oblique fracture of shaft of humerus, right arm (principal); R20.0 Anesthesia of skin; M79.621 Pain in right upper arm; F31.9 Bipolar disorder, unspecified; F41.9 Anxiety disorder, unspecified; Z88.8 Allergy status to other drugs, medicaments and biological substances; Z88.4 Allergy status to anesthetic agent; Z88.5 Allergy status to narcotic agent; Z79.899 Other long term (current) drug therapy; Z98.890 Other specified postprocedural states; X58.XXXS Exposure to other specified factors, sequela
CPT/HCPCS: 72040; 73060-RT; 96372; 99283-25; 99284; J1885

== ENCOUNTER 2020-08-29 02:25 | Emergency (ER) | payer MEDICAID ==
[2020-08-29] MEDS ORDERED: ARIPiprazole 5 MG Tab PO ONE (02:51)
--- NOTE | 2020-08-29 02:51 | EDM.PDOC ---
ED HPI GENERAL MEDICAL PROBLEM - General Chief Complaint: General Stated Complaint: ran out of psych meds Time Seen by Provider: 08/29/20 02:25 Source of Information: Reports: Patient History Limitations: Reports: No Limitations - History of Present Illness INITIAL COMMENTS - FREE TEXT/NARRATIVE: Vane, 35-year-old female, presents stating she is feeling "zingers in her head" as she is exhausted her BuSpar and Cymbalta medication. She states "The Holidays have messed up her ability for appointments and communication with pharmacy". States she has been doing well and contacted her provider at [facility] for update on medication. Review of [facility] shows communication was made regarding her Abilify dosing but I do not see that any request was made for medications that were presumably filled 07/20/2020, as comments were made that on the 18 August 2020 she was not taking those medications. Extensive psychiatric history does play a part in the accuracy of her story. Onset: Today Duration: Week(s):, Chronic Location: Reports: Head Associated Symptoms: Reports: No Other Symptoms - Related Data Allergies Allergy/AdvReac Type Severity Reaction Status Date / Time celecoxib [From Celebrex] Allergy Unknown Hives Verified 08/29/20 02:43 fentanyl Allergy Nausea and Verified 08/29/20 02:43 Vomiting tramadol Allergy Hives Verified 08/29/20 02:43 Home Meds: Home Meds busPIRone [Buspar] 20 mg PO BID 06/13/17 [History] tiZANidine [Zanaflex] 4 mg PO BEDTIME PRN 08/30/17 [History] ARIPiprazole [Abilify] 5 mg PO BID 04/15/19 [History] Topiramate 25 mg PO BEDTIME 04/15/19 [History] Dextroamphetamine/Amphetamine [Adderall 10 mg Tablet] 15 mg PO BID 09/01/19 [History] ALPRAZolam [ALPRAZolam ODT] 0.25 mg PO DAILY PRN 02/27/20 [History] Albuterol Sulfate [Proair Hfa] 1 - 2 puff IH Q4H PRN 02/27/20 [History] Albuterol/Ipratropium [DuoNeb 3.0-0.5 MG/3 ML] 3 ml INH TID PRN 02/27/20 [History] Cholecalciferol (Vitamin D3) [Vitamin D3] 1,000 unit PO DAILY 02/27/20 [History] Clobetasol [Clobetasol Propionate 0.05%] 1 applic TOP BID 02/27/20 [History] DULoxetine [Cymbalta] 60 mg PO DAILY 02/27/20 [History] Gabapentin [Neurontin] 300 mg PO TID 02/27/20 [History] Meclizine [Antivert] 12.5 mg PO Q4H PRN 02/27/20 [History] Ondansetron [Zofran ODT] 4 mg PO Q6H PRN 02/27/20 [History] Pantoprazole [ProTONIX] 40 mg PO DAILY 02/27/20 [History] Simethicone [Gas-X] 125 mg PO TID PRN 02/27/20 [History] hydrOXYzine HCL [Hydroxyzine HCl] 25 mg PO QID PRN 02/27/20 [History] ARIPiprazole [Abilify] 10 mg PO DAILY 7 Days #7 tab 08/29/20 [Rx] DULoxetine [Cymbalta] 60 mg PO DAILY 7 Days #7 cap 08/29/20 [Rx] busPIRone [Buspar] 20 mg PO BID #14 tablet 08/29/20 [Rx] Past Medical History - Past Health History Medical/Surgical History: Denies Medical/Surgical History HEENT History: Reports: None Other HEENT History: glasses Cardiovascular History: Reports: None Respiratory History: Reports: Other (See Below) Other Respiratory History: tobacco abuse Gastrointestinal History: Reports: None Genitourinary History: Reports: UTI, Recurrent 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 feels look like ringworm; have been biopsied by Dr. Rup. - Infectious Disease History Infectious Disease History: Reports: MRSA, Other (See Below) Other Infectious Disease History: Hepatitis C carrier - Past Surgical History Head Surgeries/Procedures: Reports: None Cardiovascular Surgical History: Reports: None Respiratory Surgical History: Reports: None GI Surgical History: Reports: Appendectomy, Cholecystectomy, Colonoscopy, EGD Female Surgical History: Reports: Hysterectomy Neurological Surgical History: Reports: Lumbar Spine Other Neurological Surgeries/Procedures: lumbar fusion x2, 3 other surgeries to back. Unable to recall what type at this time. First surgery at age 14. Musculoskeletal Surgical History: Reports: Other (See Below) Other Musculoskeletal Surgeries/Procedures:: Back surgery 06/20; knee surgery, daniel to right upper arm 08/2019 Dermatological Surgical History: Reports: None Social & Family History - Family History Family Medical History: No Pertinent Family History - Caffeine Use Caffeine Use: Reports: Coffee, Energy Drinks Other Caffeine Use: monsters - 2 per day - Living Situation & Occupation Living situation: Reports: Single ED ROS GENERAL - Review of Systems Review Of Systems: Comprehensive ROS is negative, except as noted in HPI. ED EXAM, GENERAL - Physical Exam Exam: See Below Free Text/Narrative:: Alert, oriented, and converses freely with no apparent anxiety. She denies any thoughts of harm. HEENT is negative discharge or deformity, there pink moist mucous membranes, She is able to speak in a rational tone explaining her situation of exhaustion of medication. Neck is soft supple no rigidity is appreciated. Thorax is clear throughout with no wheezes nor crackles. Cardiac is regular there is correlating radial pulse with apical heart rate. Discussion on medication aspects and compliance, and her need for follow-up. Course - Orders/Labs/Meds Orders: Active Orders 24 hr Category Date Time Status busPIRone [Buspar] Med 08/29/20 03:00 Active 60 mg PO BID Medication Orders Buspirone HCl (Buspar) 60 mg PO BID RONAK Last Admin: 08/29/20 03:16 Dose: 20 mg Documented by: CHANDU Meds: Medications Generic Name Dose Route Start Last Admin Trade Name Freq PRN Reason Stop Dose Admin Buspirone HCl 60 mg 08/29/20 03:00 08/29/20 03:16 Buspar PO 20 mg BID RONAK Administration Discontinued Medications Generic Name Dose Route Start Last Admin Trade Name Freq PRN Reason Stop Dose Admin Aripiprazole 15 mg 08/29/20 02:51 08/29/20 03:15 Abilify PO 08/29/20 02:52 5 mg ONETIME ONE Administration Duloxetine HCl 120 mg 08/29/20 02:52 08/29/20 03:16 Cymbalta PO 08/29/20 02:53 60 mg ONETIME ONE Administration - Re-Assessments/Exams Free Text/Narrative Re-Assessment/Exam: In review of [facility] One chart link, shows that there was an office visit with refill of Abilify 19 August. Phone calls with messages on the and regarding medications and dosing. It also reveals that she acknowledged not taking any medications during a conversation on the as medications were listed as the BuSpar and Cymbalta not being taken at that time. In the conversation with Vane she states that she exhausted her medications on Tuesday, 25 August 2020. There seems to be of large deficit in her ability to provide accuracy of her medical issues. 08/29/20 03:34 Departure - Departure Time of Disposition: 03:13 Disposition: Home, Self-Care 01 Condition: Fair Clinical Impression: Bipolar 1 disorder with moderate ihasn, Anxiety Depression Qualifiers: Major depression recurrence: recurrent Active/Remission status: in partial remission - Discharge Information *PRESCRIPTION DRUG MONITORING PROGRAM REVIEWED*: Not Applicable *COPY OF PRESCRIPTION DRUG MONITORING REPORT IN PATIENT JAMES: Not Applicable Prescriptions: ARIPiprazole [Abilify] 10 mg PO DAILY 7 Days #7 tab busPIRone [Buspar] 20 mg PO BID #14 tablet DULoxetine [Cymbalta] 60 mg PO DAILY 7 Days #7 cap Referrals: Nola Bardales MD [Primary Care Provider] - Forms: ED Department Discharge Additional Instructions: We have provided you this morning with Cymbalta, BuSpar, and Abilify, to last until Tuesday when your pharmacy opens. There is a prescription at your pharmacy for 1 week of each until you are able to get your [place] provider Ivette Gonzalez to send updated prescriptions. You need to take your medications as directed and follow-up at least in phone communication with the department. You need to quit using energy drinks and any other form of stimulants as they do not coincide with anxiety/bipolar diagnosis. They have a tendency to increase your anxiety and/or ihsan. Increase your fluid intake and eat healthy well-balanced diet. Call your psychiatry office Tuesday morning to discuss with them. - Problem List & Annotations (1) Bipolar 1 disorder with moderate ihsan Status: Chronic Priority: Medium (2) Anxiety SNOMED Code(s): 98263537 Code(s): F41.9 - ANXIETY DISORDER, UNSPECIFIED Status: Chronic Priority: Medium (3) Depression SNOMED Code(s): 41176332 Code(s): F32.9 - MAJOR DEPRESSIVE DISORDER, SINGLE EPISODE, UNSPECIFIED Status: Chronic Priority: Medium Qualifiers: Major depression recurrence: recurrent Active/Remission status: in partial remission - Problem List Review Problem List Initiated/Reviewed/Updated: Yes - My Orders Last 24 Hours: My Active Orders 08/29/20 03:00 busPIRone [Buspar] 60 mg PO BID - Assessment/Plan Last 24 Hours: My Active Orders 08/29/20 03:00 busPIRone [Buspar] 60 mg PO BID Plan: We have provided you this morning with Cymbalta, BuSpar, and Abilify, to last until Tuesday when your pharmacy opens. There is a prescription at your pharmacy for 1 week of each until you are able to get your [place] provider Ivette Gonzalez to send updated prescriptions. You need to take your medications as directed and follow-up at least in phone communication with the department. You need to quit using energy drinks and any other form of stimulants as they do not coincide with anxiety/bipolar diagnosis. They have a tendency to increase your anxiety and/or ihsan. Increase your fluid intake and eat healthy well-balanced diet. Call your psychiatry office Tuesday morning to discuss with them.
[2020-08-29] MEDS ORDERED: DULoxetine 30 MG Cap PO ONE (02:52)
[2020-08-29] MEDS ORDERED: busPIRone 5 MG Tab PO SCH (03:00)
[2020-08-29 05:10] VITALS: BP 119/85; PULSE 98
== END 2020-08-29 03:35 | disposition home or self-care (01) ==
LOC: KA.ED 02:25
DX: F33.41 Major depressive disorder, recurrent, in partial remission (principal); F41.9 Anxiety disorder, unspecified; Z88.1 Allergy status to other antibiotic agents; Z88.5 Allergy status to narcotic agent; Z79.899 Other long term (current) drug therapy
CPT/HCPCS: 99283; 99284; A9270-GY

== ENCOUNTER 2021-10-25 10:35 | Emergency (ER) | payer MEDICAID ==
[2021-10-25 10:53] VITALS: BP 110/85; PULSE 98
[2021-10-25] MEDS ORDERED: Acetaminophen/HYDROcodone 325-10 MG Tab PO ONE (11:31)
[2021-10-25] MEDS ORDERED: methylPREDNISolone Sodium Succinate 125 MG/2 ML SDV IM ONE (11:31)
== END 2021-10-25 11:52 | disposition home or self-care (01) ==
LOC: KA.ED 10:35
DX: M54.42 Lumbago with sciatica, left side (principal); E66.9 Obesity, unspecified; Z68.41 Body mass index [BMI] 40.0-44.9, adult; Z88.5 Allergy status to narcotic agent; Z88.8 Allergy status to other drugs, medicaments and biological substances; Z79.899 Other long term (current) drug therapy; Z72.0 Tobacco use
CPT/HCPCS: 96372; 99283; 99284; A9270-GY; J2930

== ENCOUNTER 2022-01-09 16:56 | Emergency (ER) | payer OTHER, MEDICAID ==
[2022-01-09] MEDS ORDERED: LORazepam 2 MG/ML SDV ONE (17:17)
[2022-01-09] MEDS ORDERED: HYDROmorphone 1 MG/ML Syringe ONE (17:17)
[2022-01-09] MEDS: LORazepam 2 MG/ML SDV IVPUSH ONE ×2 (17:20→17:55)
[2022-01-09] MEDS ORDERED: HYDROmorphone 1 MG/ML Syringe IVPUSH ONE ×2 (17:20→18:33)
[2022-01-09 18:25] LABS: ANION GAP 14.9 mmol/L (5-15); CHLORIDE,CL 104 mmol/L (98-107); SODIUM,NA 139 mmol/L (136-145)
[2022-01-09] MEDS ORDERED: Lidocaine 1% with EPINEPHrine 1:100,000 10 ML MDV ONE (19:39)
[2022-01-09] MEDS ORDERED: Lidocaine 1% with EPINEPHrine 1:100,000 10 ML MDV INJECT ONE (19:45)
[2022-01-09] MEDS ORDERED: Bacitracin/Neomycin/Polymyxin B Oint 0.9 GM U/D Packet ONE (19:46)
[2022-01-09] MEDS ORDERED: Bacitracin Oint 30 GM Tube TOP ONE (20:30)
[2022-01-09] MEDS ORDERED: Diphtheria,Pertussis(Acell),Tetanus Vaccine 0.5 ML Syringe IM ONE (21:36)
[2022-01-09] MEDS ORDERED: Acetaminophen/HYDROcodone 325-10 MG Tab PO ONE (21:38)
[2022-01-10 01:00] VITALS: BP 118/84; PULSE 70
== END 2022-01-09 22:10 | disposition home or self-care (01) ==
LOC: KA.ED 16:56
DX: S01.111A Laceration without foreign body of right eyelid and periocular area, initial encounter (principal); E66.9 Obesity, unspecified; Z68.34 Body mass index [BMI] 34.0-34.9, adult; Z88.5 Allergy status to narcotic agent; Z88.8 Allergy status to other drugs, medicaments and biological substances; Z23 Encounter for immunization; Z79.899 Other long term (current) drug therapy; V53.5XXA Driver of pick-up truck or van injured in collision with car, pick-up truck or van in traffic accident, initial encounter; Y92.410 Unspecified street and highway as the place of occurrence of the external cause
CPT/HCPCS: 12004; 12015; 36415; 70450; 72125; 72128; 72131; 80048; 85025; 90471; 90715; 96374; 96375; 96376; 99284; 99284-25; A9270-GY; J1170; J2060

== ENCOUNTER 2022-01-23 16:00 | Emergency (ER) | payer OTHER, MEDICAID ==
[2022-01-23 16:13] VITALS: BP 124/86; PULSE 97
== END 2022-01-23 17:00 | disposition home or self-care (01) ==
LOC: KA.ED 16:00
DX: M25.562 Pain in left knee (principal); E66.9 Obesity, unspecified; Z68.33 Body mass index [BMI] 33.0-33.9, adult; Z88.5 Allergy status to narcotic agent; Z88.8 Allergy status to other drugs, medicaments and biological substances
CPT/HCPCS: 73562-LT; 99283; 99283-25

== ENCOUNTER 2022-03-23 19:10 | Emergency (ER) | payer MEDICAID ==
[2022-03-23 19:26] VITALS: BP 110/91; PULSE 93
[2022-03-23] MEDS ORDERED: Acetaminophen/HYDROcodone 325-5 MG Tab PO ONE (19:49)
[2022-03-23] MEDS: Cyclobenzaprine 10 MG Tab PO ONE ×2 (20:04→20:05)
== END 2022-03-23 20:08 | disposition home or self-care (01) ==
LOC: KA.ED 19:10
DX: M54.41 Lumbago with sciatica, right side (principal); E66.9 Obesity, unspecified; Z68.23 Body mass index [BMI] 23.0-23.9, adult; Z88.5 Allergy status to narcotic agent; Z88.8 Allergy status to other drugs, medicaments and biological substances; Z79.899 Other long term (current) drug therapy
CPT/HCPCS: 99283; A9270-GY

== ENCOUNTER 2022-09-19 06:40 | Emergency (ER) | payer MEDICAID, OTHER ==
[2022-09-19] MEDS ORDERED: Sodium Chloride 0.9% 10 ML Syringe FLUSH PRN (06:52)
[2022-09-19] MEDS: Ondansetron 4 MG/2 ML SDV IVPUSH ONE (07:10)
[2022-09-19 08:09] LABS: ANION GAP 13.8 mmol/L (5-15)
[2022-09-19] MEDS: Morphine 2 MG/ML SYRINGE IVPUSH ONE (08:12)
[2022-09-19] MEDS: Sodium Chloride 0.9% 1,000 ML IV ONE (09:03)
[2022-09-19 09:11] VITALS: BP 82/51; PULSE 66
[2022-09-19] MEDS: Iopamidol 755 Mg/ML 75 ML Bottle IVPUSH ONE (09:35)
[2022-09-19] MEDS: Sodium Chloride 0.9% 50 ML IV SCH (09:35)
== END 2022-09-19 10:20 | disposition home or self-care (01) ==
LOC: KA.ED 06:40
DX: K76.0 Fatty (change of) liver, not elsewhere classified (principal); R74.8 Abnormal levels of other serum enzymes; E66.9 Obesity, unspecified; Z68.39 Body mass index [BMI] 39.0-39.9, adult; Z72.0 Tobacco use; Z88.1 Allergy status to other antibiotic agents; Z88.6 Allergy status to analgesic agent; Z79.899 Other long term (current) drug therapy
CPT/HCPCS: 74177; 80053; 81001; 82150; 83690; 85025; 87086; 96361; 96374; 96375; 99284; 99284-25; J2270; J2405; J7030; Q9967

== ENCOUNTER 2022-11-27 09:34 | Emergency (ER) | payer MEDICAID ==
[2022-11-27] MEDS ORDERED: Sodium Chloride 0.9% 10 ML Syringe FLUSH PRN (09:46)
[2022-11-27] MEDS ORDERED: Ketorolac 30 MG/ML SDV IVPUSH ONE (10:17)
[2022-11-27] MEDS ORDERED: Ondansetron 4 MG/2 ML SDV IVPUSH ONE (10:18)
[2022-11-27 11:07] VITALS: BP 106/79; PULSE 79
[2022-11-27 11:10] LABS: THC SCREEN,URINE 50 NG/ML POSITIVE (NEGATIVE)
[2022-11-27 11:11] LABS: BARBITURATE SCREEN,URINE NEGATIVE (NEGATIVE); BENZODIAZEPINES SCREEN,URINE NEGATIVE (NEGATIVE); TCA SCREEN,URINE NEGATIVE (NEGATIVE)
== END 2022-11-27 11:11 | disposition home or self-care (01) ==
LOC: KA.ED 09:34
DX: M54.50 Low back pain, unspecified (principal); G89.29 Other chronic pain; F15.10 Other stimulant abuse, uncomplicated; Z76.5 Malingerer [conscious simulation]; E66.9 Obesity, unspecified; Z68.39 Body mass index [BMI] 39.0-39.9, adult; Z72.0 Tobacco use; Z88.1 Allergy status to other antibiotic agents; Z88.6 Allergy status to analgesic agent; Z79.899 Other long term (current) drug therapy
CPT/HCPCS: 72110; 80053; 80305-QW; 81001; 85025; 96374; 96375; 99283-25; 99284; J1885; J2405

== ENCOUNTER 2024-02-23 07:23 | Emergency (ER) | payer MEDICAID ==
[2024-02-23] MEDS: Ketorolac 30 MG/ML SDV IVPUSH ONE (08:21)
[2024-02-23 08:41] VITALS: BP 130/90; PULSE 90
== END 2024-02-23 08:36 | disposition home or self-care (01) ==
LOC: KA.ED 07:23
DX: M54.42 Lumbago with sciatica, left side (principal); G89.29 Other chronic pain; Z88.8 Allergy status to other drugs, medicaments and biological substances; Z88.5 Allergy status to narcotic agent; Z79.899 Other long term (current) drug therapy; Z90.49 Acquired absence of other specified parts of digestive tract; Z90.710 Acquired absence of both cervix and uterus
CPT/HCPCS: 96374; 99283-25; J1885

== ENCOUNTER 2024-03-08 00:12 | Emergency (ER) | payer MEDICAID ==
[2024-03-08 00:47] VITALS: BP 132/87; PULSE 101
== END 2024-03-08 00:48 | disposition home or self-care (01) ==
LOC: KA.ED 00:12
DX: G89.29 Other chronic pain (principal); M54.50 Low back pain, unspecified; E66.9 Obesity, unspecified; Z88.6 Allergy status to analgesic agent; Z88.8 Allergy status to other drugs, medicaments and biological substances; Z79.899 Other long term (current) drug therapy; Z90.49 Acquired absence of other specified parts of digestive tract; Z90.710 Acquired absence of both cervix and uterus
CPT/HCPCS: 99283

== ENCOUNTER 2024-03-09 19:23 | Emergency (ER) | payer MEDICAID ==
[2024-03-09] MEDS: Acetaminophen/HYDROcodone 325-5 MG Tab PO ONE (20:31)
[2024-03-10 03:47] VITALS: BP 123/87; PULSE 103
== END 2024-03-09 20:39 | disposition home or self-care (01) ==
LOC: KA.ED 19:23
DX: M54.50 Low back pain, unspecified (principal); G89.29 Other chronic pain; E66.9 Obesity, unspecified; Z90.49 Acquired absence of other specified parts of digestive tract; Z90.710 Acquired absence of both cervix and uterus; Z68.38 Body mass index [BMI] 38.0-38.9, adult; Z79.899 Other long term (current) drug therapy; Z88.6 Allergy status to analgesic agent; Z88.5 Allergy status to narcotic agent; Z88.8 Allergy status to other drugs, medicaments and biological substances
CPT/HCPCS: 99283; A9270-GY

== ENCOUNTER 2024-04-26 17:04 | Emergency (ER) | payer MEDICAID ==
[2024-04-26 17:22] VITALS: BP 130/90; PULSE 110
== END 2024-04-26 17:40 | disposition left against medical advice (07) ==
LOC: KA.ED 17:04
DX: M54.42 Lumbago with sciatica, left side (principal); G89.29 Other chronic pain; F11.10 Opioid abuse, uncomplicated; Z68.36 Body mass index [BMI] 36.0-36.9, adult; E66.9 Obesity, unspecified; Z79.899 Other long term (current) drug therapy; Z88.5 Allergy status to narcotic agent; Z88.8 Allergy status to other drugs, medicaments and biological substances
CPT/HCPCS: 99283

== ENCOUNTER 2024-06-04 18:05 | Emergency (ER) | payer MEDICAID ==
[2024-06-04 20:01] VITALS: BP 113/81; PULSE 98
== END 2024-06-04 18:15 | disposition left against medical advice (07) ==
LOC: KA.ED 18:05
DX: Z53.21 Procedure and treatment not carried out due to patient leaving prior to being seen by health care provider (principal)

== ENCOUNTER 2024-07-28 11:05 | Observation (INO) | payer MEDICAID ==
[2024-07-28] MEDS: Ondansetron 4 MG/2 ML SDV IVPUSH ONE (11:32)
[2024-07-28] MEDS: Sodium Chloride 0.9% 1,000 ML IV ONE (11:32)
[2024-07-28 11:34] LABS: BASOPHILS ABSOLUTE AUTO 0.04 10^3/uL (0.00-0.10); BASOPHILS PERCENT AUTO 0.3 % (0.0-1.0); EOSINOPHILS ABSOLUTE AUTO 0.01 10^3/uL (0.10-0.30); EOSINOPHILS PERCENT AUTO 0.1 % (1.0-3.0); HEMATOCRIT 40.3 % (37.0-47.0); HEMOGLOBIN 13.8 g/dL (12.0-16.0); IMMATURE GRAN ABSOLUTE AUTO 0.03 10^3/uL (0.00-0.50); IMMATURE GRAN PERCENT AUTO 0.2 % (0.0-5.0); LYMPHOCYTES ABSOLUTE AUTO 1.22 10^3/uL (1.00-4.00); LYMPHOCYTES PERCENT AUTO 10.1 % (20.0-40.0); MEAN CORPUSCULAR HEMOGLOBIN 30.3 pg (27.0-31.0); MEAN CORPUSCULAR HGB CONC 34.2 g/dL (32.0-36.0); MEAN CORPUSCULAR VOLUME 88.4 fL (82.0-92.0); MEAN PLATELET VOLUME 9.1 fL (7.4-10.4); MONOCYTES ABSOLUTE AUTO 0.28 10^3/uL (0.10-0.80); MONOCYTES PERCENT AUTO 2.3 % (2.0-8.0); NEUTROPHILS ABSOLUTE AUTO 10.55 10^3/uL (2.50-7.00); PLATELET COUNT,PLT 440 10^3/uL (150-400); RED BLOOD CELL COUNT 4.56 10^6/uL (3.80-5.50); RED CELL DISTRIBUTION WIDTH 12.1 % (11.5-14.5); WHITE BLOOD CELL COUNT,WBC 12.13 10^3/uL (5.00-10.00)
[2024-07-28] MEDS ORDERED: Sodium Chloride 0.9% 10 ML Syringe FLUSH PRN (11:48)
[2024-07-28 11:50] LABS: ALBUMIN 3.91 g/dL (3.40-5.00); ANION GAP 19.5 mmol/L (5-15); BILIRUBIN TOTAL 0.3 mg/dL (0.2-1.0); CALCIUM 9.5 mg/dL (8.7-10.3); CARBON DIOXIDE,CO2 21.6 mmol/L (21.0-32.0); CREATININE 0.64 mg/dL (0.51-1.17); EST CRCL DRUG DOSING (CG) 102.92 mL/min; POTASSIUM,K 3.1 mmol/L (3.5-5.1); PROTEIN TOTAL,TP 8.3 g/dL (6.4-8.2)
[2024-07-28] MEDS: Morphine 2 MG/ML SYRINGE ONE (12:20)
[2024-07-28] MEDS: Metoclopramide 10 MG/2 ML SDV IVPUSH ONE (12:21)
[2024-07-28] MEDS: Morphine 4 MG/ML Syringe IVPUSH ONE (12:30)
[2024-07-28] MEDS: Iopamidol 755 Mg/ML 100 ML Bottle IV ONE (12:37)
[2024-07-28] MEDS: Sodium Chloride 0.9% 50 ML IV SCH (12:37)
[2024-07-28 12:48] LABS: APPEARANCE,URINE CLEAR (CLEAR); BILIRUBIN,URINE NEGATIVE (NEGATIVE); COLOR,URINE YELLOW (YELLOW); GLUCOSE,URINE NEGATIVE (NEGATIVE); KETONES,URINE NEGATIVE (NEGATIVE); LEUKOCYTE ESTERASE,URINE NEGATIVE (NEGATIVE); NITRITE,URINE NEGATIVE (NEGATIVE); OCCULT BLOOD,URINE NEGATIVE (NEGATIVE); PH,URINE >= 9.0 (5.0-9.0); PROTEIN,URINE NEGATIVE (NEGATIVE); UROBILINOGEN,URINE 0.2 E.U./dL (0.2-1.0)
[2024-07-28] MEDS ORDERED: Melatonin 3 MG Tab PO PRN (14:51)
[2024-07-28] MEDS ORDERED: Ondansetron 4 MG Tab.DIS PO PRN (14:51)
[2024-07-28] MEDS ORDERED: Hydrocortisone 2.5% Crm 30 GM Tube TOP PRN (15:01)
[2024-07-28] MEDS ORDERED: Simethicone 80 MG Tab.Chew PO PRN (15:01)
[2024-07-28] MEDS ORDERED: Albuterol/Ipratropium 3.0-0.5 MG/3 ML Neb Soln INH PRN (15:01)
[2024-07-28] MEDS ORDERED: Diclofenac Sodium 1% Gel 100 GM Tube TOP PRN (15:01)
[2024-07-28] MEDS ORDERED: Fluticasone NASAL Spray 16 GM Bottle NASBOTH PRN (15:01)
[2024-07-28] MEDS ORDERED: oxyCODONE 5 MG Tab PO PRN (15:01)
[2024-07-28] MEDS ORDERED: hydrOXYzine HCl 25 MG Tab PO PRN (15:01)
[2024-07-28] MEDS: Pantoprazole 40 MG Vial IVPUSH SCH (15:28)
[2024-07-28] MEDS: Ketorolac 30 MG/ML SDV IVPUSH SCH (15:28)
[2024-07-28] MEDS: Metoclopramide 10 MG/2 ML SDV IVPUSH SCH (15:29)
[2024-07-28] MEDS: Ondansetron 4 MG/2 ML SDV IV PRN (17:52)
[2024-07-28] MEDS ORDERED: Albuterol 8 GM Inhaler INH PRN (18:14)
[2024-07-28] MEDS ORDERED: ALPRAZolam 0.25 MG Tab PO PRN (18:15)
[2024-07-28 19:14] LABS: ALBUMIN 3.58 g/dL (3.40-5.00); ANION GAP 13.9 mmol/L (5-15); BILIRUBIN TOTAL 0.4 mg/dL (0.2-1.0); CALCIUM 8.7 mg/dL (8.7-10.3); CARBON DIOXIDE,CO2 25.8 mmol/L (21.0-32.0); CREATININE 0.63 mg/dL (0.51-1.17); EST CRCL DRUG DOSING (CG) 104.55 mL/min; MAGNESIUM 1.6 mg/dL (1.8-2.4); POTASSIUM,K 3.7 mmol/L (3.5-5.1); PROTEIN TOTAL,TP 7.6 g/dL (6.4-8.2)
[2024-07-28] MEDS: DAPTOmycin 500 MG Vial IV SCH (19:29)
[2024-07-28] MEDS ORDERED: AMPHETAMINE PO SCH (21:00)
[2024-07-28] MEDS ORDERED: DEXTROAMPHETAMINE PO SCH (21:00)
[2024-07-28] MEDS: busPIRone 10 MG Tab PO SCH (21:44)
[2024-07-28] MEDS: Gabapentin 300 MG Cap PO SCH (21:44)
[2024-07-28] MEDS: tiZANidine 4 MG Tab PO SCH (21:44)
[2024-07-29 07:54] LABS: BASOPHILS ABSOLUTE AUTO 0.06 10^3/uL (0.00-0.10); BASOPHILS PERCENT AUTO 0.7 % (0.0-1.0); EOSINOPHILS ABSOLUTE AUTO 0.12 10^3/uL (0.10-0.30); EOSINOPHILS PERCENT AUTO 1.3 % (1.0-3.0); HEMATOCRIT 39.6 % (37.0-47.0); HEMOGLOBIN 13.1 g/dL (12.0-16.0); IMMATURE GRAN ABSOLUTE AUTO 0.02 10^3/uL (0.00-0.50); IMMATURE GRAN PERCENT AUTO 0.2 % (0.0-5.0); LYMPHOCYTES ABSOLUTE AUTO 2.41 10^3/uL (1.00-4.00); LYMPHOCYTES PERCENT AUTO 26.7 % (20.0-40.0); MEAN CORPUSCULAR HEMOGLOBIN 29.8 pg (27.0-31.0); MEAN CORPUSCULAR HGB CONC 33.1 g/dL (32.0-36.0); MEAN CORPUSCULAR VOLUME 90.2 fL (82.0-92.0); MONOCYTES ABSOLUTE AUTO 0.45 10^3/uL (0.10-0.80); NEUTROPHILS ABSOLUTE AUTO 5.95 10^3/uL (2.50-7.00); NEUTROPHILS PERCENT AUTO 66.1 % (50.0-70.0); PLATELET COUNT,PLT 339 10^3/uL (150-400); RED BLOOD CELL COUNT 4.39 10^6/uL (3.80-5.50); RED CELL DISTRIBUTION WIDTH 12.3 % (11.5-14.5); WHITE BLOOD CELL COUNT,WBC 9.01 10^3/uL (5.00-10.00)
[2024-07-29 08:15] LABS: ALBUMIN 3.48 g/dL (3.40-5.00); ANION GAP 11.6 mmol/L (5-15); BILIRUBIN TOTAL 0.3 mg/dL (0.2-1.0); CARBON DIOXIDE,CO2 28.3 mmol/L (21.0-32.0); CREATININE 0.77 mg/dL (0.51-1.17); EST CRCL DRUG DOSING (CG) 85.54 mL/min; MAGNESIUM 1.9 mg/dL (1.8-2.4); POTASSIUM,K 3.9 mmol/L (3.5-5.1); PROTEIN TOTAL,TP 7.4 g/dL (6.4-8.2)
[2024-07-29] MEDS: DULoxetine 30 MG Cap PO SCH (08:35)
[2024-07-29] MEDS: ARIPiprazole 5 MG Tab PO SCH (08:35)
[2024-07-29] MEDS ORDERED: DULoxetine 30 MG Cap PO SCH (09:00)
[2024-07-29] MEDS ORDERED: Lidocaine 4% 1 each Patch TOP SCH (09:00)
[2024-07-29] MEDS: Acetaminophen 325 MG Tab PO PRN (10:22)
[2024-07-29 12:10] VITALS: PULSE 82
[2024-07-29 12:21] VITALS: BP 110/77
== END 2024-07-29 12:45 | disposition home or self-care (01) ==
LOC: KA.ED 11:05 → KA.MS 14:01
PROVIDERS: ADMIT Family Medicine; ATTEND Family Medicine
DX: K52.9 Noninfective gastroenteritis and colitis, unspecified (principal); F31.9 Bipolar disorder, unspecified; F17.210 Nicotine dependence, cigarettes, uncomplicated; Z79.899 Other long term (current) drug therapy
CPT/HCPCS: 36415; 74177; 80053; 81003; 83690; 83735; 84484; 85025; 93005; 93010; 96361; 96374; 96375; 99223-GT; 99233-GT; 99239-GT; 99284; 99285-25; A9270-GY; J0878; J1885; J2270; J2405; J2470; J2765; J3490; J7030; Q3014; Q9967

== ENCOUNTER 2024-10-24 14:12 | Emergency (ER) | payer MEDICAID ==
[2024-10-24 14:24] VITALS: BP 116/87; PULSE 118
[2024-10-24] MEDS ORDERED: Sodium Chloride 0.9% 10 ML Syringe FLUSH PRN (14:25)
[2024-10-24 14:38] LABS: APPEARANCE,URINE CLEAR (CLEAR); BILIRUBIN,URINE NEGATIVE (NEGATIVE); COLOR,URINE YELLOW (YELLOW); GLUCOSE,URINE NEGATIVE (NEGATIVE); KETONES,URINE TRACE mg/dL (NEGATIVE); LEUKOCYTE ESTERASE,URINE NEGATIVE (NEGATIVE); NITRITE,URINE NEGATIVE (NEGATIVE); OCCULT BLOOD,URINE NEGATIVE (NEGATIVE); PH,URINE 5.5 (5.0-9.0); PROTEIN,URINE NEGATIVE (NEGATIVE)
[2024-10-24 14:43] LABS: BACTERIA,URINE NOT SEEN /HPF (NONE TO FEW); EPITHELIAL CELLS,URINE MANY /LPF; RBC,URINE 0-5 /HPF (0-5); WBC,URINE NOT SEEN /HPF (0-5)
[2024-10-24 14:44] LABS: HYALINE CASTS,URINE FEW
== END 2024-10-24 15:12 | disposition left against medical advice (07) ==
LOC: KA.ED 14:12
DX: Z53.21 Procedure and treatment not carried out due to patient leaving prior to being seen by health care provider (principal)
CPT/HCPCS: 81001; 81025; 99283

== ENCOUNTER 2025-02-09 08:27 | Emergency (ER) | payer MEDICAID ==
[2025-02-09 09:56] VITALS: BP 134/89; PULSE 99
== END 2025-02-09 09:59 | disposition home or self-care (01) ==
LOC: KA.ED 08:27
DX: F41.9 Anxiety disorder, unspecified (principal); G89.29 Other chronic pain; M54.9 Dorsalgia, unspecified; E66.9 Obesity, unspecified; F17.200 Nicotine dependence, unspecified, uncomplicated; Z88.5 Allergy status to narcotic agent; Z88.6 Allergy status to analgesic agent; Z88.8 Allergy status to other drugs, medicaments and biological substances; Z79.82 Long term (current) use of aspirin; Z79.899 Other long term (current) drug therapy; Z90.49 Acquired absence of other specified parts of digestive tract; Z90.710 Acquired absence of both cervix and uterus; Z68.37 Body mass index [BMI] 37.0-37.9, adult
CPT/HCPCS: 99283; 99284

== ENCOUNTER 2025-03-25 04:23 | Emergency (ER) | payer MEDICAID ==
[2025-03-25 05:13] VITALS: BP 134/86; PULSE 101
== END 2025-03-25 05:07 | disposition home or self-care (01) ==
LOC: KA.ED 04:23
DX: S60.443A External constriction of left middle finger, initial encounter (principal); F17.210 Nicotine dependence, cigarettes, uncomplicated; Z88.6 Allergy status to analgesic agent; Z88.8 Allergy status to other drugs, medicaments and biological substances; Z88.5 Allergy status to narcotic agent; Z79.899 Other long term (current) drug therapy; Z79.51 Long term (current) use of inhaled steroids; Z79.82 Long term (current) use of aspirin; Z90.49 Acquired absence of other specified parts of digestive tract; W49.04XA Ring or other jewelry causing external constriction, initial encounter; Y93.89 Activity, other specified
CPT/HCPCS: 99283